=== PATIENT | female | born 1950 | race Caucasian/White ===

== ENCOUNTER 2017-12-03 19:13 | Inpatient (IN) | payer OTHER ==
[2017-12-03] MEDS ORDERED: NA CHLORIDE 0.9% 1,000 ML ONE (19:47)
[2017-12-03] MEDS ORDERED: NA CHLORIDE 0.9% 500 ML ONE (19:48)
[2017-12-03] MEDS ORDERED: ONDANSETRON 4 MG/2 ML VIAL ONE (19:48)
[2017-12-03] MEDS ORDERED: Morphine 2 MG/2 ML SYR ONE (19:49)
[2017-12-03 20:13] LABS: Absolute Lymphocytes (CBC) 1.9 K/uL (0.7-4.9); Absolute Monocytes 0.5 K/uL (0.1-1.3); Absolute Neutrophil 2.7 K/uL (1.8-8.0); Basophils % 0.9 % (0-1.3); Eosinophils % 2.5 % (0-4.4); Hematocrit 43.1 % (36.0-45.0); Lymphocytes % 35.1 % (15.3-44.8); MCH 32.6 pg (27.0-35.0); MCV 95.5 fL (80-100); MPV 9.7 fL (7.6-11.3); Monocytes % 9.6 % (3.3-12.3); RBC Red Blood Cell Count 4.51 M/uL (3.86-4.86)
[2017-12-03 20:23] LABS: Bicarbonate 28 mEq/L (21-31); Glucose Level 118 mg/dL (65-120); Lipase 29 U/L (22-51); Potassium 3.7 mEq/L (3.6-5.0); Sodium Level 137 mEq/L (135-145)
[2017-12-03 20:29] LABS: ALT/SGPT 78 IU/L (10-60); AST/SGOT 84 IU/L (10-42); Albumin 3.7 g/dL (3.2-5.5); Alkaline Phosphatase 148 IU/L (42-121); Amylase Level 76 U/L (28-100); BUN Blood Urea Nitrogen 6 mg/dL (6-20); Bilirubin Direct 0.2 mg/dL (0-0.2); Bilirubin Total 0.5 mg/dL (0.3-1.2); Protein, Total 7.2 g/dL (6.0-8.3)
[2017-12-03] MEDS ORDERED: MEPERIDINE HCL 25 MG/0.5 ML ONE (20:38)
[2017-12-03 21:52] LABS: Urine Bacteria <20 /HPF (<20); Urine Culture Reflex Order REFLEXED; Urine Mucus 1+ /HPF (NONE SEEN); Urine RBC <5 /HPF (NONE SEEN)
[2017-12-03 22:11] LABS: Urine Blood TRACE (NEG); Urine Glucose NEGATIVE (NEG); Urine Protein NEGATIVE (NEG); Urine pH 5.5 (5.0-7.0)
--- NOTE | 2017-12-03 22:18 | RAD REPORT ---
EXAM DESCRIPTION: CT - Abdomen Pelvis W Contrast - 12/03/2017 9:46 pm CLINICAL HISTORY: Abdominal pain. COMPARISON: 2011 TECHNIQUE: Computed axial tomography of the abdomen and pelvis was obtained. 100 cc Isovue-300 is ad ministered intravenously. Oral contrast was given. All CT scans are performed using dose optimization technique as appropriate and may include automated exposure control or mA/KV adjustment according to patient size. FINDINGS: A cirrhotic liver contains fatty infiltration. A tiny cyst is seen. The spleen is mildly enlarged. Pancreas, adrenals and kidneys appear unremarkable. The wall of most of the colon appears mildly to moderately thickened. Pneumatosis intestinalis is not seen. Free air is not present. An abscess is not noted Coarse calcifications in the right common iliac artery result in a high-grade stenosis IMPRESSION: Mild to moderate pancolitis
--- NOTE | 2017-12-03 22:42 | ER ---
Nurse's Notes [facility] Name: Roberta Owens Age: 67 yrs Sex: Female : 1950 Arrival Date: 12/03/2017 Time: 19:18 Bed 18 Private MD: Jarrett Rawls E Diagnosis: Abdominal pain. Pancolitis. UTI Presentation: 12/03 19:22 Presenting complaint: Patient states: I have been having abd pain, diarrhea, and rectal la1 pain for the last 24 hours. Transition of care: patient was not received from another setting of care. Onset of symptoms was December 03, 2017. Initial Sepsis Screen: Does the patient meet any 2 criteria? No. Patient's initial sepsis screen is negative. Does the patient have a suspected source of infection? No. Patient's initial sepsis screen is negative. Care prior to arrival: None. 19:22 Method Of Arrival: Wheelchair la1 19:22 Acuity: PHILIP 3 la1 Historical: - Allergies: 19:24 Aspirin; la1 19:24 Codeine; la1 - PMHx: 19:24 Anxiety; Back pain; Colitis; GERD; hepatitis c; la1 - PSHx: 19:24 Hysterectomy; neck sx; Lumpectomy; la1 - Immunization history:: Adult Immunizations up to date. - Social history:: Smoking status: Patient uses tobacco products, smokes one pack cigarettes per day. Screenin:41 Abuse screen: Denies threats or abuse. Nutritional screening: No deficits noted. bb Tuberculosis screening: No symptoms or risk factors identified. Fall Risk None identified. Assessment: 19:41 General: Appears in no apparent distress. uncomfortable, slender, Behavior is bb cooperative, anxious. Pain: Complains of pain in abdomen Pain currently is 8 out of 10 on a pain scale. Pain began 3 weeks ago worsening over the last 24 hours. Neuro: Level of Consciousness is awake, alert, obeys commands, Oriented to person, place, time, situation, Speech is normal. Cardiovascular: Heart tones S1 S2 present. Respiratory: Respiratory effort is even, unlabored, Breath sounds are clear bilaterally. GI: Abdomen is distended, Bowel sounds present X 4 quads. Abd is soft X 4 quads Abdomen is tender to palpation X 4 quads. Reports diarrhea. Derm: Skin is pink, warm \T\ dry. Musculoskeletal: Circulation, motion, and sensation intact. 20:33 Reassessment: pt states pain medication is not helping at all. Dr George notified new bb orders received pt medicated see DAMIAN, pt completed contrast CT notified. 20:50 Reassessment: pt states pain medication is helping pain has decreased. bb 21:34 Reassessment: pt to CT scan via wheelchair with net technical architect. Pt is A\T\O x 4, resp unlabored, bb still uncomfortable. IV site intact. 23:41 Reassessment: Patient and/or family updated on plan of care and expected duration. Pain bb level reassessed. Patient is alert, oriented x 3, equal unlabored respirations, skin warm/dry/pink. pt is awaiting orders prior to transfer to room 229. 12/04 00:11 Reassessment: Dr Maxwell at bedside for pt evaluation. bb 00:55 Reassessment: Patient and/or family updated on plan of care and expected duration. Pain bb level reassessed. Patient is alert, oriented x 3, equal unlabored respirations, skin warm/dry/pink. IV site intact, patent, fluids infusing, report called to Greer DUPONT pt transported to room 229 via wheelchair accompanied by family. Vital Signs: 12/03 19:24 BP 147 / 74; Pulse 106; Resp 19; Temp 99.0(TE); Pulse Ox 100% on R/A; Weight 47.17 kg; la1 Height 5 ft. 3 in. (160.02 cm); 20:51 BP 183 / 82; Pulse 87; Resp 18 S; Pulse Ox 97% on R/A; bb 22:10 BP 157 / 85; Pulse 84; Resp 18 S; Pulse Ox 99% on R/A; bb 23:00 BP 180 / 85; Pulse 78; Resp 18 S; Pulse Ox 98% on R/A; bb 12/04 00:52 BP 160 / 78; Pulse 70; Resp 20; cc 12/03 19:24 Body Mass Index 18.42 (47.17 kg, 160.02 cm) la1 ED Course: 12/03 19:18 Patient arrived in ED. es 19:19 Jarrett Rawls MD is Private Physician. es 19:23 Triage completed. la1 19:24 Zaheer George MD is Attending Physician. pkl 19:24 Arm band placed on left wrist. la1 19:30 Haresh Mckenzie, RN is Primary Nurse. mg2 19:41 Rama Martinez, KIAH is Primary Nurse. bb 19:41 Patient has correct armband on for positive identification. Placed in gown. Bed in low bb position. Call light in reach. Side rails up X2. Adult w/ patient. Pulse ox on. NIBP on. Warm blanket given. 19:41 Served as a anthropologist physical during rectal exam. bb 20:03 Missed attempt(s): 20 gauge in left antecubital area. bb 20:05 Inserted saline lock: 20 gauge in left forearm, using aseptic technique. Blood mg2 collected. 21:46 CT Abd/Pelvis - W/Contrast In Process Unspecified. EDMS 22:40 Cheli Schaffer MD is Hospitalizing Provider. pkl 23:40 Patient admitted, IV remains in place. bb Administered Medications: 20:06 Drug: NS 0.9% 500 ml Route: IV; Rate: bolus; Site: left forearm; mg2 21:32 Follow up: IV Status: Completed infusion; IV Intake: 500ml la1 20:06 Drug: morphine 2 mg Route: IVP; Site: left forearm; mg2 20:49 Follow up: Response: No adverse reaction; Pain is unchanged, physician notified bb 20:06 Drug: Zofran 4 mg Route: IVP; Site: left forearm; mg2 20:49 Follow up: Response: No adverse reaction bb 20:20 Drug: Demerol 25 mg Route: IVP; Site: left forearm; bb 21:30 Follow up: Response: Pain is decreased la1 21:32 Drug: NS 0.9% 1000 ml Route: IV; Rate: 100 ml/hr; Site: left forearm; la1 12/04 00:56 Follow up: IV Status: Infusion continued upon admission; IV Intake: 250ml bb Point of Care Testing: Guaiac: 12/03 19:44 Stool Guaiac: Negative; Stool Hemoccult Control: Pass; bb Intake: 21:32 IV: 500ml; Total: 500ml. la1 12/04 00:56 IV: 250ml; Total: 750ml. bb Outcome: 12/03 22:41 Decision to Hospitalize by Provider. pkl 23:40 Instructed on the need for admit. bb 12/04 00:55 Admitted to Tele accompanied by nurse, family with patient, via wheelchair, room 229, bb with chart, Report called to Greer DUPONT Condition: stable 00:57 Patient left the ED. rudi Signatures: Dispatcher [employer] Zaheer Ponce MD MD pkl Salyer, Edna es Ballard, Brenda RN RN bb Sandy Al Lee RN RN la1 Haresh Mckenzie RN RN mg2
--- NOTE | 2017-12-03 22:42 | EDPHYS ---
Physician Documentation [facility] Name: Roberta Owens Age: 67 yrs Sex: Female : 1950 Arrival Date: 12/03/2017 Time: 19:18 Bed 18 Private MD: Jarrett Rawls E ED Physician Zaheer George HPI: 12/03 19:44 This 67 yrs old Female presents to ER via Wheelchair with complaints of pkl Abdominal Pain, Rectal Pain. 19:44 The patient presents with abdominal pain that is diffuse, rectal pain. Onset: The pkl symptoms/episode began/occurred 3 day(s) ago. Associated signs and symptoms: Pertinent positives: diarrhea. Historical: - Allergies: 19:24 Aspirin; la1 19:24 Codeine; la1 - PMHx: 19:24 Anxiety; Back pain; Colitis; GERD; hepatitis c; la1 - PSHx: 19:24 Hysterectomy; neck sx; Lumpectomy; la1 - Immunization history:: Adult Immunizations up to date. - Social history:: Smoking status: Patient uses tobacco products, smokes one pack cigarettes per day. ROS: 19:44 Eyes: Negative for injury, pain, redness, and discharge, ENT: Negative for injury, pkl pain, and discharge, Neck: Negative for injury, pain, and swelling, Cardiovascular: Negative for chest pain, palpitations, and edema, Respiratory: Negative for shortness of breath, cough, wheezing, and pleuritic chest pain. 19:44 Abdomen/GI: Positive for abdominal pain, diarrhea, of the right upper quadrant, left upper quadrant, right lower quadrant and left lower quadrant. 19:44 Back: Negative for pain at rest, acute changes. 19:44 : Negative for urinary symptoms. 19:44 MS/extremity: Negative for acute changes. 19:44 Skin: Negative for rash. 19:44 Neuro: Negative for altered mental status. Exam: 19:44 Head/Face: Normocephalic, atraumatic. Eyes: Pupils equal round and reactive to light, pkl extra-ocular motions intact. Lids and lashes normal. Conjunctiva and sclera are non-icteric and not injected. Cornea within normal limits. Periorbital areas with no swelling, redness, or edema. ENT: Nares patent. No nasal discharge, no septal abnormalities noted. Tympanic membranes are normal and external auditory canals are clear. Oropharynx with no redness, swelling, or masses, exudates, or evidence of obstruction, uvula midline. Mucous membranes moist. Neck: Trachea midline, no thyromegaly or masses palpated, and no cervical lymphadenopathy. Supple, full range of motion without nuchal rigidity, or vertebral point tenderness. No Meningismus. Chest/axilla: Normal chest wall appearance and motion. Nontender with no deformity. No lesions are appreciated. Cardiovascular: Regular rate and rhythm with a normal S1 and S2. No gallops, murmurs, or rubs. Normal PMI, no JVD. No pulse deficits. Respiratory: Lungs have equal breath sounds bilaterally, clear to auscultation and percussion. No rales, rhonchi or wheezes noted. No increased work of breathing, no retractions or nasal flaring. 19:44 Abdomen/GI: Bowel sounds: normal, Palpation: soft, mild abdominal tenderness, in the right lower quadrant and left lower quadrant, Rectal exam: Stool: guaiac negative, the exam is chaperoned by the nurse. 19:44 Back: Exam negative for acute changes. 19:44 : Exam negative for acute changes. 19:44 Musculoskeletal/extremity: Exam is negative for acute changes. 19:44 Skin: Exam negative for rash. 19:44 Neuro: Orientation: is normal, Mentation: is normal, Cranial nerves: grossly normal, Motor: is normal. Vital Signs: 19:24 BP 147 / 74; Pulse 106; Resp 19; Temp 99.0(TE); Pulse Ox 100% on R/A; Weight 47.17 kg; la1 Height 5 ft. 3 in. (160.02 cm); 20:51 BP 183 / 82; Pulse 87; Resp 18 S; Pulse Ox 97% on R/A; bb 22:10 BP 157 / 85; Pulse 84; Resp 18 S; Pulse Ox 99% on R/A; bb 23:00 BP 180 / 85; Pulse 78; Resp 18 S; Pulse Ox 98% on R/A; bb 12/04 00:52 BP 160 / 78; Pulse 70; Resp 20; cc 12/03 19:24 Body Mass Index 18.42 (47.17 kg, 160.02 cm) la1 MDM: 12/03 19:24 Patient medically screened. pkl 22:39 Data reviewed: vital signs, nurses notes, lab test result(s), radiologic studies, CT pkl scan, plain films. 12/03 19:43 Order name: Amylase, Serum; Complete Time: 20:45 pkl 12/03 19:43 Order name: Basic Metabolic Panel; Complete Time: 20:45 pkl 12/03 19:43 Order name: CBC with Diff; Complete Time: 20:45 pkl 12/03 19:43 Order name: Creatinine for Radiology; Complete Time: 20:45 pkl 12/03 19:43 Order name: Hepatic Function; Complete Time: 20:45 pkl 12/03 19:43 Order name: Lipase; Complete Time: 20:45 pkl 12/03 19:43 Order name: Urine Microscopic Only; Complete Time: 22:05 pkl 12/03 19:43 Order name: Stool Culture pkl 12/03 19:43 Order name: CT Abd/Pelvis - W/Contrast; Complete Time: 22:26 pkl 12/03 21:32 Order name: Urine Dipstick--Ancillary (enter results); Complete Time: 22:26 la1 12/03 21:54 Order name: Urine Culture [facility] 12/03 19:43 Order name: IV Saline Lock; Complete Time: 20:50 pkl 12/03 19:43 Order name: Labs collected and sent; Complete Time: 20:50 pkl 12/03 19:43 Order name: Urine Dipstick-Ancillary (obtain specimen); Complete Time: 20:50 pkl Administered Medications: 20:06 Drug: NS 0.9% 500 ml Route: IV; Rate: bolus; Site: left forearm; mg2 21:32 Follow up: IV Status: Completed infusion; IV Intake: 500ml la1 20:06 Drug: morphine 2 mg Route: IVP; Site: left forearm; mg2 20:49 Follow up: Response: No adverse reaction; Pain is unchanged, physician notified bb 20:06 Drug: Zofran 4 mg Route: IVP; Site: left forearm; mg2 20:49 Follow up: Response: No adverse reaction bb 20:20 Drug: Demerol 25 mg Route: IVP; Site: left forearm; bb 21:30 Follow up: Response: Pain is decreased la1 21:32 Drug: NS 0.9% 1000 ml Route: IV; Rate: 100 ml/hr; Site: left forearm; la1 12/04 00:56 Follow up: IV Status: Infusion continued upon admission; IV Intake: 250ml bb Point of Care Testing: Guaiac: 12/03 19:44 Stool Guaiac: Negative; Stool Hemoccult Control: Pass; bb Disposition: 12/03/17 22:41 Hospitalization ordered by Cheli Schaffer for Inpatient Admission. Preliminary diagnosis is Abdominal pain. Pancolitis. UTI. - Bed requested for Telemetry/MedSurg (Inpatient). - Status is Inpatient Admission. bb - Condition is Stable. - Problem is new. - Symptoms are unchanged. UTI on Admission? Yes Signatures: Dispatcher [employer] EDMS Zaheer George MD MD pkl Claire Khalil RN RN Rama Martinez RN RN bb Johan Zepeda RN RN la1 Haresh Mckenzie RN RN mg2 Corrections: (The following items were deleted from the chart) 23:04 22:41 Hospitalization Ordered by Cheli Schaffer MD for Inpatient Admission. Preliminary fc diagnosis is Abdominal pain. Pancolitis. UTI. Bed requested for Telemetry/MedSurg (Inpatient). Status is Inpatient Admission. Condition is Stable. Problem is new. Symptoms are unchanged. UTI on Admission? Yes. pkl 12/04 00:57 12/03 23:04 12/03/2017 22:41 Hospitalization Ordered by Cheli Schaffer MD for Inpatient bb Admission. Preliminary diagnosis is Abdominal pain. Pancolitis. UTI. Bed requested for Telemetry/MedSurg (Inpatient). Status is Inpatient Admission. Condition is Stable. Problem is new. Symptoms are unchanged. UTI on Admission? Yes. fc
--- NOTE | 2017-12-04 00:31 | P.HP ---
Certification for Inpatient Patient admitted to: Inpatient With expected LOS: >2 Midnights Practitioner: I am a practitioner with admitting privileges, knowledge of patient current condition, hospital course, and medical plan of care. Services: Services provided to patient in accordance with Admission requirements found in Title 42 Section 412.3 of the Code of Federal Regulations Patient History Date of Service: 12/04/17 Reason for admission: pancolitis History of Present Illness: Ms Owens is a 67 years old woman with history of chronic back pain, IBS, previous episodes of colitis, tobacco abuse, who start about 3 days ago with severe abdominal pain. The pain is diffuse, associated with diarrhea. She denied nausea, vomiting, fever or chills. She has had this symptoms in the past. Her pain is about 9/10 of intensity. Lab work shows normal WBC count, liver function mildly abnormal, UA consistent with UTI. CT abd/pelvis report pancolitis. Allergies aspirin Allergy (Unverified 10/27/14 15:56) Unknown codeine [Codeine] Allergy (Verified 12/19/11 13:11) Itching/Hives/Rash - Past Medical/Surgical History -: colitis -: Hepatitis C -: Chrnic back pain -: anxiety -: tobacco abuse -: IBS -: hysterectomy -: lumpectomy - Family History Family History: Reviewed- Non-Contributory - Social History Smoking Status: Current every day smoker Counseled patient to stop smoking for: less than 10 minutes Alcohol use: No CD- Drugs: No Place of Residence: Home Review of Systems 10-point ROS is otherwise unremarkable Physical Examination - Physical Exam General: Alert, In no apparent distress HEENT: Atraumatic, PERRLA, Mucous membr. moist/pink, EOMI, Sclerae nonicteric Neck: Supple, 2+ carotid pulse no bruit, No LAD, Without JVD or thyroid abnormality Respiratory: Clear to auscultation bilaterally, Normal air movement Cardiovascular: Regular rate/rhythm, Normal S1 S2 Gastrointestinal: Normal bowel sounds, Tenderness (diffuse) Musculoskeletal: No tenderness Integumentary: No rashes Neurological: Normal speech, Normal strength at 5/5 x4 extr, Normal tone, Normal affect Lymphatics: No axilla or inguinal lymphadenopathy - Studies Laboratory Data (last 24 hrs) 12/03/17 19:50: Creatinine 0.59 12/03/17 19:50: WBC 5.3, Hgb 14.7, Hct 43.1, Plt Count 119 L 12/03/17 19:50: Sodium 137, Potassium 3.7, BUN 6, Creatinine 0.61, Glucose 118, Total Bilirubin 0.5, AST 84 H, ALT 78 H, Alkaline Phosphatase 148 H, Amylase 76 , Lipase 29 Assessment and Plan - Plan The patient will be admitted due to pancolitis. This is not her first episode. Will check for C.Diff, order IV fluids, clear liquid diet. Start empiric treatment with Cipro and Flagyl. Consult Dr Fortune for evaluation and recommendations. Urine culture in process. - Advance Directives Does patient have a Living Will: No Does patient have a Durable POA for Healthcare: No - Code Status/Comfort Care Code Status Assessed: Yes Code Status: Full Code
[2017-12-04] MEDS ORDERED: FENTANYL CITR 100 MCG/2 ML IV PRN (00:51)
[2017-12-04] MEDS ORDERED: ACETAMINOPHEN 500 MG TAB PO PRN (00:51)
[2017-12-04] MEDS ORDERED: ONDANSETRON 4 MG/2 ML VIAL IV PRN (00:51)
[2017-12-04] MEDS: CIPROFLOXACIN 400mg IV 400 MG/200 ML BAG IV SCH ×2 (01:35→12:35)
[2017-12-04] MEDS: NA CHLORIDE 0.9% 1,000 ML IV SCH ×2 (01:35→11:00)
[2017-12-04 01:38] VITALS: BMI 18.8
[2017-12-04] MEDS: METRONIDAZOLE 500mg IVPB 500 MG/100 ML BAG IV SCH ×2 (03:00→08:21)
[2017-12-04] MEDS: MEPERIDINE HCL 25 MG/0.5 ML IV PRN ×2 (03:01→12:35)
[2017-12-04 05:16] LABS: Absolute Lymphocytes (CBC) 1.9 K/uL (0.7-4.9); Absolute Monocytes 0.4 K/uL (0.1-1.3); Absolute Neutrophil 2.1 K/uL (1.8-8.0); Basophils % 0.7 % (0-1.3); Hematocrit 39.8 % (36.0-45.0); Lymphocytes % 42.4 % (15.3-44.8); MCH 32.5 pg (27.0-35.0); MCV 96.9 fL (80-100); MPV 9.6 fL (7.6-11.3); Monocytes % 9.1 % (3.3-12.3); RBC Red Blood Cell Count 4.11 M/uL (3.86-4.86)
[2017-12-04] MEDS ORDERED: HYDRALAZINE HCL 20 MG/ML VIAL IV ONE (05:20)
[2017-12-04 05:24] LABS: BUN Blood Urea Nitrogen 5 mg/dL (6-20); Bicarbonate 29 mEq/L (21-31); Glucose Level 100 mg/dL (65-120); Magnesium 2.1 mg/dL (1.8-2.5); Potassium 3.7 mEq/L (3.6-5.0); Sodium Level 139 mEq/L (135-145)
[2017-12-04] MEDS ORDERED: POTASSIUM CL SA 10 MEQ TAB PO ONE (05:42)
[2017-12-04] MEDS ORDERED: ALPRAZOLAM 1 MG TABLET PO PRN (09:57)
[2017-12-04 17:07] VITALS: BP 164/56; TEMP 99
[2017-12-04 17:10] VITALS: O2SAT 98
[2017-12-05] MEDS ORDERED: THYROID 30 MG TAB PO SCH (06:30)
[2017-12-05] MEDS ORDERED: PANTOPRAZOLE 40MG TABLET PO SCH (06:30)
== END 2017-12-04 17:05 | disposition home or self-care (01) | DRG 386 ==
LOC: ER 19:13 → ERHOLD 22:41 → 2ND 12-04 00:45
PROVIDERS: ADMIT Internal Medicine; ATTEND Internal Medicine
DX: K51.00 Ulcerative (chronic) pancolitis without complications (principal); N39.0 Urinary tract infection, site not specified; Z88.6 Allergy status to analgesic agent; F17.210 Nicotine dependence, cigarettes, uncomplicated
CPT/HCPCS: 36415; 74177; 80048; 80076; 81003; 81015; 82150; 83690; 83735; 85025; 87077; 87086; 87088; 87186; 96361; 96374; 96375; 99285; J0360; J0744; J2175; J2270; J2405; J3010; J7030; Q9967

== ENCOUNTER 2019-02-13 21:21 | Observation (INO) | payer OTHER ==
[2019-02-13 22:39] LABS: Absolute Lymphocytes (CBC) 1.9 K/uL (0.7-4.9); Basophils % 0.9 % (0-1.3); Hematocrit 43.2 % (36.0-45.0); Lymphocytes % 40.5 % (15.3-44.8); RBC Red Blood Cell Count 4.38 M/uL (3.86-4.86)
[2019-02-13] MEDS ORDERED: ONDANSETRON 4 MG/2 ML VIAL ONE (22:39)
[2019-02-13] MEDS ORDERED: FENTANYL CITR 100 MCG/2 ML ONE (22:39)
[2019-02-13] MEDS ORDERED: NA CHLORIDE 0.9% 1,000 ML ONE (22:39)
[2019-02-13 22:42] LABS: Protime INR 1.13
[2019-02-13 22:52] LABS: Urine Blood NEGATIVE (NEG); Urine Glucose NEGATIVE (NEG); Urine Protein NEGATIVE (NEG); Urine pH 5.5 (5.0-7.0)
[2019-02-13 23:00] LABS: ALT/SGPT 139 U/L (12-78); AST/SGOT 142 U/L (15-37); Albumin 3.7 g/dL (3.4-5.0); Alkaline Phosphatase 216 U/L (45-117); BUN Blood Urea Nitrogen 8 mg/dL (7-18); Bicarbonate 30 mmol/L (21-32); Bilirubin Direct 0.2 mg/dL (0-0.2); Bilirubin Total 0.5 mg/dL (0.2-1.0); Glucose Level 110 mg/dL (74-106); Magnesium 2.2 mg/dL (1.8-2.4); NT PRO-BNP 125 pg/mL (<125); Potassium 4.5 mmol/L (3.5-5.1); Protein, Total 7.6 g/dL (6.4-8.2); Sodium Level 141 mmol/L (136-145); Troponin (Emerg Dept Use Only) < 0.02 ng/mL (0.0-0.045)
[2019-02-14] MEDS ORDERED: CEFTRIAXONE/SWI 1gm 1 GM/10 ML SYR ONE (00:11)
--- NOTE | 2019-02-14 02:29 | EDPHYS ---
Physician Documentation [facility] Name: Roberta Owens Age: 68 yrs Sex: Female : 1950 Arrival Date: 02/13/2019 Time: 21:24 Bed 23 Private MD: ED Physician Melvin Whitfield HPI: 02/13 22:11 This 68 yrs old Female presents to ER via Ambulatory with complaints of Back yonis Pain. 22:11 The patient presents with pain that is acute, with no known mechanism of injury. The yonis symptoms are located in the low back. Onset: The symptoms/episode began/occurred 2 day(s) ago. The pain does not radiate. Associated signs and symptoms: The patient has no apparent associated signs or symptoms. The problem was sustained from unknown cause. Modifying factors: The patient symptoms are alleviated by remaining still, the patient symptoms are aggravated by movement. Severity of symptoms: At their worst the symptoms were moderate, in the emergency department the symptoms are unchanged. The patient has not experienced similar symptoms in the past. Historical: - Allergies: 21:43 Aspirin; aj1 21:43 Codeine; aj1 - Home Meds: 21:43 [place] Thyroid Oral [Active]; Aciphex Oral [Active]; Hydrocodone-Acetaminophen Oral aj1 [Active]; Alprazolam Oral [Active]; Dexilant oral oral [Active]; - PMHx: 21:43 Anxiety; Back pain; Colitis; GERD; Hepatitis C; aj1 - PSHx: 21:43 Hysterectomy; neck sx; aj1 - Immunization history:: Flu vaccine is not up to date. - Social history:: Smoking status: Patient uses tobacco products, smokes one pack cigarettes per day. - Ebola Screening: : Patient denies travel to an Ebola-affected area in the 21 days before illness onset. - Family history:: not pertinent. ROS: 22:11 Constitutional: Negative for fever, chills, and weight loss, Eyes: Negative for injury, yonis pain, redness, and discharge, ENT: Negative for injury, pain, and discharge, Neck: Negative for injury, pain, and swelling, Cardiovascular: Negative for chest pain, palpitations, and edema, Respiratory: Negative for shortness of breath, cough, wheezing, and pleuritic chest pain, Abdomen/GI: Negative for abdominal pain, nausea, vomiting, diarrhea, and constipation, : Negative for injury, bleeding, discharge, and swelling, MS/Extremity: Negative for injury and deformity, Skin: Negative for injury, rash, and discoloration, Neuro: Negative for headache, weakness, numbness, tingling, and seizure, Psych: Negative for depression, anxiety, suicide ideation, homicidal ideation, and hallucinations, Allergy/Immunology: Negative for hives, rash, and allergies, Endocrine: Negative for neck swelling, polydipsia, polyuria, polyphagia, and marked weight changes, Hematologic/Lymphatic: Negative for swollen nodes, abnormal bleeding, and unusual bruising. 22:11 Back: Positive for pain with movement, of the left low back and left mid back. Exam: 22:12 Constitutional: This is a well developed, well nourished patient who is awake, alert, yonis and in no acute distress. Head/Face: Normocephalic, atraumatic. Eyes: Pupils equal round and reactive to light, extra-ocular motions intact. Lids and lashes normal. Conjunctiva and sclera are non-icteric and not injected. Cornea within normal limits. Periorbital areas with no swelling, redness, or edema. ENT: Nares patent. No nasal discharge, no septal abnormalities noted. Tympanic membranes are normal and external auditory canals are clear. Oropharynx with no redness, swelling, or masses, exudates, or evidence of obstruction, uvula midline. Mucous membranes moist. Neck: Trachea midline, no thyromegaly or masses palpated, and no cervical lymphadenopathy. Supple, full range of motion without nuchal rigidity, or vertebral point tenderness. No Meningismus. Chest/axilla: Normal chest wall appearance and motion. Nontender with no deformity. No lesions are appreciated. Cardiovascular: Regular rate and rhythm with a normal S1 and S2. No gallops, murmurs, or rubs. Normal PMI, no JVD. No pulse deficits. Respiratory: Lungs have equal breath sounds bilaterally, clear to auscultation and percussion. No rales, rhonchi or wheezes noted. No increased work of breathing, no retractions or nasal flaring. Abdomen/GI: Soft, non-tender, with normal bowel sounds. No distension or tympany. No guarding or rebound. No evidence of tenderness throughout. Female : Normal external genitalia. Skin: Warm, dry with normal turgor. Normal color with no rashes, no lesions, and no evidence of cellulitis. MS/ Extremity: Pulses equal, no cyanosis. Neurovascular intact. Full, normal range of motion. Neuro: Awake and alert, GCS 15, oriented to person, place, time, and situation. Cranial nerves II-XII grossly intact. Motor strength 5/5 in all extremities. Sensory grossly intact. Cerebellar exam normal. Normal gait. Psych: Awake, alert, with orientation to person, place and time. Behavior, mood, and affect are within normal limits. 22:12 Back: pain, that is moderate, ROM is painful, normal spinal alignment noted, CVA tenderness, is absent, vertebral tenderness, is not appreciated, muscle spasm, is appreciated in the left low back and left mid back. Vital Signs: 21:43 BP 191 / 59; Pulse 93; Resp 18; Temp 98.3; Pulse Ox 97% on R/A; Weight 48.08 kg (R); aj1 Height 5 ft. 3 in. (160.02 cm) (R); 22:40 BP 157 / 72 LA Supine; Pulse 82; Resp 18; Pulse Ox 98% on R/A; mg2 22:43 BP 167 / 73 RA Supine; Pulse 82; Resp 18; Pulse Ox 100% on R/A; mg2 23:42 BP 131 / 68; Pulse 82; Resp 16; Pulse Ox 99% on R/A; rv 08 00:00 BP 133 / 73; Pulse 91; Resp 21; Pulse Ox 97% on R/A; rv 02:20 BP 153 / 93; Pulse 91; Resp 20 S; Pulse Ox 97% on R/A; cc3 03:21 BP 158 / 84; Pulse 80; Resp 19 S; Pulse Ox 97% on R/A; Pain 0/10; cc3 04:00 BP 149 / 83; Pulse 82; Resp 19 S; Pulse Ox 98% on R/A; cc3 02/13 21:43 Body Mass Index 18.78 (48.08 kg, 160.02 cm) [facility] MDM: 02/13 21:55 Patient medically screened. [facility] 22:13 Data reviewed: vital signs, nurses notes, lab test result(s), EKG, radiologic studies, [facility] CT scan, plain films. 02/13 22:10 Order name: Basic Metabolic Panel [facility] 02/13 22:10 Order name: CBC with Diff [facility] 02/13 22:10 Order name: LFT's; Complete Time: 23:30 [facility] 02/13 22:10 Order name: Magnesium; Complete Time: 23:30 [facility] 02/13 22:10 Order name: NT PRO-BNP; Complete Time: 23:30 [facility] 02/13 22:10 Order name: PT-INR; Complete Time: 23:30 [facility] 02/13 22:10 Order name: Troponin (emerg Dept Use Only); Complete Time: 23:30 [facility] 02/13 22:10 Order name: Urine Culture [facility] 02/13 22:11 Order name: Basic Metabolic Panel; Complete Time: 23:30 [facility] 02/13 22:11 Order name: CBC with Automated Diff; Complete Time: 23:30 [facility] 02/13 22:31 Order name: Urine Dipstick--Ancillary (enter results); Complete Time: 23:30 cm6 02/14 03:41 Order name: Comprehensive Metabolic Panel [facility] 02/14 03:41 Order name: Comprehensive Metabolic Panel [facility] 02/14 03:41 Order name: Lipase [facility] 02/13 22:10 Order name: XRAY Chest (1 view) [facility] 02/13 22:10 Order name: CT Aorta for Dissection [facility] 02/14 03:41 Order name: Lipase [facility] 02/14 03:41 Order name: Protime (+INR) [facility] 02/14 03:41 Order name: Protime (+INR) [facility] 02/14 03:41 Order name: PTT, Activated Partial Thromb [facility] 02/14 03:41 Order name: PTT, Activated Partial Thromb [facility] 02/14 03:42 Order name: CBC with Automated Diff [facility] 02/14 03:42 Order name: Abdomen Exam Complete [facility] 02/14 03:43 Order name: Troponin I [facility] 02/14 03:43 Order name: Troponin I [facility] 02/14 03:52 Order name: Echo with Doppler [facility] 02/13 22:10 Order name: EKG; Complete Time: 22:12 [facility] 02/13 22:10 Order name: Cardiac monitoring; Complete Time: 22:29 [facility] 02/13 22:10 Order name: EKG - Nurse/Tech; Complete Time: 22:30 [facility] 02/13 22:10 Order name: IV Saline Lock; Complete Time: 22:30 [facility] 02/13 22:10 Order name: Labs collected and sent; Complete Time: : [facility] 02/13 22:10 Order name: O2 Per Protocol; Complete Time: : [facility] 02/13 22:10 Order name: O2 Sat Monitoring; Complete Time: : [facility] 02/13 22:10 Order name: Urine Dipstick-Ancillary (obtain specimen); Complete Time: :30 [facility] 02/14 03:41 Order name: CONS Pharmacy Consult [facility] 02/14 03:42 Order name: NPO EDMS Administered Medications: 22:27 Drug: NS 0.9% 500 ml Route: IV; Rate: bolus; Site: right antecubital; rv 22:56 Follow up: IV Status: Completed infusion; IV Intake: 500ml rv 22:27 Drug: fentaNYL (PF) 25 mcg Route: IVP; Site: right antecubital; rv 22:57 Follow up: Response: No adverse reaction rv 22:27 Drug: Zofran 4 mg Route: IVP; Site: right antecubital; rv 22:57 Follow up: Response: No adverse reaction rv 22:56 Drug: NS 0.9% 1000 ml Route: IV; Rate: 125 ml/hr; Site: right antecubital; rv 23:40 Drug: fentaNYL (PF) 25 mcg Route: IVP; Site: right antecubital; rv 02/14 00:11 Follow up: Response: Pain is decreased rv 00:01 Drug: Rocephin 1 grams Route: IV; Rate: per protocol; Site: right antecubital; rv 00:11 Follow up: IV Status: Completed infusion rv 02:31 Not Given (Other Intervention Used): fentaNYL (PF) 25 mcg IVP once cc3 02:32 Not Given (Patient Refused): Nicoderm CQ 21 mg/24 hr 1 patches Transdermal once fc 03:00 Drug: Dilaudid 0.5 mg Route: IVP; Site: right antecubital; cc3 03:20 Follow up: Response: No adverse reaction; Pain is decreased cc3 03:03 Drug: Pepcid 20 mg Route: IVP; Site: right antecubital; cc3 03:23 Follow up: Response: No adverse reaction cc3 03:07 Drug: Zofran 4 mg Route: IVP; Site: right antecubital; cc3 03:23 Follow up: Response: No adverse reaction cc3 Disposition: 02/14/19 02:27 Hospitalization ordered by Venessa Sanchez for Inpatient Admission. Preliminary diagnosis are Abdominal tenderness, Cholelithiasis, Unspecified cirrhosis of liver, Tobacco abuse counseling, Tobacco use. - Bed requested for Telemetry/MedSurg (Inpatient). - Status is Inpatient Admission. cc3 - Condition is Fair. - Problem is new. - Symptoms have improved. UTI on Admission? Yes Signatures: Dispatcher [employer] EDMS Yeny Villa RN RN aj1 Shannen Young RN RN Melvin Whitfield MD MD cha Vicente, Ronaldo, RN RN Blanca Carpenter 3 Claire Khalil RN Corrections: (The following items were deleted from the chart) 02:29 02:27 Hospitalization Ordered by Venessa Sanchez MD for Inpatient Admission. Preliminary yonis diagnosis is Abdominal tenderness; Cholelithiasis; Unspecified cirrhosis of liver. Bed requested for Telemetry/MedSurg (Inpatient). Status is Inpatient Admission. Condition is Fair. Problem is new. Symptoms have improved. UTI on Admission? Yes. [facility] 04:03 02:29 02/14/2019 02:27 Hospitalization Ordered by Venessa Sanchez MD for Inpatient mw Admission. Preliminary diagnosis is Abdominal tenderness; Cholelithiasis; Unspecified cirrhosis of liver; Tobacco abuse counseling; Tobacco use. Bed requested for Telemetry/MedSurg (Inpatient). Status is Inpatient Admission. Condition is Fair. Problem is new. Symptoms have improved. UTI on Admission? Yes. yonis 04:24 04:03 02/14/2019 02:27 Hospitalization Ordered by Venessa Sanchez MD for Inpatient cc3 Admission. Preliminary diagnosis is Abdominal tenderness; Cholelithiasis; Unspecified cirrhosis of liver; Tobacco abuse counseling; Tobacco use. Bed requested for Telemetry/MedSurg (Inpatient). Status is Inpatient Admission. Condition is Fair. Problem is new. Symptoms have improved. UTI on Admission? Yes. mw
--- NOTE | 2019-02-14 02:29 | ER ---
Nurse's Notes [facility] Name: Roberta Owens Age: 68 yrs Sex: Female : 1950 Arrival Date: 02/13/2019 Time: 21:24 Bed 23 Private MD: Diagnosis: Abdominal tenderness;Cholelithiasis;Unspecified cirrhosis of liver;Tobacco abuse counseling;Tobacco use Presentation: 02/13 21:30 Note Patient states that she needs to use the restroom before being triaged, will aj1 triage patient when she finishes using the bathroom. 21:35 Presenting complaint: Patient states: "I have got a bad back and neck, and theres aj1 stiffness where I had surgery on it. Today the pain starts at my neck, which Im not worried about, and goes down my spine, into my left hip and goes around into my hip and my leg is swelling up." Reports that she has been having this issue for the past 2 days, so she started taking Flagyl because she figured she was getting a bladder infection. Transition of care: patient was not received from another setting of care. Onset of symptoms was February 11, 2019. Risk Assessment: Do you want to hurt yourself or someone else? Patient reports no desire to harm self or others. Initial Sepsis Screen: Does the patient meet any 2 criteria? No. Patient's initial sepsis screen is negative. Does the patient have a suspected source of infection? No. Patient's initial sepsis screen is negative. Care prior to arrival: None. 21:35 Method Of Arrival: Ambulatory aj1 21:35 Acuity: PHILIP 3 aj1 Triage Assessment: 21:43 General: Appears in no apparent distress. uncomfortable, Behavior is calm, cooperative, aj1 appropriate for age. Pain: Complains of pain in back, pelvis and neck Pain currently is 7 out of 10 on a pain scale. Neuro: Level of Consciousness is awake, alert, obeys commands. Cardiovascular: Patient's skin is warm and dry. Respiratory: Airway is patent Respiratory effort is even, unlabored, Respiratory pattern is regular, symmetrical. Musculoskeletal: Range of motion: intact in all extremities. Historical: - Allergies: 21:43 Aspirin; aj1 21:43 Codeine; aj1 - Home Meds: 21:43 [place] Thyroid Oral [Active]; Aciphex Oral [Active]; Hydrocodone-Acetaminophen Oral aj1 [Active]; Alprazolam Oral [Active]; Dexilant oral oral [Active]; - PMHx: 21:43 Anxiety; Back pain; Colitis; GERD; Hepatitis C; aj1 - PSHx: 21:43 Hysterectomy; neck sx; aj1 - Immunization history:: Flu vaccine is not up to date. - Social history:: Smoking status: Patient uses tobacco products, smokes one pack cigarettes per day. - Ebola Screening: : Patient denies travel to an Ebola-affected area in the 21 days before illness onset. - Family history:: not pertinent. Screenin:39 Abuse screen: Denies threats or abuse. Denies injuries from another. Nutritional mg2 screening: No deficits noted. Tuberculosis screening: No symptoms or risk factors identified. Fall Risk IV access (20 points). Assessment: 22:37 General: Appears in no apparent distress. comfortable, Behavior is calm, cooperative. mg2 Pain: Complains of pain in left mid back and left low back and neck and pelvis and back Pain does not radiate. Pain currently is 7 out of 10 on a pain scale. Quality of pain is described as aching, Pain began gradually, Is intermittent. Neuro: Level of Consciousness is awake, alert, obeys commands, Oriented to person, place, time, situation. Cardiovascular: Capillary refill < 3 seconds Patient's skin is warm and dry. Respiratory: Airway is patent Respiratory effort is even, unlabored, Respiratory pattern is regular, symmetrical. GI: Reports lower abdominal pain, upper abdominal pain. GI: Reports nausea. : No signs and/or symptoms were reported regarding the genitourinary system. EENT: No signs and/or symptoms were reported regarding the EENT system. Derm: Skin is intact, is healthy with good turgor, Skin is pink, warm \\T\\ dry. normal. Musculoskeletal: Circulation, motion, and sensation intact. Capillary refill < 3 seconds. 23:41 Reassessment: Patient appears in no apparent distress at this time. No changes from rv previously documented assessment. Patient and/or family updated on plan of care and expected duration. Pain level reassessed. Patient is alert, oriented x 3, equal unlabored respirations, skin warm/dry/pink. patient complains of pain. referred to Dr Whitfield. given another dose of Fentanyl. patient taken to CT scan. 08/01 00:10 Reassessment: patient came back from CT scan. awaiting result. rv 02:20 Reassessment: Patient appears in no apparent distress at this time. Patient and/or cc3 family updated on plan of care and expected duration. Pain level reassessed. Patient is alert, oriented x 3, equal unlabored respirations, skin warm/dry/pink. 02:34 Reassessment: Pt refusing Nicotine patch. States that she is going to go out to smoke, fc daughter at her side. Dr Whitfield aware that pt is smoking. 03:21 Reassessment: Patient appears in no apparent distress at this time. Patient and/or cc3 family updated on plan of care and expected duration. Pain level reassessed. Patient is alert, oriented x 3, equal unlabored respirations, skin warm/dry/pink. Patient denies pain at this time. Patient states feeling better. Patient states symptoms have improved. 04:10 Reassessment: Patient appears in no apparent distress at this time. Patient and/or cc3 family updated on plan of care and expected duration. Pain level reassessed. Patient is alert, oriented x 3, equal unlabored respirations, skin warm/dry/pink. Patient for admission, room available in 422, report called and handed over to KIAH Bailon for continuity of care and management. 04:20 Reassessment: Patient appears in no apparent distress at this time. Patient and/or cc3 family updated on plan of care and expected duration. Pain level reassessed. Patient is alert, oriented x 3, equal unlabored respirations, skin warm/dry/pink. Patient left ER for admission vitally stable by wheelchair escorted by laundry techniciandanielle Avalos and the patient's daughters. No valuables left in the patient's room. Patient denies pain at this time. Patient states feeling better. Patient states symptoms have improved. Vital Signs: 02/13 21:43 BP 191 / 59; Pulse 93; Resp 18; Temp 98.3; Pulse Ox 97% on R/A; Weight 48.08 kg (R); aj1 Height 5 ft. 3 in. (160.02 cm) (R); 22:40 BP 157 / 72 LA Supine; Pulse 82; Resp 18; Pulse Ox 98% on R/A; mg2 22:43 BP 167 / 73 RA Supine; Pulse 82; Resp 18; Pulse Ox 100% on R/A; mg2 23:42 BP 131 / 68; Pulse 82; Resp 16; Pulse Ox 99% on R/A; rv 02/14 00:00 BP 133 / 73; Pulse 91; Resp 21; Pulse Ox 97% on R/A; rv 02:20 BP 153 / 93; Pulse 91; Resp 20 S; Pulse Ox 97% on R/A; cc3 03:21 BP 158 / 84; Pulse 80; Resp 19 S; Pulse Ox 97% on R/A; Pain 0/10; cc3 04:00 BP 149 / 83; Pulse 82; Resp 19 S; Pulse Ox 98% on R/A; cc3 02/13 21:43 Body Mass Index 18.78 (48.08 kg, 160.02 cm) aj1 ED Course: 02/13 21:24 Patient arrived in ED. ag3 21:39 Triage completed. aj1 21:43 Arm band placed on Patient placed in an exam room. aj1 21:55 Melvin Whitfield MD is Attending Physician. yonis 22:13 Haresh Mckenzie, KIAH is Primary Nurse. mg2 22:14 Radiology exam delayed due to lab results not completed at this time. (BUN/Creatinine). sj 22:35 XRAY Chest (1 view) In Process Unspecified. EDMS 22:40 No provider procedures requiring assistance completed. Inserted saline lock: 22 gauge mg2 in right forearm, using aseptic technique. Blood collected. 22:42 Patient has correct armband on for positive identification. child monitor on. Pulse mg2 ox on. NIBP on. Door closed. Warm blanket given. 22:49 Radiology exam delayed due to lab results not completed at this time. (BUN/Creatinine). 02/14 00:41 CT completed. Patient tolerated procedure well. Patient moved to CT via stretcher. Patient moved back from CT. 00:43 CT Aorta for Dissection In Process Unspecified. EDMS 02:26 Venessa Sanchez MD is Hospitalizing Provider. yonis 04:20 Patient admitted, IV remains in place. cc3 Administered Medications: 02/13 22:27 Drug: NS 0.9% 500 ml Route: IV; Rate: bolus; Site: right antecubital; rv 22:56 Follow up: IV Status: Completed infusion; IV Intake: 500ml rv 22:27 Drug: fentaNYL (PF) 25 mcg Route: IVP; Site: right antecubital; rv 22:57 Follow up: Response: No adverse reaction rv 22:27 Drug: Zofran 4 mg Route: IVP; Site: right antecubital; rv 22:57 Follow up: Response: No adverse reaction rv 22:56 Drug: NS 0.9% 1000 ml Route: IV; Rate: 125 ml/hr; Site: right antecubital; rv 23:40 Drug: fentaNYL (PF) 25 mcg Route: IVP; Site: right antecubital; rv 08 00:11 Follow up: Response: Pain is decreased rv 00:01 Drug: Rocephin 1 grams Route: IV; Rate: per protocol; Site: right antecubital; rv 00:11 Follow up: IV Status: Completed infusion rv 02:31 Not Given (Other Intervention Used): fentaNYL (PF) 25 mcg IVP once cc3 02:32 Not Given (Patient Refused): Nicoderm CQ 21 mg/24 hr 1 patches Transdermal once fc 03:00 Drug: Dilaudid 0.5 mg Route: IVP; Site: right antecubital; cc3 03:20 Follow up: Response: No adverse reaction; Pain is decreased cc3 03:03 Drug: Pepcid 20 mg Route: IVP; Site: right antecubital; cc3 03:23 Follow up: Response: No adverse reaction cc3 03:07 Drug: Zofran 4 mg Route: IVP; Site: right antecubital; cc3 03:23 Follow up: Response: No adverse reaction cc3 Intake: 02/13 22:56 IV: 500ml; Total: 500ml. rv Outcome: 02/14 02:27 Decision to Hospitalize by Provider. yonis 04:20 Admitted to Tele accompanied by tech, family with patient, via wheelchair, room 422, cc3 with chart, Report called to KIAH Bailon 04:20 Condition: stable 04:20 Instructed on the need for admit, Demonstrated understanding of instructions. 04:24 Patient left the ED. cc3 Signatures: Dispatcher [employer] EDYeny Guevara RN RN Melvin Ross MD MD cha Hagler, Ervin eh Jones, Susan sj Chretien, Felicia, RN RN fc Gardose, Michele, RN RN [facility] Jason Feliciano RN RN rv Cordel, Blanca cc3 Quyen Gifford ag3 Corrections: (The following items were deleted from the chart) 03:38 03:21 BP 158 / 84; Pulse 80bpm; Resp 19bpm; Spontaneous; Pulse Ox 97% RA; cc3 cc3 04:30 03:21 Reassessment: Patient appears in no apparent distress at this time. Patient cc3 and/or family updated on plan of care and expected duration. Pain level reassessed. Patient is alert, oriented x 3, equal unlabored respirations, skin warm/dry/pink. cc3
[2019-02-14] MEDS ORDERED: FAMOTIDINE 20 MG/2 ML VIAL IV ONE (02:54)
[2019-02-14] MEDS ORDERED: ONDANSETRON 4 MG/2 ML VIAL ONE (02:54)
[2019-02-14] MEDS ORDERED: HYDROMORPHONE HCL 0.5 MG/0.5 ML INJ ONE (02:54)
[2019-02-14] MEDS ORDERED: ACETAMINOPHEN 500 MG TAB PO PRN (03:36)
[2019-02-14] MEDS ORDERED: ONDANSETRON 4 MG/2 ML VIAL IV PRN (03:36)
[2019-02-14] MEDS ORDERED: MORPHINE 4 MG/ML SYR IV PRN (03:36)
[2019-02-14] MEDS ORDERED: NA CHLORIDE 0.9% 1,000 ML IV SCH (04:00)
[2019-02-14 04:38] VITALS: O2SAT 97
[2019-02-14 04:40] VITALS: BMI 19.3
[2019-02-14] MEDS ORDERED: HYDROMORPHONE HCL 1 MG/ML INJ IV PRN (04:42)
[2019-02-14] MEDS ORDERED: PNEUMOCOCCAL VACCINE 0.5 ML IMVAC ONE (07:00)
[2019-02-14 07:17] LABS: Absolute Lymphocytes (CBC) 1.7 K/uL (0.7-4.9); Basophils % 0.7 % (0-1.3); Hematocrit 38.3 % (36.0-45.0); Lymphocytes % 43.4 % (15.3-44.8); MPV 9.6 fL (7.6-11.3); RBC Red Blood Cell Count 3.94 M/uL (3.86-4.86)
[2019-02-14 07:19] LABS: Protime INR 1.1
[2019-02-14] MEDS ORDERED: ACETAMIN/CAFFEINE/BUTALB TAB PO ONE (07:32)
--- NOTE | 2019-02-14 07:35 | EKG ---
Test Date: 2019-02-13 Test Time: 22:33:46 [employer]: HENRYT MEASUREMENT RESULTS: Intervals: Rate: 86 OK: 148 QRSD: 70 QT: 340 QTc: 406 Wink: P: 79 OK: 148 QRS: 62 T: 65 INTERPRETIVE STATEMENTS: Normal sinus rhythm Nonspecific T wave abnormality Abnormal ECG Compared to ECG 10/16/2014 20:41:39 T-wave abnormality now present Electronically Signed On 02-14-19 07:35:01 CDT by Chad Vargas
--- NOTE | 2019-02-14 07:40 | P.HP ---
Certification for Inpatient Patient admitted to: Inpatient With expected LOS: >2 Midnights Patient will require the following post-hospital care: None Practitioner: I am a practitioner with admitting privileges, knowledge of patient current condition, hospital course, and medical plan of care. Services: Services provided to patient in accordance with Admission requirements found in Title 42 Section 412.3 of the Code of Federal Regulations Patient History Date of Service: 02/14/19 Reason for admission: Abdominal pain/left flank tenderness History of Present Illness: Patient is a 68-year-old female with history of hepatitis-C who came into the hospital with abdominal tenderness. Patient's pain was mainly in the left flank. This pain radiated down and to the inguinal region. Patient has also had some right-sided abdominal tenderness This is more vague. Patient has been having some discomfort in that area for quite a while. She wanted to come into the hospital for further evaluation. In the emergency room EKG and troponins have been negative. Patient had CT aortic dissection which revealed calcified aorta as well as distended gallbladder. Nothing really explained the left flank tenderness. No inflammatory changes of the kidneys or signs of pyelonephritis. This patient be admitted to the hospital for further workup. Allergies codeine [Codeine] Allergy (Severe, Verified 12/04/17 01:16) Itching/Hives/Rash aspirin Allergy (Mild, Verified 12/04/17 01:16) Nausea/Vomiting Home Medications: ALPRAZolam [Xanax*] 1 mg PO QID PRN 12/04/17 Hydrocodone/Acetaminophen [Hydrocodone-Acetamin 10-325 mg] 1 each PO Q4H PRN Thyroid Tab [Mikana Thyroid*] 20 mg PO DAILY 12/04/17 Dexlansoprazole [Dexilant] 60 mg PO DAILY 02/14/19 Sumatriptan [Imitrex] 1 spray NS DAILY 02/14/19 - Past Medical/Surgical History Has patient received pneumonia vaccine in the past: No Diabetic: No -: colitis -: Hepatitis C -: Chronic back pain -: anxiety -: tobacco abuse -: IBS -: hysterectomy -: lumpectomy L - Family History Father Medical History: Heart disease Mother Medical History: Heart disease - Social History Smoking Status: Heavy Tobacco smoker (>10 cigarettes/day) Alcohol use: No CD- Drugs: No Caffeine use: Yes Place of Residence: Home Review of Systems 10-point ROS is otherwise unremarkable Physical Examination - Vital Signs Temperature: 97.5 F Blood Pressure: 183/83 Pulse: 87 Respirations: 16 Pulse Ox (%): 96 - Physical Exam General: Alert, In no apparent distress, Oriented x3, Cachectic HEENT: Atraumatic, PERRLA, Mucous membr. moist/pink, EOMI, Sclerae nonicteric Neck: Supple, 2+ carotid pulse no bruit, No LAD, Without JVD or thyroid abnormality Respiratory: Diminished, Other (Coarse breath sounds) Cardiovascular: Regular rate/rhythm, Normal S1 S2, No murmurs Gastrointestinal: Normal bowel sounds, Soft and benign, Non-distended, Tenderness (Left flank) Musculoskeletal: No clubbing, No swelling, No tenderness Integumentary: No rashes Neurological: Normal gait, Normal speech, Normal strength at 5/5 x4 extr, Normal tone, Sensation intact, Cranial nerves 3-12 intact, Normal affect Lymphatics: No axilla or inguinal lymphadenopathy - Studies Laboratory Data (last 24 hrs) 02/13/19 22:25: PT 13.3 H, INR 1.13 02/13/19 22:25: WBC 4.6, Hgb 14.6, Hct 43.2, Plt Count 105 L 02/13/19 22:25: Sodium 141, Potassium 4.5, BUN 8, Creatinine 0.89, Glucose 110 H , Magnesium 2.2, Total Bilirubin 0.5, AST 142 H, ALT 139 H, Alkaline Phosphatase 216 H Assessment & Plan - Problems (Diagnosis) (1) Abdominal pain Current Visit: Yes Status: Acute (2) History of constipation Current Visit: Yes Status: Acute (3) Left flank tenderness Current Visit: Yes Status: Acute (4) Gallbladder disorder Current Visit: Yes Status: Acute (5) Hepatic cirrhosis due to chronic hepatitis C infection Current Visit: Yes Status: Acute - Plan 1. Continue with IV hydration 2. Continue with pain control 3. NPO-awaiting abdominal ultrasound findings 4. General surgery consultation; 6. Serial H&H, and we will monitor CBC, BMP, LFTs and lipase along with electrolytes. 7. GI and DVT prophylaxis Discharge Plan: Home Plan to discharge in: Greater than 2 days - Advance Directives Does patient have a Living Will: No Does patient have a Durable POA for Healthcare: No - Code Status/Comfort Care Code Status Assessed: Yes Code Status: Full Code Critical Care: No Time Spent Managing PTS Care (In Minutes): 45
[2019-02-14 07:42] LABS: Albumin 3.3 g/dL (3.4-5.0); Bilirubin Total 0.5 mg/dL (0.2-1.0); Potassium 4.9 mmol/L (3.5-5.1)
--- NOTE | 2019-02-14 08:14 | RAD REPORT ---
EXAM DESCRIPTION: RAD - Chest Single View - 02/13/2019 10:36 pm CLINICAL HISTORY: Left-sided chest, neck and arm pain COMPARISON: May 2013 TECHNIQUE: AP portable chest image was obtained 2232 hours . FINDINGS: No failure, infiltrate or mass lesions seen. Interstitial pattern matches the comparison. Granuloma seen in the right lung base. Trachea is midline. Heart and vasculature are normal. No measu rable pleural effusion and no pneumothorax. No acute bony abnormality seen. No acute aortic findings suspected. IMPRESSION: No acute cardiopulmonary process. Chest is stable from 2012.
[2019-02-14] MEDS ORDERED: PIPER/TAZO/NS 3.375gm 3.375 GM/100 ML BAG IVPB SCH (09:00)
[2019-02-14 09:33] LABS: Blood Morphology Comment NOT SEEN (NOT SEEN); Platelet Estimate DECR; Urine White Blood Cell Casts OK
--- NOTE | 2019-02-14 09:48 | RAD REPORT ---
EXAM DESCRIPTION: CT - Angio Aorta For Dissection - 02/14/2019 5:53 am CLINICAL HISTORY: The patient is 68 years old and is Female; PAIN TECHNIQUE: Axial computed tomographic angiography images of the chest, abdomen and pelvis with intra venous contrast using CT angiography protocol. Sagittal and coronal reformatted images were created and reviewed. This CT exam was performed using one or more of the following dose reduction techniq ues: automated exposure control, adjustment of the mA and/or kV according to patient size, and/or u se of iterative reconstruction technique. MIP reconstructed images were created and reviewed. COMPARISON: No relevant prior studies available. FINDINGS: VASCULATURE: AORTA: Minimal atherosclerosis of the aorta is present. Extensive atherosclerosis involving th e infrarenal abdominal aorta. No aortic aneurysm. No dissection. PULMONARY ARTERIES: Unremarkable as visualized. No pulmonary embolism is identified. GREAT VESSELS OF AORTIC ARCH: No acute findings. No dissection. No arterial occlusion or sig nificant stenosis. CELIAC TRUNK AND MESENTERIC ARTERIES: No acute findings. No occlusion or significant stenosis. RENAL ARTERIES: No acute findings. No occlusion or significant stenosis. ILIAC ARTERIES: No acute findings. No occlusion or significant stenosis. CHEST: LUNGS: The lungs are hyperinflated with mild bilateral centrilobular emphysematous change. Calci fied granuloma within the right lower lobe is present. The lungs are otherwise clear. PLEURAL SPACE: Unremarkable. No significant effusion. No pneumothorax. HEART: Unremarkable. No cardiomegaly. No significant pericardial effusion. ABDOMEN: LIVER: The liver is a diffuse nodular contour and is heterogeneous in appearance. There is a pun ctate 4 mm focus within the right hepatic lobe which is too small to accurately characterize. GALLBLADDER AND BILE DUCTS: Calcified gallstones are present. Pericholecystic inflammation with gallbladder wall thickening/enhancement is noted. No ductal dilation. PANCREAS: Unremarkable. No ductal dilation. No mass. SPLEEN: The spleen has a mottled appearance which may be secondary to the arterial phase of the exam. The spleen is enlarged. ADRENALS: Unremarkable. No mass. KIDNEYS AND URETERS: Unremarkable. No hydronephrosis. No solid mass. STOMACH AND BOWEL: The stomach is distended with food contents. The small bowel is normal in dewayne iber. A moderate amount of stool is present throughout colon. There is no mucosal thickening or evide nce of bowel obstruction. PELVIS: APPENDIX: No findings to suggest acute appendicitis. BLADDER: The bladder is minimally distended. REPRODUCTIVE: The patient is status post hysterectomy. CHEST, ABDOMEN and PELVIS: INTRAPERITONEAL SPACE: Unremarkable. No significant fluid collection. No free air. BONES/JOINTS: Bilateral avascular necrosis of the femoral heads is noted. The bones have a sligh tly mottled appearance without discrete mass. Degenerative change at L2-L3 is noted. No acute fract ure. No dislocation. SOFT TISSUES: Unremarkable. LYMPH NODES: Several prominent seamus hepatis lymph nodes are present, the largest of which measu res 2.8 cm. Few prominent retroperitoneal and periaortic lymph nodes are present. IMPRESSION: 1. No evidence of aortic aneurysm or dissection. Extensive atherosclerosis of the aort a. 2. Cirrhotic liver and splenomegaly. 3. Cholelithiasis with findings concerning for acute cholecystitis. 4. Peripancreatic, periaortic, and retroperitoneal adenopathy. Electronically signed by: Miriam Peng MD 02/14/2019 1:06 AM CDT Due to temporary technical issues with the PACS/Fluency reporting system, reports are being signed by the in house radiologist as a courtesy to ensure prompt reporting. The interpreting radiologist is f ully responsible for the content of the report.
[2019-02-14] MEDS ORDERED: MAGNESIUM HYDROXIDE 8% 30 ML PO ONE (10:32)
[2019-02-14] MEDS ORDERED: MAGNESIUM CITRATE 300 ML BOT PO SCH (11:00)
[2019-02-14] MEDS ORDERED: TRAMADOL HCL 50 MG TAB PO PRN (11:09)
[2019-02-14 11:56] LABS: Albumin 3.6 g/dL (3.4-5.0); Bilirubin Total 0.8 mg/dL (0.2-1.0); Potassium 4.2 mmol/L (3.5-5.1); Protein, Total 7.5 g/dL (6.4-8.2)
[2019-02-14 12:14] LABS: Absolute Lymphocytes (CBC) 1.6 K/uL (0.7-4.9); Basophils % 0.9 % (0-1.3); Hematocrit 43.7 % (36.0-45.0); Lymphocytes % 40.4 % (15.3-44.8); MPV 9.7 fL (7.6-11.3); RBC Red Blood Cell Count 4.48 M/uL (3.86-4.86)
[2019-02-14 12:42] VITALS: BP 153/72; TEMP 98.3
--- NOTE | 2019-02-14 13:49 | ECHO ---
HEIGHT: 5 ft 3 in WEIGHT: 109 lb 8 oz DATE OF STUDY: 02/14/[address]: Venessa Sanchez MD 2-DIMENSIONAL: YES M.MODE: YES DOPPLER: YES COLOR FLOW: YES TDS: YES PORTABLE: NO DEFINITY: NO BUBBLE STUDY: NO DIAGNOSIS: CHEST PAIN RULE OUT ACUTE CORONARY SYNDROME CARDIAC HISTORY: CATHERIZATION: YES SURGERY: NO PROSTHETIC VALVE: NO PACEMAKER: NO MEASUREMENTS (cm) DIASTOLIC (NORMALS) SYSTOLIC (NORMALS) IVSd 0.9 (0.6-1.2) LA Diam 3.1 (1.9-4.0) LVEF 72% LVIDd 3.1 (3.5-5.7) LVIDs 1.9 (2.0-3.5) %FS 40% LVPWd 1.0 (0.6-1.2) Ao Diam 2.4 (2.0-3.7) 2 DIMENSIONAL ASSESSMENT: RIGHT ATRIUM: NORMAL LEFT ATRIUM: NORMAL RIGHT VENTRICLE: NORMAL LEFT VENTRICLE: NORMAL TRICUSPID VALVE: NORMAL MITRAL VALVE: NORMAL PULMONIC VALVE: NORMAL AORTIC VALVE: NORMAL PERICARDIAL EFFUSION: NONE AORTIC ROOT: NORMAL LEFT VENTRICULAR WALL MOTION: NORMAL. DOPPLER/COLOR FLOW: NORMAL. COMMENTS: NORMAL 2D ECHOCARDIOGRAM WITH DOPPLER. NO WALL MOTION ABNORMALITIES. NO EFFUSION. TECHNOLOGIST: NERY [facility]
--- NOTE | 2019-02-14 21:57 | CON ---
Date of Consultation: 02/14/2019 Brief History Of Present Illness: Patient is a 68-year-old female with a history of hepati tis C, who came to hospital with abdominal pain and tenderness on the left flank area. The pain radi ated from the left flank around the hip area and in the groin area on the left side. There were no b ulges, no masses, and no tenderness in that area. The pain just had a significant radiation around t hat area. It was vague and crampy-type pain, it was not sharp, and there was no additional radiation beyond what was described. Past Medical History: Significant for hepatitis C, colitis, chronic back pain, anxiety, tobacco abus e, IBS. Past Surgical History: Hysterectomy and left breast lumpectomy. Family History: Father had heart disease and mother had heart disease. Social History: She is a half a pack to a pack per day cigarette user. She denies recreational drug use. Review of Systems: Ten-point review of systems other than HPI, denies. Allergies: CODEINE AND ASPIRIN. Home Medications: Xanax, Holden, thyroid tab, Dexilant, and Imitrex. Physical Examination: Vital Signs: At the time of my examination, temperature 97.5, blood pressure 183/83, pulse 87, respi ratory rate 16, pulse ox 96% on room air. General: She is awake, alert, and oriented. She is ambulatory in the room. Psychiatric: She is appropriate, conversive. HEENT: Normocephalic. Sclerae anicteric. Mucous membranes moist. Oropharynx clear. Neck: Supple. No JVD. Chest: Normal expansion and excursion. Cardiovascular: Regular rate and rhythm. Pulmonary: Clear to auscultation bilaterally. Abdomen: Soft, nontender, nondistended. No rebound. No guarding. No focal peritonitis. No hernia s appreciated. The inguinal area was palpated. There was no evidence of inguinal hernia or inguinal defects. No femoral hernias appreciated. Negative Rovsing sign. Negative psoas sign. Extremities: No clubbing, cyanosis, or edema. Skin: Warm and dry. Laboratory Data: Performed and showed a white blood cell count of 4.0, hemoglobin 14.7, hematocrit 4 3.7, platelet count is 90. Coags: PT was 12.9, INR 1.1, PTT 38.3. Chemistry showed a sodium of 143 , potassium 4.2, chloride 109, carbon dioxide 24, BUN 7, creatinine 0.7, glucose is 90. AST is 132, ALT 129, alkaline phosphatase is 202. Troponin is 0.036. Lipase was 214 on admission. Imaging: She had imaging performed, which included a CT dissection protocol which was officially fiordaliza d as no evidence of aortic aneurysm, dissection, or extensive atherosclerosis of the aorta; cirrhotic liver and splenomegaly; cholelithiasis with findings concerning for acute cholecystitis; peripancrea tic, periaortic, and retroperitoneal adenopathy. Specifically, the gallbladder was calcified. Galls tones were present. Pericholecystic inflammation with gallbladder wall thickening. Enhancement was noted. No ductal dilatation. Assessment And Plan: This is a 68-year-old female who comes in with a history of hepatitis C, cirrho sis, and no evidence of right upper quadrant abdominal pain. Her pain is predominantly in the left f lank area, and she does not have significant tenderness to this area. I find that she has no inguina l hernias or abdominal wall hernias that are discernible at this time and none were seen on imaging o f significant or other significant findings. With respect to her possibility of having cholecystitis , she has no clinical signs of cholecystitis with negative pain in the right upper quadrant. Right s jennifer of the abdomen is completely benign, and she has no tenderness on abdominal examination. Therefo re, I recommend continued medical management, serial exams, and advancing diet, and if tolerated, can be discharged. I recommend a GI consultation either as an inpatient/outpatient with close followup. I explained the risks, benefits, and alternatives of the above-stated plan. Patient agrees to proc eed as indicated. Thank you for this interesting consult. MELANIE/JESICA Voice ID: [id number] Report ID: [id number]
== END 2019-02-14 16:01 | disposition home or self-care (01) ==
LOC: ER 21:21 → 4TH 02-14 04:09 → INTOOBSV 02-14 04:09
PROVIDERS: ADMIT Hospitalist; ATTEND Family Medicine
DX: R10.819 Abdominal tenderness, unspecified site (principal); K74.60 Unspecified cirrhosis of liver; B18.2 Chronic viral hepatitis C; F17.210 Nicotine dependence, cigarettes, uncomplicated; Z86.19 Personal history of other infectious and parasitic diseases; Z79.82 Long term (current) use of aspirin
CPT/HCPCS: 93005; 93306; 87088; 85025 ×3; 87086; 80048; 36415; 83735; 85610 ×2; 80076; 85730; 81003; 84484 ×2; 83690; 80053 ×2; 83880; 71275; 74175; 71045; 96375; 96374; 99285; Q9967; J3010; J2543; J1170 ×2; J7030 ×2; J2405 ×2; G0378 ×2

== ENCOUNTER 2019-07-20 18:55 | Emergency (ER) | payer OTHER ==
[2019-07-20] MEDS ORDERED: METOCLOPRAMIDE 10 MG/2mL INJ ONE (21:24)
[2019-07-20] MEDS ORDERED: dexAMETHasone 10 MG/ML VIAL ONE (21:24)
[2019-07-20] MEDS ORDERED: NA CHLORIDE 0.9% 1,000 ML ONE (21:24)
[2019-07-20] MEDS ORDERED: ONDANSETRON 4 MG/2 ML VIAL ONE (21:24)
[2019-07-20 22:00] LABS: Absolute Lymphocytes (CBC) 1.7 K/uL (0.7-4.9); Basophils % 0.8 % (0-1.3); Hematocrit 44.9 % (36.0-45.0); Lymphocytes % 34.3 % (15.3-44.8); MPV 9.6 fL (7.6-11.3); RBC Red Blood Cell Count 4.74 M/uL (3.86-4.86)
[2019-07-20 22:09] LABS: Albumin 3.8 g/dL (3.4-5.0); Bilirubin Direct 0.1 mg/dL (0-0.2); Bilirubin Total 0.5 mg/dL (0.2-1.0); Potassium 4.6 mmol/L (3.5-5.1); Protein, Total 8.1 g/dL (6.4-8.2)
[2019-07-20] MEDS ORDERED: FENTANYL CITR 100 MCG/2 ML ONE (22:40)
[2019-07-20 22:54] LABS: Urine Blood NEGATIVE (NEG); Urine Glucose NEGATIVE (NEG); Urine Protein NEGATIVE (NEG); Urine Specific Gravity <1.005 (1.005-1.030); Urine pH 5.5 (5.0-7.0)
[2019-07-20 23:14] LABS: Urine Bacteria <20 /HPF (<20); Urine Culture Reflex Order NOT NEEDED; Urine RBC <5 /HPF (NONE SEEN)
--- NOTE | 2019-07-20 23:23 | EDPHYS ---
Physician Documentation [facility] Name: Roberta Owens Age: 69 yrs Sex: Female : 1950 Arrival Date: 07/20/2019 Time: 18:59 Bed 30 Private MD: ED Physician Kris Saucedo HPI: 07/20 21:10 This 69 yrs old Female presents to ER via Wheelchair with complaints of Back cp Pain, Hip Pain, Foot Pain. 21:10 The patient presents with pain that is acute, with no known mechanism of injury. The cp symptoms are located in the right low back. The pain radiates to the posterior aspect right lower leg and right foot. 21:10 Onset: The symptoms/episode began/occurred 2 day(s) ago. cp 21:10 Associated signs and symptoms: Pertinent positives: headache, weakness, right hip pain, cp Pertinent negatives: chest pain, constipation, dysuria, fever, incontinence, numbness, urinary retention. Severity of symptoms: in the emergency department the symptoms are unchanged, despite home interventions. Patient reports she is currently being treated for Hep C and concerned that pancreas and liver may be damaged. Historical: - Allergies: 19:24 Aspirin; ca1 19:24 Codeine; ca1 - PMHx: 19:24 Anxiety; Back pain; Colitis; GERD; Hepatitis C; ca1 - PSHx: 19:24 Hysterectomy; Lumpectomy; Tonsillectomy; ca1 - Immunization history:: Adult Immunizations up to date, Pneumococcal vaccine is not up to date, patient has never been vaccinated, Flu vaccine is up to date. - Social history:: Smoking status: Patient uses tobacco products, smokes one pack cigarettes per day. - Ebola Screening: : Patient negative for fever greater than or equal to 101.5 degrees Fahrenheit, and additional compatible Ebola Virus Disease symptoms Patient denies exposure to infectious person Patient denies travel to an Ebola-affected area in the 21 days before illness onset No symptoms or risks identified at this time. ROS: 21:15 Constitutional: Negative for body aches, chills, fever, poor PO intake. cp 21:15 Eyes: Negative for injury, pain, redness, and discharge. cp 21:15 Cardiovascular: Negative for chest pain, edema, palpitations. cp 21:15 Respiratory: Negative for cough, shortness of breath, wheezing. 21:15 Neck: Negative for pain with movement, pain at rest. cp 21:15 Abdomen/GI: Negative for abdominal pain, vomiting, diarrhea, constipation, anorexia, black/tarry stool, rectal bleeding. 21:15 Back: Positive for pain at rest, pain with movement, Negative for injury or acute deformity, decreased range of motion. 21:15 : Negative for urinary symptoms. 21:15 MS/extremity: Positive for pain, of the right foot and right leg and right hip, Negative for injury or acute deformity, decreased range of motion. 21:15 Skin: Negative for rash. 21:15 Neuro: Positive for headache, Negative for altered mental status, dizziness, weakness. 21:15 All other systems are negative. Exam: 21:25 Constitutional: The patient appears in no acute distress, alert, awake, cp non-diaphoretic, non-toxic, well developed, well nourished. 21:25 Head/Face: Normocephalic, atraumatic. cp 21:25 Eyes: Periorbital structures: appear normal, Conjunctiva: normal, no exudate, no injection, Sclera: no appreciated abnormality, Lids and lashes: appear normal, bilaterally. 21:25 ENT: External ear(s): are unremarkable, Nose: is normal, Mouth: Lips: moist, Oral mucosa: moist, Posterior pharynx: Airway: no evidence of obstruction, patent. 21:25 Neck: ROM/movement: is normal, is supple, without pain, no range of motions limitations. 21:25 Chest/axilla: Inspection: normal, Palpation: is normal, no crepitus, no tenderness. 21:25 Cardiovascular: Rate: normal, Rhythm: regular, Heart sounds: murmur, not appreciated, cp Edema: is not appreciated, JVD: is not appreciated. 21:25 Respiratory: the patient does not display signs of respiratory distress, Respirations: cp normal, no use of accessory muscles, no retractions, labored breathing, is not present, Breath sounds: are clear throughout, no decreased breath sounds, no stridor, no wheezing. 21:25 Abdomen/GI: Inspection: abdomen appears normal, Bowel sounds: active, all quadrants, Palpation: soft, in all quadrants, mild abdominal tenderness, in the left upper quadrant, rebound tenderness, is not appreciated, voluntary guarding, is not appreciated, involuntary guarding, is not appreciated. 21:25 Back: pain, that is moderate, of the right low back, ROM is painful, with all movement. 21:25 Skin: no rash present. 21:25 Neuro: Orientation: to person, place \T\ time. Mentation: is normal, Motor: moves all fours, strength is normal, Sensation: is normal, Gait: is steady, Deep tendon reflexes are 2+ (normal) in the right patellar, right Achilles, left patellar and left Achilles. Vital Signs: 19:24 BP 200 / 88; Pulse 97; Resp 17 S; Temp 97.8(O); Pulse Ox 98% on R/A; Weight 47.99 kg ca1 (M); Height 5 ft. 3 in. (160.02 cm) (R); Pain 9/10; 21:44 BP 150 / 80; Pulse 75; Resp 16 S; Pulse Ox 97% on R/A; ca1 23:29 BP 145 / 78; Pulse 85; Resp 18; Temp 98; Pulse Ox 100% on R/A; Pain 0/10; mg2 19:24 Body Mass Index 18.74 (47.99 kg, 160.02 cm) ca1 MDM: 20:53 Patient medically screened. cp 22:00 Differential diagnosis: Cholelithiasis chronic back pain, ruptured disc, cp Ureterolithiasis vertebral fracture, sciatica. 23:18 Data reviewed: vital signs, nurses notes, lab test result(s), radiologic studies, plain cp films. 23:18 Test interpretation: by ED physician or midlevel provider: plain radiologic studies, cp xrays of right hip negative for fracture. Counseling: I had a detailed discussion with the patient and/or guardian regarding: the historical points, exam findings, and any diagnostic results supporting the discharge/admit diagnosis, lab results, radiology results, the need for outpatient follow up, a family practitioner, a rn advanced, to return to the emergency department if symptoms worsen or persist or if there are any questions or concerns that arise at home. Response to treatment: the patient's symptoms have markedly improved after treatment, and as a result, I will discharge patient. 07/20 21:07 Order name: Basic Metabolic Panel; Complete Time: 22:35 cp 07/20 21:07 Order name: CBC with Diff; Complete Time: 22:35 cp 07/20 22:36 Interpretation: Normal except: HGB 15.2; PLT 112. cp 07/20 21:07 Order name: Creatinine for Radiology; Complete Time: 22:35 cp 07/20 21:07 Order name: Hepatic Function; Complete Time: 22:35 cp 07/20 22:36 Interpretation: Normal except: AST 75; ALT 85; ALK 189; GLOB 4.3; A/G 0.9. cp 07/20 21:07 Order name: Lipase; Complete Time: 22:35 cp 07/20 22:36 Interpretation: Within normal limits. cp 07/20 21:07 Order name: Urine Microscopic Only cp 07/20 21:07 Order name: XRAY Hip RIGHT 2 view cp 07/20 21:07 Order name: IV Saline Lock; Complete Time: 21:43 cp 07/20 22:50 Order name: Urine Dipstick--Ancillary (enter results) cm6 07/20 21:07 Order name: Labs collected and sent; Complete Time: 21:43 cp 07/20 21:07 Order name: Urine Dipstick-Ancillary (obtain specimen); Complete Time: 22:56 cp Administered Medications: 21:19 Drug: NS 0.9% 1000 ml Route: IV; Rate: 1 bolus; Site: right forearm; ca1 23:29 Follow up: Response: No adverse reaction; IV Status: Completed infusion; IV Intake: mg2 1000ml 21:20 Drug: Reglan 10 mg Route: IVP; Site: right forearm; ca1 23:28 Follow up: Response: No adverse reaction; Marked relief of symptoms mg2 21:25 Drug: Zofran 4 mg Route: IVP; Site: right forearm; ca1 23:28 Follow up: Response: No adverse reaction; Marked relief of symptoms mg2 21:30 Drug: Decadron - Dexamethasone 10 mg Route: IVP; Site: right forearm; ca1 23:28 Follow up: Response: No adverse reaction; Marked relief of symptoms mg2 23:01 Drug: fentaNYL (PF) 25 mcg Route: IVP; Site: right antecubital; mg2 23:28 Follow up: Response: No adverse reaction; Marked relief of symptoms mg2 Disposition: 07/21 07:01 Co-signature as Attending Physician, Kris Saucedo MD Available for consultation at ps1 all times. Signing chart for administrative purposes. Not an endorsement of care. . Disposition: 07/20/19 23:19 Discharged to Home. Impression: Sciatica, right side, Headache, Pain in right hip. - Condition is Stable. - Discharge Instructions: General Headache Without Cause, Sciatica, Hip Pain. - Prescriptions for Cyclobenzaprine 10 mg Oral Tablet - take 1 tablet by ORAL route every 8 hours As needed; 20 tablet. Tramadol 50 mg Oral Tablet - take 1 tablet by ORAL route every 8 hours as needed; 20 tablet. - Medication Reconciliation Form, Thank You Letter, Antibiotic Education, Prescription Opioid Use form. - Follow up: Private Physician; When: 2 - 3 days; Reason: Recheck today's complaints. - Problem is new. - Symptoms have improved. Addendum: 07/24/2019 10:58 Addendum: Spoke with patient concerning results of right hip xrays done 07-20-2019 that c p showed right femoral head AVN. Patient instructed on need for to f/u with orthopedics for further evaluation. Signatures: Dispatcher [employer] EDMS Melvin Turner PA PA cp Kris Saucedo MD MD ps1 Haresh Mckenzie RN RN mg2 Nallely Bello RN RN ca1 Corrections: (The following items were deleted from the chart) 07/20 23:20 23:19 07/20/2019 23:19 Discharged to Home. Impression: Sciatica, right side; Headache. cp Condition is Stable. Forms are Medication Reconciliation Form, Thank You Letter, Antibiotic Education, Prescription Opioid Use. Follow up: Private Physician; When: 2 - 3 days; Reason: Recheck today's complaints. Problem is new. Symptoms have improved. cp 23:30 23:20 07/20/2019 23:19 Discharged to Home. Impression: Sciatica, right side; Headache; mg2 Pain in right hip. Condition is Stable. Forms are Medication Reconciliation Form, Thank You Letter, Antibiotic Education, Prescription Opioid Use. Follow up: Private Physician; When: 2 - 3 days; Reason: Recheck today's complaints. Problem is new. Symptoms have improved. cp
--- NOTE | 2019-07-20 23:23 | ER ---
Nurse's Notes [facility] Name: Roberta Owens Age: 69 yrs Sex: Female : 1950 Arrival Date: 07/20/2019 Time: 18:59 Bed 30 Private MD: Diagnosis: Sciatica, right side;Headache;Pain in right hip Presentation: 07/20 19:18 Presenting complaint: Patient states: "I am on this medication: Epclusa ca1 (Sotobuvir/Velpatasvir) for Hep C and I know it makes you feel weak, but in the past couple days I just feel weaker. I have a pain on my R leg that feels very cold inside but is warm outside. It runs through my R hip then my lower back" Pt c/o nausea and headache. Denies fever. Transition of care: patient was not received from another setting of care. Onset of symptoms was July 20, 2019. Risk Assessment: Do you want to hurt yourself or someone else? Patient reports no desire to harm self or others. Initial Sepsis Screen: Does the patient meet any 2 criteria? No. Patient's initial sepsis screen is negative. Does the patient have a suspected source of infection? No. Patient's initial sepsis screen is negative. Care prior to arrival: None. 19:18 Method Of Arrival: Wheelchair ca1 19:18 Acuity: PHILIP 3 ca1 Historical: - Allergies: 19:24 Aspirin; ca1 19:24 Codeine; ca1 - PMHx: 19:24 Anxiety; Back pain; Colitis; GERD; Hepatitis C; ca1 - PSHx: 19:24 Hysterectomy; Lumpectomy; Tonsillectomy; ca1 - Immunization history:: Adult Immunizations up to date, Pneumococcal vaccine is not up to date, patient has never been vaccinated, Flu vaccine is up to date. - Social history:: Smoking status: Patient uses tobacco products, smokes one pack cigarettes per day. - Ebola Screening: : Patient negative for fever greater than or equal to 101.5 degrees Fahrenheit, and additional compatible Ebola Virus Disease symptoms Patient denies exposure to infectious person Patient denies travel to an Ebola-affected area in the 21 days before illness onset No symptoms or risks identified at this time. Screenin:25 Abuse screen: Denies threats or abuse. Denies injuries from another. Nutritional ca1 screening: No deficits noted. Tuberculosis screening: No symptoms or risk factors identified. Fall Risk Ambulatory Aid- Crutches/Cane/Walker (15 pts). Gait- Impaired (20 pts.). Assessment: 19:25 General: Appears in no apparent distress. comfortable, Behavior is calm, cooperative, ca1 appropriate for age. Pain: Complains of pain in right hip and right leg Pain radiates to low back area Pain currently is 9 out of 10 on a pain scale. Is intermittent. Neuro: Level of Consciousness is awake, alert, obeys commands, Oriented to person, place, time, situation, Appropriate for age. Cardiovascular: Heart tones S1 S2 present Capillary refill < 3 seconds Patient's skin is warm and dry. Respiratory: Airway is patent Respiratory effort is even, unlabored, Respiratory pattern is regular, symmetrical, Breath sounds are clear bilaterally. GI: Abdomen is flat, non-distended, Bowel sounds present X 4 quads. Abd is soft and non tender X 4 quads. : No deficits noted. No signs and/or symptoms were reported regarding the genitourinary system. EENT: No deficits noted. No signs and/or symptoms were reported regarding the EENT system. Derm: Skin is intact, is healthy with good turgor, Skin is pink, warm \\T\\ dry. Musculoskeletal: Circulation, motion, and sensation intact. Capillary refill < 3 seconds, Range of motion: intact in all extremities. 20:50 Reassessment: Patient appears in no apparent distress at this time. Patient and/or ca1 family updated on plan of care and expected duration. Pain level reassessed. Patient is alert, oriented x 3, equal unlabored respirations, skin warm/dry/pink. 21:44 Reassessment: Patient appears in no apparent distress at this time. Patient is alert, ca1 oriented x 3, equal unlabored respirations, skin warm/dry/pink. 22:25 Reassessment: Patient appears in no apparent distress at this time. Patient is alert, ca1 oriented x 3, equal unlabored respirations, skin warm/dry/pink. 23:29 Reassessment: Patient states feeling better. Patient states symptoms have improved. mg2 Vital Signs: 19:24 BP 200 / 88; Pulse 97; Resp 17 S; Temp 97.8(O); Pulse Ox 98% on R/A; Weight 47.99 kg ca1 (M); Height 5 ft. 3 in. (160.02 cm) (R); Pain 9/10; 21:44 BP 150 / 80; Pulse 75; Resp 16 S; Pulse Ox 97% on R/A; ca1 23:29 BP 145 / 78; Pulse 85; Resp 18; Temp 98; Pulse Ox 100% on R/A; Pain 0/10; mg2 19:24 Body Mass Index 18.74 (47.99 kg, 160.02 cm) ca1 ED Course: 18:59 Patient arrived in ED. cf2 19:04 Kris Saucedo MD is Attending Physician. ps1 19:18 Nallely Bello, KIAH is Primary Nurse. ca1 19:23 Triage completed. ca1 19:24 Arm band placed on right wrist. ca1 19:25 Patient has correct armband on for positive identification. Placed in gown. Bed in low ca1 position. Call light in reach. Side rails up X2. Pulse ox on. NIBP on. Warm blanket given. 19:25 No provider procedures requiring assistance completed. ca1 20:53 Melvin Turner PA is PHCP. cp 21:15 Inserted saline lock: 22 gauge in right forearm, using aseptic technique. ,using ca1 aseptic technique. by KIAH Philip Blood collected. 21:15 Initial lab(s) drawn, by me, sent to lab. ca1 21:44 XRAY Hip RIGHT 2 view In Process Unspecified. EDMS 23:30 IV discontinued, intact, bleeding controlled, No redness/swelling at site. Pressure mg2 dressing applied. Administered Medications: 21:19 Drug: NS 0.9% 1000 ml Route: IV; Rate: 1 bolus; Site: right forearm; ca1 23:29 Follow up: Response: No adverse reaction; IV Status: Completed infusion; IV Intake: mg2 1000ml 21:20 Drug: Reglan 10 mg Route: IVP; Site: right forearm; ca1 23:28 Follow up: Response: No adverse reaction; Marked relief of symptoms mg2 21:25 Drug: Zofran 4 mg Route: IVP; Site: right forearm; ca1 23:28 Follow up: Response: No adverse reaction; Marked relief of symptoms mg2 21:30 Drug: Decadron - Dexamethasone 10 mg Route: IVP; Site: right forearm; ca1 23:28 Follow up: Response: No adverse reaction; Marked relief of symptoms mg2 23:01 Drug: fentaNYL (PF) 25 mcg Route: IVP; Site: right antecubital; mg2 23:28 Follow up: Response: No adverse reaction; Marked relief of symptoms mg2 Intake: 23:29 IV: 1000ml; Total: 1000ml. mg2 Outcome: 23:19 Discharge ordered by . cp 23:30 Discharged to home ambulatory, with family. mg2 23:30 Condition: good 23:30 Discharge instructions given to patient, family, Instructed on discharge instructions, follow up and referral plans. medication usage, Demonstrated understanding of instructions, follow-up care, medications, Prescriptions given X 2. 23:30 Patient left the ED. mg2 Signatures: Dispatcher [employer] EDMS Melvin Turner PA PA cp Singer, Phillip, MD MD ps1 Haresh Mckenzie RN RN mg2 Nallely Bello RN RN [facility] Agus Fierro [facility]
[2019-07-20 23:39] VITALS: BP 145/78; TEMP 98; O2SAT 100
--- NOTE | 2019-07-21 11:28 | RAD REPORT ---
EXAM DESCRIPTION: RAD - Hip Right 2 View - 07/20/2019 9:44 pm CLINICAL HISTORY: PAIN COMPARISON: No comparisons FINDINGS: Sclerosis is seen along the femoral head articular surface compatible with avascular necro sis. No fracture evident. IMPRESSION: Right femoral head AVN.
== END 2019-07-20 23:30 | disposition home or self-care (01) ==
LOC: ER 18:55
DX: M54.31 Sciatica, right side (principal); M25.551 Pain in right hip; R51 Headache; Z88.6 Allergy status to analgesic agent; F17.210 Nicotine dependence, cigarettes, uncomplicated
CPT/HCPCS: 96361; 85025; 80048; 36415; 80076; 83690; 73502; 96375; 96374; 99284; J2765; J3010; J1100; J7030; J2405; 81003; 81015

== ENCOUNTER 2020-01-29 12:32 | Emergency (ER) | payer OTHER ==
[2020-01-29 13:29] LABS: Absolute Lymphocytes (CBC) 1.3 K/uL (0.7-4.9); Basophils % 0.8 % (0-1.3); Hematocrit 41.4 % (36.0-45.0); MPV 9.2 fL (7.6-11.3)
[2020-01-29 13:47] LABS: Bilirubin Total 0.6 mg/dL (0.2-1.0); Potassium 4.8 mmol/L (3.5-5.1); Protein, Total 8.2 g/dL (6.4-8.2)
--- NOTE | 2020-01-29 14:00 | RAD REPORT ---
EXAM DESCRIPTION: CT - Head C Spine Cap Haroon Patterson - 01/29/2020 1:33 pm CLINICAL HISTORY: fall, head injury, chest pain, hip pain, lower back pain COMPARISON: No comparisons TECHNIQUE: Axial [address] head images were obtained. Axial [address] cervical spine images were obtaine d with sagittal and coronal reconstruction images reviewed. During dynamic enhancement of 100mL non-i onic contrast, axial 5 mm images of the chest, abdomen and pelvis were obtained. Biphasic technique p erformed of the abdomen and pelvis. All CT scans are performed using dose optimization technique as appropriate and may include automated exposure control or mA/KV adjustment according to patient size. FINDINGS: No intracranial hemorrhage, mass or edema. No midline shift or abnormal fluid collection. Mastoid air cells and paranasal sinuses are clear. No skull fracture. C5-C7 fusion changes are present. The anterior hardware in the graft material normal in appearance. T his is a well-healed fusion. Advanced degenerative disc disease at C4-5. There is sclerotic endplate change and disc space narrowing. There is retrolisthesis of C4 relative to C5 with some chronic loss in height in the C4 body. Alignment is otherwise unremarkable. No other disc space narrowing. Endplat e spurring causes C4-5 bilateral bony foraminal stenosis. No paraspinal mass or hematoma seen. Centra l canal detail is inherently limited. CT chest shows no pneumothorax, pulmonary contusion or pleural fluid collection. No mediastinal hemat lashanda and the aorta and pulmonary arteries are unremarkable. No chest will mass or abnormal axillary fi nding. No displaced rib fracture or other significant bony finding. No clavicle fracture seen. The c lavicle near each AC joint falls outside of the field of view. No dislocation of either humeral head. CT abdomen and pelvis show no injury to solid abdominal viscera. Gallbladder is distended but not dil ated. Wall appears slightly thickened or edematous. No pericholecystic fluid. Punctate wall calcifica tions are identified. No biliary tree dilatation. No injury to the bowel. Patient has moderately larg e stool volume filling but not dilating the colon. No free air, free fluid or abnormal stranding. No urinary bladder abnormality. No vertebral body compression fracture. Degenerative disc disease present at L2-3. No acute pelvis or hip joint abnormality. Dense arterial tree calcifications are present. Significant aortic stenosis present at the distal aor ta and aortoiliac junction. No aneurysm. IMPRESSION: No hemorrhage or acute intracranial finding. Well-healed C5-C7 fusion. Patient has advanced degenerative disc disease at C4-5 with bilateral bony foraminal stenosis. No acute CT chest finding. Clavicles are not fully imaged near the AC joints. No acute traumatic abdominal or pelvic finding. Gallbladder gamez to appear slightly thickened or danie matous. An acute gallbladder process is unlikely given the history and mechanism of injury. Follow-up outpatient gallbladder ultrasound can be performed as warranted. Dense aortic calcifications are present without aneurysm. There is significant stenosis of the distal aorta and aortoiliac junction.
[2020-01-29] MEDS ORDERED: ONDANSETRON 4 MG/2 ML VIAL ONE (14:09)
[2020-01-29] MEDS ORDERED: MORPHINE 4 MG/ML SYR ONE (14:09)
--- NOTE | 2020-01-29 14:57 | RAD REPORT ---
EXAM DESCRIPTION: RAD - Knee Right 3 View - 01/29/2020 2:42 pm CLINICAL HISTORY: fall COMPARISON: No comparisons FINDINGS: No fracture, dislocation or periosteal reaction.Trace pleural effusion present. No joint s pace narrowing. No foreign body or other soft tissue abnormality. IMPRESSION: Trace pleural effusion with no acute bone finding. Clinical concerns for internal derangement or occult bony injury could be further assessed with MR im aging.
--- NOTE | 2020-01-29 14:57 | RAD REPORT ---
EXAM DESCRIPTION: RAD - Humerus Right - 01/29/2020 2:42 pm CLINICAL HISTORY: fall, right arm pain COMPARISON: No comparisons FINDINGS: No fracture is identified. There is no dislocation or periosteal reaction noted. No foreig n body or other soft tissue abnormality. IMPRESSION: Negative right humerus examination.
--- NOTE | 2020-01-29 14:59 | RAD REPORT ---
EXAM DESCRIPTION: RAD - Forearm Right - 01/29/2020 2:42 pm CLINICAL HISTORY: fall COMPARISON: No comparisonsNone. FINDINGS: No fracture is identified. There is no dislocation or periosteal reaction noted. No foreign body or other soft tissue abnormality. Carpal bones are only partially imaged. Carpal bone degenerative changes are present. IMPRESSION: Negative right forearm examination.
[2020-01-29] MEDS ORDERED: NA CHLORIDE 0.9% 500 ML ONE (15:37)
[2020-01-29] MEDS ORDERED: FENTANYL CITR 100 MCG/2 ML ONE (15:37)
--- NOTE | 2020-01-29 16:15 | ER ---
Nurse's Notes [facility] Name: Roberta Owens Age: 69 yrs Sex: Female : 1950 Arrival Date: 01/29/2020 Time: 12:34 Bed 17 Private MD: Diagnosis: Sprain of ligaments of cervical spine;Strain of muscle, fascia and tendon of lower back;Other internal derangements of right knee;Contusion of right upper arm;Contusion of right forearm Presentation: 01/28 12:37 Chief complaint: Patient states: trash lid hit chest and fell forward to the trash and ca1 fell together with the trash can to the concrete ground. Denies LOC. Denies hitting head. NOT on blood thinners. [place] numb post fall. C/O R knee, bilateral shoulders, back, R clavicular area. Coronavirus screen: Proceed with normal triage. Patient denies a cough. Patient denies shortness of breath or difficulty breathing. Patient denies measured and/or subjective temperature greater than 100.4F prior to today's visit. Patient denies travel on a cruise ship or to a country the [facility] currently lists as an affected area. Patient denies contact with known and/or suspected case of COVID-19. Ebola Screen: Patient negative for fever greater than or equal to 101.5 degrees Fahrenheit, and additional compatible Ebola Virus Disease symptoms Patient denies exposure to infectious person. Patient denies travel to an Ebola-affected area in the 21 days before illness onset. No symptoms or risks identified at this time. Initial Sepsis Screen: Does the patient meet any 2 criteria? No. Patient's initial sepsis screen is negative. Does the patient have a suspected source of infection? No. Patient's initial sepsis screen is negative. Risk Assessment: Do you want to hurt yourself or someone else? Patient reports no desire to harm self or others. Onset of symptoms was January 29, 2020. 12:37 Method Of Arrival: Wheelchair ca1 12:37 Acuity: PHILIP 3 ca1 12:49 Care prior to arrival: None. Mechanism of Injury: Fall from standing position. Trauma ph event details: Injury occurred in the [facility], Injury occurred: at home. Injury occurred: January 29, 2020. Trauma Activation: Not Applicable Physician: ED Physician; Name: ; Notified At: ; Arrived At: Physician: General Surgeon; Name: ; Notified At: ; Arrived At: Physician: Radiology; Name: ; Notified At: ; Arrived At: Physician: Respiratory; Name: ; Notified At: ; Arrived At: Physician: Lab; Name: ; Notified At: ; Arrived At: Historical: - Allergies: 12:43 Aspirin; ca1 12:43 Codeine; ca1 - PMHx: 12:43 Anxiety; Back pain; Colitis; GERD; Hepatitis C; ca1 - PSHx: 12:43 Hysterectomy; Lumpectomy; Tonsillectomy; ca1 - Immunization history:: Adult Immunizations up to date, Last tetanus immunization: unknown. - Social history:: Smoking status: Patient reports the use of cigarette tobacco products, smokes one-half pack cigarettes per day. Screenin:50 Abuse screen: Denies threats or abuse. Denies injuries from another. Nutritional ph screening: No deficits noted. Tuberculosis screening: No symptoms or risk factors identified. Fall Risk None identified. Primary Survey: 13:00 NO uncontrolled hemorrhage observed. A: The patient is alert. Airway: patent, No ph supplemental oxygen in use on arrival. Oral cavity: clear, Trachea midline. Breathing/Chest: Respiratory pattern: regular, Respiratory effort: spontaneous, unlabored, Chest inspection: symmetrical rise and fall of the chest. Circulation: Skin color: pink, Skin temperature: warm, dry. Disability Alert. Exposure/Environment: There is no evidence of uncontrolled external bleeding. 15:24 Reassessment Airway Airway Patent Breathing/Chest Respiratory pattern Regular ph Respiratory effort Spontaneous Unlabored Circulation Color [place] Temperature Warm Dry Disability Alert. Assessment: 13:00 General: Appears in no apparent distress. uncomfortable, slender, well groomed, ph Behavior is calm, cooperative, appropriate for age, Denies fever, feeling ill. Pain: Complains of pain in right arm and right low back and left low back, right knee. Neuro: Level of Consciousness is awake, alert, obeys commands, Oriented to person, place, time, situation. Cardiovascular: Capillary refill < 3 seconds in bilateral fingers Patient's skin is warm and dry. Respiratory: Airway is patent Respiratory effort is even, unlabored, Respiratory pattern is regular, symmetrical. Derm: Skin is intact, is healthy with good turgor, Skin is pink, warm \T\ dry. Musculoskeletal: Circulation, motion, and sensation intact. Range of motion: intact in all extremities. 14:30 Reassessment: Patient appears in no apparent distress at this time. Patient and/or ph family updated on plan of care and expected duration. Pain level reassessed. Patient is alert, oriented x 3, equal unlabored respirations, skin warm/dry/pink. 15:30 Reassessment: Patient appears in no apparent distress at this time. Patient and/or ph family updated on plan of care and expected duration. Pain level reassessed. Patient is alert, oriented x 3, equal unlabored respirations, skin warm/dry/pink. 16:47 Reassessment: Patient appears in no apparent distress at this time. Patient and/or ph family updated on plan of care and expected duration. Pain level reassessed. Patient is alert, oriented x 3, equal unlabored respirations, skin warm/dry/pink. Pt reports that pain has improved after IV Fentanyl, d/c home w/ family. Vital Signs: 12:37 BP 177 / 86; Pulse 85; Resp 15 S; Temp 98.2(TE); Pulse Ox 100% on R/A; Weight 49.44 kg ca1 (R); Height 5 ft. 3 in. (160.02 cm) (R); Pain 9/10; 15:12 BP 154 / 91; Pulse 81; Resp 18; Temp 98.0; Pulse Ox 99% on R/A; ph 16:30 BP 147 / 86; Pulse 76; Resp 18; Temp 98.6; Pulse Ox 99% on R/A; ph 12:37 Body Mass Index 19.31 (49.44 kg, 160.02 cm) ca1 [place] Coma Score: 15:12 Eye Response: spontaneous(4). Verbal Response: oriented(5). Motor Response: obeys ph commands(6). Total: 15. 16:30 Eye Response: spontaneous(4). Verbal Response: oriented(5). Motor Response: obeys ph commands(6). Total: 15. Trauma Score (Adult): 15:12 Eye Response: spontaneous(1); Verbal Response: oriented(1); Motor Response: obeys ph commands(2); Systolic BP: > 89 mm Hg(4); Respiratory Rate: 10 to 29 per min(4); Hima Score: 15; Trauma Score: 12 16:30 Eye Response: spontaneous(1); Verbal Response: oriented(1); Motor Response: obeys ph commands(2); Systolic BP: > 89 mm Hg(4); Respiratory Rate: 10 to 29 per min(4); Helena Score: 15; Trauma Score: 12 ED Course: 12:34 Patient arrived in ED. ag5 12:42 Triage completed. ca1 12:43 Arm band placed on right wrist. ca1 12:46 Luigi Agarwal PA is PHCP. jmm 12:47 Abel Yan MD is Attending Physician. [facility] 12:49 Tara Lee RN is Primary Nurse. ph 12:50 Patient has correct armband on for positive identification. Placed in gown. Bed in low ph position. Call light in reach. Side rails up X 1. Pulse ox on. NIBP on. Door closed. Noise minimized. Warm blanket given. 12:50 Patient maintains SpO2 saturation greater than 95% on room air. Thermoregulation: warm ph blanket given to patient. 13:33 CT Traumagram (Head C Spine CAP W Con) In Process Unspecified. EDMS 14:43 Knee Right 3 View XRAY In Process Unspecified. EDMS 14:43 Humerus Right XRAY In Process Unspecified. EDMS 14:43 Forearm Right XRAY In Process Unspecified. EDMS 16:52 No provider procedures requiring assistance completed. IV discontinued, intact, ph bleeding controlled, No redness/swelling at site. Pressure dressing applied. Administered Medications: 14:30 Drug: morphine 4 mg Route: IVP; Site: left antecubital; ph 16:54 Follow up: Response: No adverse reaction; Pain is unchanged, physician notified ph 14:30 Drug: Zofran (Ondansetron) 4 mg Route: IVP; Site: left antecubital; ph 16:54 Follow up: Response: No adverse reaction ph 15:40 Drug: NS 0.9% 500 ml Route: IV; Rate: bolus; Site: left antecubital; ph 16:53 Follow up: Response: No adverse reaction; IV Status: Completed infusion ph 15:41 Drug: fentaNYL (PF) 50 mcg Route: IVP; Site: left antecubital; ph 16:53 Follow up: Response: No adverse reaction; Pain is decreased ph Intake: 15:12 PO: 0ml; Total: 0ml. ph 16:30 PO: 0ml; Total: 0ml. ph Output: 15:12 Urine: 0ml; Total: 0ml. ph 16:30 Urine: 0ml; Total: 0ml. ph Outcome: 16:15 Discharge ordered by . avril 16:52 Discharged to home via wheelchair, with family. ph 16:52 Condition: good 16:52 Discharge instructions given to patient, Instructed on discharge instructions, follow up and referral plans. medication usage, Demonstrated understanding of instructions, follow-up care, medications, Prescriptions given X 1. 16:53 Patient's length of stay was not longer than 2 hours. ph 16:55 Patient left the ED. ph Signatures: Dispatcher [employer] EDMS Luigi Agarwal PA PA jmm Hall, Patricia, RN RN ph Nallely Bello RN RN ca1 Gabino, Ace ag5 Corrections: (The following items were deleted from the chart) 12:43 12:37 Acuity: PHILIP 4 ca1 ca1
--- NOTE | 2020-01-29 16:15 | EDPHYS ---
Physician Documentation [facility] Name: Roberta Owens Age: 69 yrs Sex: Female : 1950 Arrival Date: 01/29/2020 Time: 12:34 Bed 17 Private MD: ED Physician Abel Yan HPI: 01/28 13:03 This 69 yrs old Female presents to ER via Wheelchair with complaints of Fall jmm Injury. 13:03 Details of fall: The patient fell from an upright position. Onset: The symptoms/episode jmm began/occurred acutely, just prior to arrival. Associated injuries: The patient sustained neck injury, injury to the low back, injury to the chest. This is a 69 year old female with a history of hep c, colitis, GERD that presents to the ED with complaints of neck pain, chest pain, right arm pain, right knee pain, low back pain, and bilateral hip pain after falling into a large trash container. Denies LOC but states having transient generalized numbness. . Historical: - Allergies: 12:43 Aspirin; ca1 12:43 Codeine; ca1 - PMHx: 12:43 Anxiety; Back pain; Colitis; GERD; Hepatitis C; ca1 - PSHx: 12:43 Hysterectomy; Lumpectomy; Tonsillectomy; ca1 - Immunization history:: Adult Immunizations up to date, Last tetanus immunization: unknown. - Social history:: Smoking status: Patient reports the use of cigarette tobacco products, smokes one-half pack cigarettes per day. ROS: 13:03 Constitutional: Negative for fever, chills, and weight loss. jmm 13:03 Respiratory: Negative for shortness of breath, cough, wheezing, and pleuritic chest pain, Abdomen/GI: Negative for abdominal pain, nausea, vomiting, diarrhea, and constipation. 13:03 Cardiovascular: Positive for chest pain. 13:03 MS/extremity: Positive for injury or acute deformity, pain. 13:03 All other systems are negative. Exam: 13:03 Head/Face: atraumatic. Eyes: EOMI, no conjunctival erythema appreciated ENT: Moist jmm Mucus Membranes 13:03 Cardiovascular: Regular rate and rhythm. No edema appreciated Respiratory: Normal respirations, no respiratory distress appreciated Abdomen/GI: Non distended, soft 13:03 Constitutional: The patient appears alert, awake, anxious, uncomfortable. 13:03 Neck: ROM/movement: pain, that is moderate, with any movement. 13:03 Chest/axilla: Palpation: tenderness. 13:03 Back: pain, that is moderate, of the left low back and right low back. 13:03 Musculoskeletal/extremity: ROM: intact in all extremities. 13:03 Musculoskeletal/extremity: right anterior knee pain on palpation. 13:03 Skin: Appearance: Color: normal in color, ecchymosis, noted on the, right arm. 13:03 Neuro: Orientation: is normal, Mentation: is normal, Memory: is normal. 13:03 Psych: Behavior/mood is pleasant, cooperative. Vital Signs: 12:37 BP 177 / 86; Pulse 85; Resp 15 S; Temp 98.2(TE); Pulse Ox 100% on R/A; Weight 49.44 kg ca1 (R); Height 5 ft. 3 in. (160.02 cm) (R); Pain 9/10; 15:12 BP 154 / 91; Pulse 81; Resp 18; Temp 98.0; Pulse Ox 99% on R/A; ph 16:30 BP 147 / 86; Pulse 76; Resp 18; Temp 98.6; Pulse Ox 99% on R/A; ph 12:37 Body Mass Index 19.31 (49.44 kg, 160.02 cm) ca1 Kemp Coma Score: 15:12 Eye Response: spontaneous(4). Verbal Response: oriented(5). Motor Response: obeys ph commands(6). Total: 15. 16:30 Eye Response: spontaneous(4). Verbal Response: oriented(5). Motor Response: obeys ph commands(6). Total: 15. Trauma Score (Adult): 15:12 Eye Response: spontaneous(1); Verbal Response: oriented(1); Motor Response: obeys ph commands(2); Systolic BP: > 89 mm Hg(4); Respiratory Rate: 10 to 29 per min(4); Hima Score: 15; Trauma Score: 12 16:30 Eye Response: spontaneous(1); Verbal Response: oriented(1); Motor Response: obeys ph commands(2); Systolic BP: > 89 mm Hg(4); Respiratory Rate: 10 to 29 per min(4); Hima Score: 15; Trauma Score: 12 MDM: 13:03 Patient medically screened. [facility] 16:13 Data reviewed: vital signs, nurses notes. Counseling: I had a detailed discussion with avril the patient and/or guardian regarding: the historical points, exam findings, and any diagnostic results supporting the discharge/admit diagnosis, radiology results, the need for outpatient follow up, to return to the emergency department if symptoms worsen or persist or if there are any questions or concerns that arise at home. ED course: Pain decreased in the ED. patient is advised to follow up with pcp and otherwise given strict return precautions. patient understood and agrees with the plan of care. . 01/28 13:04 Order name: CBC with Diff; Complete Time: 13:44 [facility] 01/28 13:04 Order name: CMP; Complete Time: 13:53 [facility] 01/28 13:04 Order name: CT Traumagram (Head C Spine CAP W Con); Complete Time: 14:11 [facility] 01/28 13:05 Order name: Knee Right 3 View XRAY; Complete Time: 15:00 [facility] 01/28 13:05 Order name: Humerus Right XRAY; Complete Time: 15:00 [facility] 01/28 14:18 Order name: CREATININE WHOLE BLOOD; Complete Time: 14:47 [facility] 01/28 13:04 Order name: Saline Lock; Complete Time: 13:42 [facility] 01/28 13:05 Order name: Forearm Right XRAY; Complete Time: 15:00 [facility] 01/28 15:25 Order name: Knee Immobilizer; Complete Time: 15:40 ph Administered Medications: 14:30 Drug: morphine 4 mg Route: IVP; Site: left antecubital; ph 16:54 Follow up: Response: No adverse reaction; Pain is unchanged, physician notified ph 14:30 Drug: Zofran (Ondansetron) 4 mg Route: IVP; Site: left antecubital; ph 16:54 Follow up: Response: No adverse reaction ph 15:40 Drug: NS 0.9% 500 ml Route: IV; Rate: bolus; Site: left antecubital; ph 16:53 Follow up: Response: No adverse reaction; IV Status: Completed infusion ph 15:41 Drug: fentaNYL (PF) 50 mcg Route: IVP; Site: left antecubital; ph 16:53 Follow up: Response: No adverse reaction; Pain is decreased ph Disposition: 18:00 Co-signature as Attending Physician, Abel Yan MD. rn Disposition: 01/29/20 16:15 Discharged to Home. Impression: Sprain of ligaments of cervical spine, Strain of muscle, fascia and tendon of lower back, Other internal derangements of right knee, Contusion of right upper arm, Contusion of right forearm. - Condition is Stable. - Discharge Instructions: Back Pain, Adult, Knee Pain, Cervical Sprain. - Prescriptions for orphenadrine citrate 100 mg Oral Tablet Sustained Release - take 1 tablet by ORAL route 2 times per day As needed; 20 tablet. - Medication Reconciliation Form, Thank You Letter, Antibiotic Education, Prescription Opioid Use form. - Follow up: Private Physician; When: 2 - 3 days; Reason: Recheck today's complaints, Continuance of care, Re-evaluation by your physician. Signatures: Dispatcher [employer] EDMS Luigi Agarwal PA PA jmm Nieto, Roman, MD MD rn Hall, Patricia, RN RN Nallely Bello RN RN [facility] Corrections: (The following items were deleted from the chart) 16:55 16:15 01/29/2020 16:15 Discharged to Home. Impression: Sprain of ligaments of cervical ph spine; Strain of muscle, fascia and tendon of lower back; Other internal derangements of right knee; Contusion of right upper arm; Contusion of right forearm. Condition is Stable. Forms are Medication Reconciliation Form, Thank You Letter, Antibiotic Education, Prescription Opioid Use. Follow up: Private Physician; When: 2 - 3 days; Reason: Recheck today's complaints, Continuance of care, Re-evaluation by your physician. [facility]
[2020-01-29 17:59] VITALS: O2SAT 99
[2020-01-29 18:02] VITALS: BP 147/86; TEMP 98.6
== END 2020-01-29 16:55 | disposition home or self-care (01) ==
LOC: ER 12:32
DX: S13.4XXA Sprain of ligaments of cervical spine, initial encounter (principal); S39.012A Strain of muscle, fascia and tendon of lower back, initial encounter; M23.8X1 Other internal derangements of right knee; S40.021A Contusion of right upper arm, initial encounter; S50.11XA Contusion of right forearm, initial encounter; W17.89XA Other fall from one level to another, initial encounter; Y93.9 Activity, unspecified; Y92.9 Unspecified place or not applicable; Z72.0 Tobacco use; Z88.5 Allergy status to narcotic agent; Z88.6 Allergy status to analgesic agent
CPT/HCPCS: 96361; 85025; 36415; 82565; 80053; 70450; 72125; 71260; 74177; 73090; 73060; 73562; 96375; 96374; 99284; Q9967; J3010; J7040; J2405

== ENCOUNTER 2021-02-22 20:31 | Emergency (ER) | payer OTHER ==
--- OUTSIDE RECORDS SUMMARY | 2021-02-22 20:33 | XMS REPORT | Continuity of Care Document ---
:1950 Author Organization [facility] t Address [address] [place] [address] Care Team Providers Name Role Phone Alexandria Terry Attending Clinician Problems This patient has no known problems. Allergies, Adverse Reactions, Alerts This patient has no known allergies or adverse reactions. Medications This patient has no known medications. Procedures This patient has no known procedures. Encounters Start End Encounter Admission Attending Care Care Encounter Source Date/Time Date/Time Type Type Clinicians Facility Department ID 2020-07-07 2020-07-07 Office HARSHA Pickens [id number] 13:08:34 13:23:34 Visit [facility] [id number] Surgical [id number] Specialti [id number] [address] [place] Results This patient has no known results.
--- NOTE | 2021-02-22 21:15 | ER ---
Nurse's Notes [facility] Name: Roberta Owens Age: 71 yrs Sex: Female : 1950 Arrival Date: 02/22/2021 Time: 20:31 Bed Waiting Private MD: Diagnosis: ED Course: 02/22 20:31 Patient arrived in ED. es 21:14 Patient's name was called from ER lobby. No response. Unable to locate patient. Will bb disposition as left without being seen by a provider. Administered Medications: No medications were administered Outcome: 21:15 Patient left the ED. bb Signatures: Ekaterina Galicia Brenda RN RN bb
== END 2021-02-22 21:15 | disposition left against medical advice (07) ==
LOC: ER 20:31
DX: Z02.9 Encounter for administrative examinations, unspecified (principal)

== ENCOUNTER 2021-09-19 16:27 | Emergency (ER) | payer OTHER ==
--- OUTSIDE RECORDS SUMMARY | 2021-09-19 16:29 | XMS REPORT | Continuity of Care Document ---
:1950 Author Organization [facility] t Address [address] [place] [address] Care Team Providers Name Role Phone JAZMYNE Attending Clinician Unavailable Alexandria Terry Attending Clinician Alexandria SHIRLEY Attending Clinician Unavailable Payers Payer Name Policy Type Policy Number Effective Date Expiration Date Alexandria khan MEDICARE PART A [id number] 2008 \T\ B 00:00:00 Problems Condition Condition Condition Status Onset Resolution Last Treating Co mments Source Name Details Category Date Date Treatment Clinician Date Abdominal Abdominal Disease Active Uni vers pain, pain, 17 ity [place] generalize [place] [facility] Dyspnea Dyspnea Disease Active Overview: Univ ers and and 10-31 ICD10 ity of respirator respirator 00:00: Diagnosis [place] y y 00 Term 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 abnormalit 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 Utility Allergies, Adverse Reactions, Alerts Allergy Allergy Status Severity Reaction(s) Onset Inactive Treating Comm ents Source Name Type Date Date Clinician Aspirin Propensi Active Nausea Only Un beau ty to 417 ity of adverse 00:00: [place] reaction 00 Medical s Branch Codeine Propensi Active Itching Univer s ty to 417 ity of adverse 00:00: [place] reaction 00 Medical s Branch ASPIRIN DRUG Active NAUSEA ONLY Univ ers INGREDI 4-17 ity of 00:00: [place] 00 Medical Branch CODEINE DRUG Active ITCHING Univers INGREDI 4-17 ity of 00:00: [place] 00 Medical Branch Social History Social Habit Start Date Stop Date Quantity Comments Source Sex Assigned At [facility] y of [place] Medical Branch Exposure to Not sure [facility] SARS-CoV-2 (event) Medica l Branch Cigarettes smoked 2020-07-07 2020-07-07 Univers [facility] current (pack per 00:00:00 00:00:00 Medical Branch day) - Reported Tobacco use and 2020-07-07 2020-07-07 Never used Universit [facility] exposure 00:00:00 00:00:00 Medical Branch Smoking Status Start Date Stop Date Source Current every day smoker 2020-07-07 00[facility]00:00 [facility] Medications Ordered Filled Start Stop Current Ordering Indication Dosage Frequency Signature Comments Components Source Medication Medication Date Date Medication? Clinician (SIG) Name Name meloxicam 2019-07 Yes [id number] 7.5mg Take 1 Univers 7.5 mg 2-22 [id number] tablet by ity of tablet 00:00: mouth [place] 00 daily. Medical Branch meloxicam 2019-07 Yes [id number] 7.5mg Take 1 Univers 7.5 mg 2-22 [id number] tablet by ity of tablet 00:00: mouth [place] 00 daily. Medical Branch METOCLOPRAM Yes Take one Un beau MATT 10 MG 6-26 tablet by ity o f ORAL TAB 00:00: mouth [place] 00 every 6 Medical hours as Branch needed for nausea/vom iting METOCLOPRAM Yes Take one Un beau MATT 10 MG 6-26 tablet by ity o f ORAL TAB 00:00: mouth [place] 00 every 6 Medical hours as Branch needed for nausea/vom iting XANAX 1 MG Yes None Univers ORAL TAB 6-25 Entered ity of 22:58: [address] FOLIC ACID Yes None Univers 1 MG ORAL 6-25 Entered ity of TAB 22:58: [address] VICODIN ES Yes None Univers 7.5-750 MG 6-25 Entered ity of ORAL TAB 22:58: [address] XANAX 1 MG Yes None Univers ORAL TAB 6-25 Entered ity of 22:58: [address] FOLIC ACID Yes None Univers 1 MG ORAL 6-25 Entered ity of TAB 22:58: [address] VICODIN ES Yes None Univers 7.5-750 MG 6-25 Entered ity of ORAL TAB 22:58: [address] Vital Signs Vital Name Observation Time Observation Value Comments Source Systolic blood 2020-07-07 19:17:00 163 mm[Hg] Univer sity of [place] pressure [facility] Branch Diastolic blood 2020-07-07 19:17:00 80 mm[Hg] Unive rsity of [facility] Heart rate 2020-07-07 19:16:00 93 /min Universi ty of [facility] Body height 2020-07-07 19:16:00 160 cm Universi ty [facility] Body weight 2020-07-07 19:16:00 52.345 kg Universi ty [facility] BMI 2020-07-07 19:16:00 20.44 kg/m2 Universi ty [facility] Systolic blood 2020-07-07 19:17:00 163 mm[Hg] Univer sity [facility] Diastolic blood 2020-07-07 19:17:00 80 [facility]Hg[facility] 2020-07-07 19:16:00 93 /min Universi ty [facility] Body height 2020-07-07 19:16:00 160 cm Universi ty [facility] Body weight 2020-07-07 19:16:00 52.345 kg Universi ty [facility] BMI 2020-07-07 19:16:00 20.44 kg/m2 Universi ty [facility] Procedures This patient has no known procedures. Encounters Start End Encounter Admission Attending Care Care Encounter Source Date/Time Date/Time Type Type Clinicians Facility Department ID 2021-05-05 2021-05-05 Outpatient Angely SAMANO [facility] [id number] Univers 14:20:00 14:20:00 MICHELE [id number] nicoy o f [facility] 2021-05-05 2021-05-05 Outpatient R JAZMYNE [facility] [id number] Univers 14:20:00 14:20:00 MICHELE carson o f [facility] 2020-07-07 2020-07-07 Office Celio TNQUAN [id number] Univers 13:08:34 13:23:34 Visit [facility] [id number] it y of Surgical [id number] Aristides as Specialti [id number] Ut dical [address] [place] 2020-07-07 2020-07-07 Office Celio [facility] [id number] 13:08:34 13:23:34 Visit [facility] [id number] Surgical [id number] Specialti [id number] es [address] 2020-07-07 2020-07-07 [facility] [id number] Univers 13:00:00 13:00:00 MIKKI [facility] Results This patient has no known results.
[2021-09-19] MEDS ORDERED: FENTANYL CITR 100 MCG/2 ML ONE ×2 (17:42→18:49)
[2021-09-19] MEDS ORDERED: ONDANSETRON 4 MG/2 ML VIAL ONE (17:42)
[2021-09-19 17:43] LABS: Absolute Lymphocytes (CBC) 1.6 K/uL (0.7-4.9); Hematocrit 38.6 % (36.0-45.0); Lymphocytes % 38.8 % (15.3-44.8); MPV 8.7 fL (7.6-11.3)
[2021-09-19 17:52] LABS: Urine Blood Trace-intact (Negative); Urine Glucose Negative (Negative); Urine Protein Negative (Negative); Urine Specific Gravity <=1.005 (1.005-1.030)
[2021-09-19 18:06] LABS: ALT/SGPT 33 U/L (12-78); AST/SGOT 29 U/L (15-37); Alkaline Phosphatase 154 U/L (45-117); BUN Blood Urea Nitrogen 7 mg/dL (7-18); Bicarbonate 27 mmol/L (21-32); Bilirubin Total 0.4 mg/dL (0.2-1.0); Glucose Level 108 mg/dL (74-106); Lipase 113 U/L (73-393); Potassium 3.5 mmol/L (3.5-5.1); Protein, Total 7.8 g/dL (6.4-8.2); Sodium Level 139 mmol/L (136-145)
[2021-09-19 18:08] LABS: Bilirubin Direct < 0.1 mg/dL (0-0.2)
--- NOTE | 2021-09-19 18:18 | RAD REPORT ---
EXAM DESCRIPTION: CT - Abdomen Pelvis W Contrast - 09/19/2021 6:07 pm CLINICAL HISTORY: ABD PAIN COMPARISON: CT 07/03/2020 and 12/03/2017 TECHNIQUE: Biphasic, helical CT imaging of the abdomen and pelvis was performed following 100 ml non -ionic IV contrast. No oral contrast administered. All CT scans are performed using dose optimization technique as appropriate and may include automated exposure control or mA/KV adjustment according to patient size. FINDINGS: No suspicious findings in the lung bases. Liver capsule nodularity shows progression from 2019 comparison. No suspicious liver lesion identifie d. No portal vein thrombus is seen. Spleen is upper normal and stable in size. No pancreatic or perip ancreatic acute finding. Gallbladder is distended. Punctate gallstones or wall calcifications present in the fundus unchanged from prior imaging. No wall thickening or edema. Intrahepatic and extrahepatic biliary tree mild dil atation noted. Duct stones can be occult. No pancreatic or duodenal mass. Biliary tree dilatation has been present on the prior studies. Correlation is needed with any clinical or laboratory findings of biliary obstruction. Symmetric renal function is seen with no hydronephrosis or suspicious renal mass. No pyelonephritis o r acute parenchymal process. No bladder abnormalities. No adrenal abnormalities. Uterus is absent. Ov jesus alberto are atrophic. No adnexal abnormality. Stomach is mostly decompressed. Acute gastric wall finding is doubtful. No dilation of small bowel or colon. Patient has prominent sigmoid diverticulosis without acute diverticulitis. No appendicitis fi ndings. No free air, free fluid or inflammatory stranding. No hernia, mass or bulky lymphadenopathy. Disc and bone degenerative changes are present. Patient has dense arterial tree calcifications with distal aorta and iliac artery significant stenose s. IMPRESSION: Contrast enhanced CT abdomen and pelvis showing no emergent finding. Prominent diverticulosis without diverticulitis or acute GI finding. Distended gallbladder without wall thickening or edema. Biliary tree dilatation is present not grossl y different from comparison. Correlation is needed with any clinical or laboratory findings of biliar y obstruction. Progressive fibrotic changes to the liver without a focal liver lesion identifiable. Dense arterial tree calcifications with significant distal aorta and iliac artery stenoses.
--- NOTE | 2021-09-19 20:53 | RAD REPORT ---
EXAM DESCRIPTION: US - Abdomen Exam Limited - 09/19/2021 7:42 pm CLINICAL HISTORY: ABD PAIN COMPARISON: Abdomen Pelvis W Contrast dated 09/19/2021 FINDINGS: Gallbladder is well filled but not dilated. There is no wall thickening or pericholecystic fluid. No gallstones or measurable quantity of sludge. There are several echogenic foci in the wall of the gallbladder that have posterior acoustic enhancement or ring down artifact. This adenomyomatos is finding is not of acute clinical significance. No common duct stone or biliary tree dilatation identified. IMPRESSION: No gallstones, measurable sludge or other acute gallbladder finding. No duct stone or biliary tree abnormality identified.
--- NOTE | 2021-09-19 22:06 | EDPHYS ---
Physician Documentation [facility] Name: Roberta Owens Age: 71 yrs Sex: Female : 1950 Arrival Date: 09/19/2021 Time: 16:28 Bed 20 Private MD: ED Physician Abel Yan HPI: 09/19 17:20 This 71 yrs old Female presents to ER via Wheelchair with complaints of Abdominal pm1 Swelling, Constipation. 17:20 The patient presents with Constipation and abdominal swelling. Onset: The pm1 symptoms/episode began/occurred and became worse 3 day(s) ago, Patient reports constipation started since she took the medications to cure her hepatitis C which was many years ago. The symptoms do not radiate. Associated signs and symptoms: Pertinent negatives: nausea, vomiting, and diarrhea, chest pain, shortness of breath. The symptoms are described as burning, crampy. Modifying factors: The symptoms are alleviated by nothing, the symptoms are aggravated by nothing. Severity of pain: in the emergency department the pain is actually worse. The patient has not experienced similar symptoms in the past. The patient has not recently seen a physician. Historical: - Allergies: 16:59 Aspirin; vg1 16:59 Codeine; vg1 - PMHx: 16:59 Anxiety; Back pain; Colitis; GERD; Hepatitis C; vg1 - Immunization history:: Client reports receiving the 2nd dose of the Covid vaccine. - Social history:: Smoking status: Patient reports the use of cigarette tobacco products, smokes one pack cigarettes per day. ROS: 17:20 Constitutional: Negative for fever, chills, and weight loss, Cardiovascular: Negative pm1 for chest pain, palpitations, and edema, Respiratory: Negative for shortness of breath, cough, wheezing, and pleuritic chest pain. 17:20 Back: Negative for injury and pain, MS/Extremity: Negative for injury and deformity, Skin: Negative for injury, rash, and discoloration, Neuro: Negative for headache, weakness, numbness, tingling, and seizure. 17:20 Abdomen/GI: Positive for abdominal pain, constipation, abdominal distension, Negative for nausea, vomiting, and diarrhea. 17:20 All other systems are negative. Exam: 17:20 Constitutional: This is a well developed, well nourished patient who is awake, alert, pm1 and in no acute distress. Head/Face: Normocephalic, atraumatic. 17:20 Back: No spinal tenderness. No costovertebral tenderness. Full range of motion. Skin: Warm, dry with normal turgor. Normal color with no rashes, no lesions, and no evidence of cellulitis. MS/ Extremity: Pulses equal, no cyanosis. Neurovascular intact. Full, normal range of motion. 17:20 Cardiovascular: Exam negative for acute changes, Rate: Rhythm: regular, Pulses: no pulse deficits are appreciated. 17:20 Respiratory: Exam negative for acute changes, respiratory distress, shortness of breath, Breath sounds: are clear throughout. 17:20 Abdomen/GI: Bowel sounds: normal, in all quadrants, Palpation: abdomen is soft and non-tender, in all quadrants. 17:20 Neuro: Exam negative for acute changes, Orientation: is normal, Mentation: is normal, Motor: is normal, moves all fours. Vital Signs: 16:51 BP 167 / 104; Pulse 100; Resp 18; Temp 97.7; Pulse Ox 100% ; Weight 54.43 kg; Height 5 vg1 ft. 2 in. (157.48 cm); Pain 10/10; 22:43 Pulse 78 MON; Resp 19 S; Temp 98.0; Pulse Ox 94% on R/A; sv1 16:51 Body Mass Index 21.95 (54.43 kg, 157.48 cm) vg1 MDM: 17:18 Patient medically screened. pm1 20:54 Data reviewed: vital signs. Data interpreted: Pulse oximetry: on room air is 100 %. pm1 Interpretation: normal. Counseling: I had a detailed discussion with the patient and/or guardian regarding: the historical points, exam findings, and any diagnostic results supporting the discharge/admit diagnosis, lab results, radiology results, the need for outpatient follow up, a permit agent, to return to the emergency department if symptoms worsen or persist or if there are any questions or concerns that arise at home. 09/19 17:20 Order name: Basic Metabolic Panel; Complete Time: 18:36 pm1 09/19 17:20 Order name: CBC with Diff; Complete Time: 17:54 pm1 09/19 17:20 Order name: Hepatic Function; Complete Time: 18:36 pm1 09/19 17:20 Order name: Lipase; Complete Time: 18:36 pm1 09/19 17:51 Order name: Urine Dipstick-Ancillary; Complete Time: 17:54 EDMS 09/19 21:24 Order name: CREATININE WHOLE BLOOD; Complete Time: 21:37 EDMS 09/19 17:20 Order name: IV Saline Lock; Complete Time: 18:53 pm1 09/19 17:20 Order name: Labs collected and sent; Complete Time: 18:53 pm1 09/19 17:20 Order name: Urine Dipstick-Ancillary (obtain specimen); Complete Time: 17:45 pm1 09/19 17:20 Order name: CT Abd/Pelvis - IV Contrast Only; Complete Time: 18:36 pm1 09/19 19:01 Order name: US Abdomen Limited; Complete Time: 20:54 pm1 Administered Medications: 17:44 Drug: Zofran (Ondansetron) 4 mg Route: IVP; Site: right forearm; jh6 17:45 Drug: fentaNYL (PF) 25 mcg Route: IVP; Site: right forearm; jh6 18:53 Drug: fentaNYL (PF) 25 mcg Route: IVP; Site: right forearm; jl7 Disposition Summary: 09/19/21 22:02 Discharge Ordered Location: Home pm1 Problem: new pm1 Symptoms: have improved pm1 Condition: Stable pm1 Diagnosis - Constipation, unspecified pm1 - Abdominal pain, unspecified pm1 Followup: pm1 - With: Emergency Department - When: As needed - Reason: Worsening of condition Followup: pm1 - With: Private Physician - When: 2 - 3 days - Reason: Recheck today's complaints, Continuance of care, Re-evaluation by your physician Discharge Instructions: - Discharge Summary Sheet pm1 - Abdominal Pain, Adult pm1 - Constipation, Adult pm1 - High-Fiber Diet pm1 Forms: - Medication Reconciliation Form pm1 - Thank You Letter pm1 - Antibiotic Education pm1 - Prescription Opioid Use pm1 Prescriptions: - dicyclomine 20 mg Oral tablet - take 1 tablet by ORAL route every 6 hours As needed; 20 tablet; Refills: 0, pm1 Product Selection Permitted Addendum: 09/21/2021 08:14 Co-signature as Attending Physician, Abel Yan MD I agree with the assessment and r n plan of care. Attestation: The patient's history, exam findings, diagnostics, and a summary of any interventions or procedures was reviewed in detail with Ryan Michaels NP. Signatures: Dispatcher [employer] Abel Oakes MD MD rn Marinas, Patrick, NP [employer] pm1 Nicole Bhatia RN RN jl7 Michelle Pfeiffer RN RN vg1 Prachi Cordon RN RN jh6
--- NOTE | 2021-09-19 22:06 | ER ---
Nurse's Notes [facility] Name: Roberta Owens Age: 71 yrs Sex: Female : 1950 Arrival Date: 09/19/2021 Time: 16:28 Bed 20 Private MD: Diagnosis: Constipation, unspecified;Abdominal pain, unspecified Presentation: 09/19 16:51 Chief complaint: Patient states: Epigastric pain x 3 days, states sharp/burning pain. vg1 States nausea, denies V/D. states took a hydrocodone about less than an hour ago. Coronavirus screen: Vaccine status: Patient reports receiving the 2nd dose of the covid vaccine. Client denies travel out of the [place] in the last 14 days. Ebola Screen: Patient negative for fever greater than or equal to 101.5 degrees Fahrenheit, and additional compatible Ebola Virus Disease symptoms. Initial Sepsis Screen: Does the patient meet any 2 criteria? No. Patient's initial sepsis screen is negative. Does the patient have a suspected source of infection? No. Patient's initial sepsis screen is negative. Risk Assessment: Do you want to hurt yourself or someone else? Patient reports no desire to harm self or others. Onset of symptoms was September 16, 2021. 16:51 Method Of Arrival: Wheelchair vg1 16:51 Acuity: PHILIP 3 vg1 Triage Assessment: 16:59 General: Appears in no apparent distress. uncomfortable, Behavior is calm, cooperative. vg1 Pain: Complains of pain in abdomen. GI: Abdomen is round non-distended, Reports constipation, nausea. Historical: - Allergies: 16:59 Aspirin; vg1 16:59 Codeine; vg1 - PMHx: 16:59 Anxiety; Back pain; Colitis; GERD; Hepatitis C; vg1 - Immunization history:: Client reports receiving the 2nd dose of the Covid vaccine. - Social history:: Smoking status: Patient reports the use of cigarette tobacco products, smokes one pack cigarettes per day. Screenin:43 Abuse screen: Denies threats or abuse. Nutritional screening: No deficits noted. sv1 Tuberculosis screening: No symptoms or risk factors identified. Fall Risk None identified. Vital Signs: 16:51 BP 167 / 104; Pulse 100; Resp 18; Temp 97.7; Pulse Ox 100% ; Weight 54.43 kg; Height 5 vg1 ft. 2 in. (157.48 cm); Pain 10/10; 22:43 Pulse 78 MON; Resp 19 S; Temp 98.0; Pulse Ox 94% on R/A; sv1 16:51 Body Mass Index 21.95 (54.43 kg, 157.48 cm) vg1 ED Course: 16:28 Patient arrived in ED. as 16:59 Triage completed. vg1 16:59 Arm band placed on. vg1 17:04 [facility] pm1 17:04 Abel Yan MD is Attending Physician. pm1 17:25 Inserted saline lock: 22 gauge in right forearm, using aseptic technique. Blood 6 collected. 17:27 Prachi Cordon RN is Primary Nurse. jh6 18:07 CT Abd/Pelvis - IV Contrast Only In Process Unspecified. EDMS 19:21 Primary Nurse role handed off by Prachi Cordon RN 19:42 US Abdomen Limited In Process Unspecified. EDMS 22:37 Osmany Ware, KIAH is Primary Nurse. sv1 22:43 Patient has correct armband on for positive identification. Placed in gown. Bed in low sv1 position. Call light in reach. Side rails up X2. Adult w/ patient. 22:43 No provider procedures requiring assistance completed. IV discontinued. sv1 Administered Medications: 17:44 Drug: Zofran (Ondansetron) 4 mg Route: IVP; Site: right forearm; jh6 17:45 Drug: fentaNYL (PF) 25 mcg Route: IVP; Site: right forearm; jh6 18:53 Drug: fentaNYL (PF) 25 mcg Route: IVP; Site: right forearm; jl7 Outcome: 22:02 Discharge ordered by . pm1 22:43 Discharged to home ambulatory, with family. sv1 22:43 Condition: improved 22:43 Discharge instructions given to patient, family. 22:48 Patient left the ED. sv1 Signatures: Dispatcher [employer] EDMS Jocelyn Armendariz Patrick, [employer] MANAGER pm1 Nicole Bhatia RN RN jl7 Nirali Kendrick Victoria, RN RN 1 Prachi Cordon RN RN 6 Villicano, Osmany, RN RN sv1
[2021-09-19 22:55] VITALS: BP 167/104
[2021-09-19 22:56] VITALS: TEMP 98; O2SAT 94
== END 2021-09-19 22:48 | disposition home or self-care (01) ==
LOC: ER 16:27
DX: K59.00 Constipation, unspecified (principal); F17.210 Nicotine dependence, cigarettes, uncomplicated; Z88.5 Allergy status to narcotic agent; Z88.6 Allergy status to analgesic agent
CPT/HCPCS: 85025; 80048; 36415; 82565; 80076; 81003; 83690; 74177; 76705; 96375; 96374; 99284; Q9967; J3010 ×2; J2405

== ENCOUNTER 2022-11-15 14:48 | Emergency (ER) | payer OTHER ==
--- OUTSIDE RECORDS SUMMARY | 2022-11-15 15:36 | XMS REPORT | Continuity of Care Document ---
:1950 Author Organization [facility] t Address [address] [place] [address] [address] [place] [address] Care Team Providers Name Role Phone JAZMYNEMICHELE Attending Clinician Unavailable Mikki Terry Attending Clinician MIKKI PICKENS Attending Clinician Unavailable Payers Payer Name Policy Type Policy Number Effective Date Expiration Date bill MEDICARE PART A [id number] 2008 \T\ B 00:00:00 Problems Condition Condition Condition Status Onset Resolution Last Treating Co mments Source Name Details Category Date Date Treatment Clinician Date Abdominal Abdominal Disease Active Uni vers pain, pain, 4-17 [place] [facility] Dyspnea Dyspnea Disease Active Overview: Univ ers and and 10-31 ICD10 ity of respirator respirator 00:00: Diagnosis [place] y y 00 Term Medical abnormalit abnormalit Traveling Buyer Branch y y Utility Allergies, Adverse Reactions, Alerts Allergy Allergy Status Severity Reaction(s) Onset Inactive Treating Comm ents Source Name Type Date Date Clinician Aspirin Propensi Active Nausea Only Un beau ty to 4-17 ity of adverse 00:00: [place] reaction 00 Medical s Branch Codeine Propensi Active Itching Univer s ty to 4-17 ity of adverse 00:00: [place] reaction 00 Medical s Branch ASPIRIN DRUG Active NAUSEA ONLY Univ ers INGREDI 4-17 ity of 00:00: [place] 00 Medical Branch CODEINE DRUG Active ITCHING Univers INGREDI 4-17 ity of 00:00: [place] 00 Medical Branch Social History Social Habit Start Date Stop Date Quantity Comments Source Sex Assigned At [facility] [place] [facility] Exposure to Not sure [facility] SARS-CoV-2 (event) Medica l Branch Cigarettes smoked 2020-07-07 2020-07-07 Univers [facility] current (pack per 00:00:00 00:00:00 Medical Branch day) - Reported Tobacco use and 2020-07-07 2020-07-07 Never used [facility] exposure 00:00:00 00:00:00 Medical Branch Smoking Status Start Date Stop Date Source Current every day smoker 2020-07-07 [facility] Medications Ordered Filled Start Stop Current Ordering Indication Dosage Frequency Signature Comments Components Source Medication Medication Date Date Medication? Clinician (SIG) Name Name meloxicam 2019-07 Yes [id number] 7.5mg Take 1 Univers 7.5 mg 2-22 [id number] tablet by ity of tablet 00:00: mouth [place] 00 daily. Medical Branch meloxicam 2019-07 Yes [id number] 7.5mg Take 1 Univers 7.5 mg 2-22 [id number] tablet by ity of tablet 00:00: mouth [place] 00 daily. Medical Branch METOCLOPRAM Yes Take one Un beau MATT 10 MG 6-26 tablet by ity o f ORAL TAB 00:00: mouth [place] 00 every 6 Medical hours as Branch needed for nausea/vom iting METOCLOPRAM Yes Take one Un beau MATT 10 MG 6-26 tablet by ity o f ORAL TAB 00:00: mouth [place] 00 every 6 Medical hours as Branch needed for nausea/vom iting XANAX 1 MG Yes None Univers ORAL TAB 6-25 Entered ity of 22:58: [address] FOLIC ACID Yes None Univers 1 MG ORAL 6-25 Entered ity of TAB 22:58: [address] VICODIN ES Yes None Univers 7.5-750 MG 6-25 Entered ity of ORAL TAB 22:58: [address] XANAX 1 MG Yes None Univers ORAL TAB 6-25 Entered ity of 22:58: [address] FOLIC ACID Yes None Univers 1 MG ORAL 6-25 Entered ity of TAB 22:58: [address] VICODIN ES Yes None Univers 7.5-750 MG 6-25 Entered ity of ORAL TAB 22:58: [address] Vital Signs Vital Name Observation Time Observation Value Comments Source Systolic blood 2020-07-07 19:17:00 163 mm[Hg] Univer sity of [facility] Diastolic blood 2020-07-07 19:17:00 80 [facility]Hg[facility] Heart rate 2020-07-07 19:16:00 93 /min Universi ty [facility] Body height 2020-07-07 19:16:00 160 cm Universi ty [facility] Body weight 2020-07-07 19:16:00 52.345 kg Universi ty [facility] BMI 2020-07-07 19:16:00 20.44 kg/m2 Universi ty [facility] Systolic blood 2020-07-07 19:17:00 163 mm[facility]Hg] [facility] 2020-07-07 19:17:00 80 [facility]Hg[facility] 2020-07-07 19:16:00 93 /min Universi ty [facility] Body height 2020-07-07 19:16:00 160 cm Universi ty [facility] Body weight 2020-07-07 19:16:00 52.345 kg Universi ty [facility] BMI 2020-07-07 19:16:00 20[facility]44 [facility] This patient has no known procedures. Encounters Start End Encounter Admission Attending Care Care Encounter Source Date/Time Date/Time Type Type Clinicians Facility Department ID 2021-05-05 2021-05-05 Outpatient R JAZMYNE [facility] [id number] Univers 14:20:00 14:20:00 MICHELE walshy o f [facility] 2020-07-07 2020-07-07 [facility] [id number] Univers 13:08:34 13:23:34 Visit [facility] [id number] it y of Surgical [id number] Aristides as Specialti [id number] Wi dical [facility] Branch [place] 2020-07-07 2020-07-07 Office [facility] [id number] 13:08:34 13:23:34 Visit [facility] [id number] Surgical [id number] Specialti [id number] [place] 2020-07-07 2020-07-07 Outpatient R CELIO [facility] [id number] [facility] 13:00:00 13:00:00 MIKKI carson [facility] Results This patient has no known results.
[2022-11-15] MEDS ORDERED: METHYLPREDNISOLONE 125 MG INJ ONE (16:02)
[2022-11-15 16:39] LABS: Absolute Lymphocytes (CBC) 1.5 K/uL (0.7-4.9); Hematocrit 42.7 % (36.0-45.0); Lymphocytes % 23.5 % (15.3-44.8); MCV 90.9 fL (80-100); MPV 8.7 fL (7.6-11.3); RBC Red Blood Cell Count 4.69 M/uL (3.86-4.86)
--- NOTE | 2022-11-15 16:47 | RAD REPORT ---
EXAM DESCRIPTION: RAD - Chest Single View - 11/15/2022 4:30 pm CLINICAL HISTORY: SOB COMPARISON: Chest Single View dated 02/13/2019; CHEST PA AND LAT 2 VIEW dated 06/07/2013; CHEST SINGL E VIEW dated 05/19/2009; CHEST SINGLE VIEW dated 12/21/2008 FINDINGS: Lines: None. Lungs: No evidence of edema or pneumonia. Calcified right lower lobe nodule . Pleural: No significant pleural effusions or pneumothorax. Cardiac: The heart size is within normal limits. Mediastinum: Within normal limits. Bones: No acute fractures. ACDF in the cervical spine . Other: None IMPRESSION: No acute cardiopulmonary disease.
[2022-11-15 16:49] LABS: Potassium 3.9 mEq/L (3.5-5.1); Troponin High Sensitivity 6.7 pg/mL (<58.9)
[2022-11-15] MEDS ORDERED: LEVALBUTEROL 1.25 MG/3 ML NEB ONE (17:25)
[2022-11-15] MEDS ORDERED: MAGNESIUM SULFATE 1 gm IVPB 1 GM/100 ML BAG IV ONE (17:46)
[2022-11-15] MEDS ORDERED: MORPHINE 2 MG/ML SYR ONE (18:12)
[2022-11-15] MEDS ORDERED: ONDANSETRON 4 MG/2 ML VIAL ONE (18:12)
--- NOTE | 2022-11-15 19:01 | RAD REPORT ---
EXAM DESCRIPTION: CT - Chest For Pe Angio - 11/15/2022 6:45 pm CLINICAL HISTORY: SOB COMPARISON: Lung Cancer Screening CT W/O dated 06/08/2021; THORAX WO CONTRAST dated 01/25/2010; Abdom en Pelvis W Contrast dated 11/15/2022 TECHNIQUE: Dynamically enhanced axial 3 mm thick images of the chest were obtained during administra tion of <100> mL Isovue 370 IV contrast. Coronal and oblique reconstruction images were generated and reviewed. Exam utilizes a protocol for optimal evaluation of pulmonary arterial tree. Maximum intensity projections 3D imaging was utilized All CT scans are performed using dose optimization technique as appropriate and may include automated exposure control or mA/KV adjustment according to patient size. FINDINGS: Chest Wall: No suspicious thyroid nodules or pathologic lymphadenopathy. Lungs: New 4 mm right upper lobe pulmonary nodule on image 17, series 402. Advanced emphysema. Calcif ied right lower lobe nodule. Pleura: No significant effusions or pneumothorax. Mediastinum/gavino: No pathologic lymphadenopathy. Pulmonary arteries/Aorta: No filling defect identified. No aortic aneurysm. Moderate narrowing of the right common carotid artery at its origin due to noncalcified plaque. Severe left subclavian artery stenosis due to predominantly noncalcified plaque. Heart: No significant pericardial effusion. Normal heart size. Multi-vessel coronary artery disease. Upper abdomen: Reference same-day CT of the abdomen. Bones: No acute abnormality. IMPRESSION: Negative for pulmonary embolism. Advanced emphysema but no other acute process identifie d. New 4 mm right upper lobe pulmonary nodule. Recommend six-month follow-up chest CT.
--- NOTE | 2022-11-15 19:07 | RAD REPORT ---
EXAM DESCRIPTION: CTAbdomen Pelvis W Contrast - 11/15/2022 6:45 pm CLINICAL HISTORY: abdominal pain COMPARISON: Abdomen Pelvis W Contrast dated 09/19/2021; Abdomen Pelvis W Contrast dated 07/03/2020 ; Abdomen Pelvis W Contrast dated 12/03/2017; CT ABD PELVIS W CONTRAST dated 12/19/2011 TECHNIQUE: CT of the abdomen and pelvis was performed. All CT scans are performed using dose optimization technique as appropriate and may include automated exposure control or mA/KV adjustment according to patient size. FINDINGS: Lower chest: No acute abnormality. Liver: Cirrhosis. 6 mm low-density lesion in the right hepatic lobe is unchanged and benign. Biliary: Cholelithiasis with distended gallbladder but no evidence of acute cholecystitis. Stomach: No significant focal abnormality. Duodenum: No significant focal abnormality. Pancreas: No significant abnormality. Spleen: Mild splenomegaly. Adrenal: No suspicious lesions. Kidney/ureter: No hydronephrosis. No renal calculi. Retroperitoneum: No retroperitoneal adenopathy. Vascular: Atherosclerosis. Severe aortoiliac occlusive disease. Bowel: Diverticulosis without diverticulitis.. No appendix identified. No secondary signs of acute ap pendicitis. Peritoneum: No ascites or free air. Bladder: Grossly unremarkable. Reproductive: No adnexal masses. Hysterectomy Bones: No acute fracture. 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 No subchondral collapse . Other: n/a IMPRESSION: No acute intra-abdominal or pelvic finding. Multiple incidental findings as noted above.
--- NOTE | 2022-11-15 19:49 | EDPHYS ---
Physician Documentation [facility] Name: Roberta Owens Age: 72 yrs Sex: Female : 1950 Arrival Date: 11/15/2022 Time: 14:48 Bed 26 Private MD: Jarrett Rawls E ED Physician Abel Yan HPI: 11/15 15:28 This 72 yrs old Female presents to ER via Ambulatory with complaints of Cough, jmm Breathing Difficulty. 15:28 The patient or guardian reports cough. Onset: The symptoms/episode began/occurred jmm gradually, 2 week(s) ago. This is a 72 year old female with a history of anxiety, hep c, gerd that presents to the ED with complaints of cough, shortness of breath beginning approx 2 weeks ago. patient recently began a course of left over abx with no relief. . Historical: - Allergies: 15:39 Aspirin; vg1 15:39 Codeine; vg1 - PMHx: 15:39 Anxiety; Back pain; Colitis; GERD; Hepatitis C; vg1 - Immunization history:: Client reports receiving the 2nd dose of the Covid vaccine. - Social history:: Smoking status: Patient reports the use of cigarette tobacco products, smokes one pack cigarettes per day. ROS: 15:28 Constitutional: Negative for fever, chills, and weight loss, Cardiovascular: Negative jmm for chest pain, palpitations, and edema. 15:28 Respiratory: Positive for cough, shortness of breath. 15:28 All other systems are negative. Exam: 15:28 Constitutional: This is a well developed, well nourished patient who is awake, alert, jmm and in no acute distress. Head/Face: atraumatic. Eyes: EOMI, no conjunctival erythema appreciated ENT: Moist Mucus Membranes Neck: Trachea midline, Supple Chest/axilla: Normal chest wall appearance and motion. Cardiovascular: Regular rate and rhythm. No edema appreciated Respiratory: Normal respirations, no respiratory distress appreciated Abdomen/GI: Non distended Back: Normal ROM Skin: General appearance color normal MS/ Extremity: Moves all extremities, no obvious deformities appreciated, no edema noted to the lower extremities Neuro: Awake and alert Psych: Behavior is normal, Mood is normal, Patient is cooperative and pleasant Vital Signs: 15:33 BP 215 / 87; Pulse 98; Resp 24; Temp 98.1; Pulse Ox 97% on R/A; Weight 45.36 kg; Height vg1 5 ft. 3 in. ; 16:00 BP 159 / 82; Pulse 77; Resp 19; Pulse Ox 96% on R/A; Pain 8/10; nj1 17:30 BP 167 / 73; Pulse 77; Resp 20; Pulse Ox 94% on R/A; Pain 8/10; nj1 18:29 BP 180 / 73; Pulse 91; Resp 24; Pulse Ox 96% on 2 lpm NC; nj1 15:33 Body Mass Index 17.71 (45.36 kg, 160.02 cm) vg1 16:00 Pain Scale: Adult nj1 17:30 Pain Scale: Adult nj1 MDM: 15:28 Patient medically screened. [facility] 23:55 Differential Diagnosis: Bronchitis Influenza Upper Respiratory Infection Pneumonia. [facility] Data reviewed: vital signs, nurses notes, lab test result(s), EKG, radiologic studies, CT scan, plain films. Consideration of Admission/Observation Patient was admitted/placed on observation. Counseling: I had a detailed discussion with the patient and/or guardian regarding: the historical points, exam findings, and any diagnostic results supporting the discharge/admit diagnosis, lab results, radiology results, the need for outpatient follow up, to return to the emergency department if symptoms worsen or persist or if there are any questions or concerns that arise at home. Response to treatment: the patient's symptoms have mildly improved after treatment. Refusal of service: The patient/guardian displays adequate decision making capability and despite a detailed discussion of alternatives, benefits, risks, and consequences refuses: Admission to the hospital for further work-up and treatment. 11/15 15:29 Order name: Basic Metabolic Panel; Complete Time: 16:50 [facility] 11/15 15:29 Order name: CBC with Diff; Complete Time: 16:46 [facility] 11/15 15:29 Order name: Troponin HS; Complete Time: 16:50 [facility] 11/15 15:29 Order name: SARS-COV-2 RT PCR; Complete Time: 16:46 [facility] 11/15 15:29 Order name: Influenza Screen (a \T\ B); Complete Time: 16:50 [facility] 11/15 16:27 Order name: Blood Culture Adult (2) [facility] 11/15 16:27 Order name: Lactate w/ 2H reflex if indic.; Complete Time: 18:05 [facility] 11/15 15:29 Order name: XRAY Chest (1 view); Complete Time: 16:50 [facility] 11/15 16:51 Order name: CT Chest For PE Angio; Complete Time: 19:20 [facility] 11/15 16:51 Order name: CT Abd/Pelvis - IV Contrast Only; Complete Time: 19:20 [facility] 11/15 15:29 Order name: EKG; Complete Time: 15:30 [facility] 11/15 15:29 Order name: Cardiac monitoring; Complete Time: 17:46 [facility] 11/15 15:29 Order name: EKG - Nurse/Tech; Complete Time: 16:27 [facility] 11/15 15:29 Order name: IV Saline Lock; Complete Time: 16:27 [facility] 11/15 15:29 Order name: Labs collected and sent; Complete Time: 16:27 [facility] 11/15 15:29 Order name: O2 Per Protocol; Complete Time: 16:27 [facility] 11/15 15:29 Order name: O2 Sat Monitoring; Complete Time: 16:27 [facility] Administered Medications: 16:11 Drug: MethylPrednisoLONE IVP 125 mg Route: IVP; Site: right hand; nj1 17:25 Follow up: Response: No adverse reaction nj1 17:25 Drug: Levalbuterol Inhalation 1.25 mg Route: Inhalation; nj1 18:00 Follow up: Response: No adverse reaction nj1 17:40 Drug: Magnesium Sulfate IVPB 1 grams Route: IVPB; Infused Over: 1 hrs; Site: right hand;nj1 18:10 Drug: morphine IVP or IV 2 mg Route: IVP; Infused Over: 4 mins; Site: right hand; nj1 18:10 Drug: Ondansetron IVP 4 mg Route: IVP; Site: right hand; nj1 Disposition Summary: 11/15/22 19:48 Discharge Ordered Location: Home [facility] Condition: Stable [facility] Diagnosis - COPD/ Chronic obstructive pulmonary disease with (acute) exacerbation [facility] Followup: [facility] - With: Petr Gutierrez MD - When: 2 - 3 days - Reason: Recheck today's complaints, Continuance of care, Re-evaluation by your physician Discharge Instructions: - Discharge Summary Sheet [facility] - Chronic Obstructive Pulmonary Disease Exacerbation [facility] Forms: - Medication Reconciliation Form [facility] - Thank You Letter jmm - Antibiotic Education jmm - Prescription Opioid Use jm Prescriptions: - albuterol sulfate 90 mcg/actuation Inhalation HFA Aerosol Inhaler - inhale 2 inhalation by INHALATION route every 4-6 hours As needed administer jmm via ventilator; 1 unit; Refills: 0, Product Selection Permitted - Prednisone 20 mg Oral Tablet - take 3 tablets by ORAL route once daily for 5 days; 15 tablet; Refills: 0, [facility] Product Selection Permitted - Albuterol Sulfate 2.5 mg /3 mL (0.083 %) Inhalation Solution for Nebulization - inhale 1 unit by NEBULIZATION route every 8 hours As needed; 1 unit; Refills: jmm 0, Product Selection Permitted - Zithromax Z-Wild 250 mg Oral Tablet - take 1 tablet by ORAL route as directed for 5 days Day 1 - take two (2) tablets jm one time. Day 2, 3, 4 , 5 take one (1) tablet once daily.; 6 tablet; Refills: 0, Product Selection Permitted Addendum: 11/17/2022 08:38 Co-signature as Attending Physician, Abel GONZALEZ I reviewed the patient's care r n provided by the Advanced Practice Provider and agree with the diagnosis and treatment plan. Signatures: Dispatcher [employer] EDLuigi Goodman PA PA jmm Nieto, Roman, MD MD rn Garcia, Victoria RN RN vg1 Dionna Evans RN RN nj1
--- NOTE | 2022-11-15 19:49 | ER ---
Nurse's Notes [facility] Name: Roberta Owens Age: 72 yrs Sex: Female : 1950 Arrival Date: 11/15/2022 Time: 14:48 Bed 26 Private MD: Jarrett Rawls E Diagnosis: COPD/ Chronic obstructive pulmonary disease with (acute) exacerbation Presentation: 11/15 15:33 Chief complaint: Patient states: States cough, SOB/difficulty breathing x 2 weeks; vg1 states Epigastric pain and pain in neck Pt seen outside smoking cigarette, pt was told to put out cigarette and pt stated "Im almost done". Coronavirus screen: Vaccine status: Patient reports receiving the 2nd dose of the covid vaccine. Client denies travel out of the [place] in the last 14 days. Ebola Screen: Patient negative for fever greater than or equal to 101.5 degrees Fahrenheit, and additional compatible Ebola Virus Disease symptoms Patient denies exposure to infectious person. Patient denies travel to an Ebola-affected area in the 21 days before illness onset. Initial Sepsis Screen: Does the patient meet any 2 criteria? RR > 20 per min. HR > 90 bpm. Initial Sepsis Screen: Does the patient have a suspected source of infection? No. Patient's initial sepsis screen is negative. Risk Assessment: Do you want to hurt yourself or someone else? Patient reports no desire to harm self or others. Onset of symptoms was November 01, 2022. 15:33 Method Of Arrival: Ambulatory vg1 15:33 Acuity: PHILIP 2 vg1 Triage Assessment: 15:39 General: Appears in no apparent distress. uncomfortable, Behavior is calm, cooperative. vg1 Pain: Complains of pain in epigastric area Pain currently is 0 out of 10 on a pain scale. at worst was 8 out of 10 on a pain scale. Pain began x 2 weeks. Respiratory: Reports shortness of breath at rest on exertion cough that is Onset: The symptoms/episode began/occurred x 2 weeks, the patient has moderate shortness of breath. Historical: - Allergies: 15:39 Aspirin; vg1 15:39 Codeine; vg1 - PMHx: 15:39 Anxiety; Back pain; Colitis; GERD; Hepatitis C; vg1 - Immunization history:: Client reports receiving the 2nd dose of the Covid vaccine. - Social history:: Smoking status: Patient reports the use of cigarette tobacco products, smokes one pack cigarettes per day. Screenin:00 [facility] ED Fall Risk Assessment (Adult) History of falling in the last 3 months, nj1 including since admission No falls in past 3 months (0 pts) Confusion or Disorientation No (0 pts) Intoxicated or Sedated No (0 pts) Impaired Gait No (0 pts) Mobility Assist Device Used No (0 pt) Altered Elimination No (0 pt) Score/Fall Risk Level 0 - 2 = Low Risk Oriented to surroundings, Maintained a safe environment, Hourly rounding (assess needs \\T\\ fall precautionary measures) done. 16:00 Abuse screen: Denies threats or abuse. Denies injuries from another. Nutritional nj1 screening: No deficits noted. Tuberculosis screening: No symptoms or risk factors identified. Assessment: 16:00 Reassessment: Patient appears in no apparent distress at this time. Patient and/or nj1 family updated on plan of care and expected duration. Pain level reassessed. Patient is alert, oriented x 3, equal unlabored respirations, skin warm/dry/pink. Pain: Complains of pain in Generalized "all over my body". 16:00 Neuro: Level of Consciousness is awake, alert, obeys commands, Oriented to person, nj place, time, situation. Cardiovascular: Patient's skin is warm and dry. Rhythm is sinus rhythm. Respiratory: Airway is patent Respiratory effort is even, unlabored. 17:30 Reassessment: Patient appears in no apparent distress at this time. Patient and/or nj1 family updated on plan of care and expected duration. Pain level reassessed. Patient is alert, oriented x 3, equal unlabored respirations, skin warm/dry/pink. Vital Signs: 15:33 BP 215 / 87; Pulse 98; Resp 24; Temp 98.1; Pulse Ox 97% on R/A; Weight 45.36 kg; Height vg1 5 ft. 3 in. ; 16:00 BP 159 / 82; Pulse 77; Resp 19; Pulse Ox 96% on R/A; Pain 8/10; nj1 17:30 BP 167 / 73; Pulse 77; Resp 20; Pulse Ox 94% on R/A; Pain 8/10; nj1 18:29 BP 180 / 73; Pulse 91; Resp 24; Pulse Ox 96% on 2 lpm NC; nj1 15:33 Body Mass Index 17.71 (45.36 kg, 160.02 cm) vg1 16:00 Pain Scale: Adult nj1 17:30 Pain Scale: Adult nj1 ED Course: 15:00 Patient arrived in ED. am2 15:00 Jarrett Rawls MD is Private Physician. am2 15:03 Luigi Agarwal PA is PHCP. [facility] 15:03 Abel Yan MD is Attending Physician. [facility] 15:25 Dionna Evans RN is Primary Nurse. nj1 15:39 Triage completed. vg1 15:39 Arm band placed on. vg1 16:00 Patient has correct armband on for positive identification. Placed in gown. Bed in low nj1 position. Call light in reach. Adult w/ patient. 16:10 Inserted saline lock: 22 gauge in right hand, using aseptic technique. Blood collected. nj1 Missed attempt(s): 22 gauge in left antecubital area. Bleeding controlled, band aid applied, catheter tip intact. 16:31 XRAY Chest (1 view) In Process Unspecified. EDMS 18:15 Inserted saline lock: 20 gauge in right antecubital area, using aseptic technique. nj1 Blood collected. 18:46 CT Chest For PE Angio In Process Unspecified. EDMS 18:46 CT Abd/Pelvis - IV Contrast Only In Process Unspecified. EDMS 19:48 Petr Gutierrez MD is Referral Physician. [facility] 20:16 No provider procedures requiring assistance completed. IV discontinued, intact, vc1 bleeding controlled, No redness/swelling at site. Pressure dressing applied. 20:17 IV discontinued, intact, bleeding controlled, No redness/swelling at site. Pressure vc1 dressing applied. Administered Medications: 16:11 Drug: MethylPrednisoLONE IVP 125 mg Route: IVP; Site: right hand; nj1 17:25 Follow up: Response: No adverse reaction nj1 17:25 Drug: Levalbuterol Inhalation 1.25 mg Route: Inhalation; nj1 18:00 Follow up: Response: No adverse reaction nj1 17:40 Drug: Magnesium Sulfate IVPB 1 grams Route: IVPB; Infused Over: 1 hrs; Site: right hand;nj1 18:10 Drug: morphine IVP or IV 2 mg Route: IVP; Infused Over: 4 mins; Site: right hand; nj1 18:10 Drug: Ondansetron IVP 4 mg Route: IVP; Site: right hand; ne1 Medication: 20:17 VIS not applicable for this client. vc1 Outcome: 19:48 Discharge ordered by . avril 20:17 Discharged to home ambulatory, with family. vc1 20:17 Condition: good 20:17 Discharge instructions given to patient, Instructed on discharge instructions, follow up and referral plans. medication usage, Demonstrated understanding of instructions, follow-up care, medications, Prescriptions given X 4. 20:17 Patient left the ED. vc1 Signatures: Dispatcher [employer] EDMS Luigi Agarwal PA PA jmm Moreno, Amanda am2 Michelle Pfeiffer, RN RN vg1 Isabella Andrea RN RN vc1 Dionna Evans RN RN nj1 Corrections: (The following items were deleted from the chart) 17:49 17:30 BP 167 / 73; Pulse 77bpm; Resp 20bpm; Pulse Ox 94% RA; nj1 nj1 18:28 18:10 Ondansetron IVP 4 mg IVP in right antecubital nj1 nj1
[2022-11-15 20:38] VITALS: TEMP 98.1
[2022-11-15 20:51] VITALS: O2SAT 96
[2022-11-15 20:53] VITALS: BP 180/73
--- NOTE | 2022-11-16 14:08 | EKG ---
Test Date: 2022-11-15 Test Time: 16:17:39 [place] Operator: ALFREDO MEASUREMENT RESULTS: Intervals: Rate: 74 TN: 134 QRSD: 80 QT: 388 QTc: 430 [place]: P: 85 TN: 134 QRS: 73 T: -85 INTERPRETIVE STATEMENTS: Normal sinus rhythm Septal infarct, age undetermined ST & T wave abnormality, consider inferolateral ischemia Abnormal ECG Compared to ECG 02/13/2019 22:33:46 Myocardial infarct finding now present ST (T wave) deviation now present Possible ischemia now present T-wave abnormality no longer present Electronically Signed On 11-16-22 14:06:24 CDT by Josiah Echevarria
== END 2022-11-15 20:17 | disposition home or self-care (01) ==
LOC: ER 14:48
DX: J44.1 Chronic obstructive pulmonary disease with (acute) exacerbation (principal); F17.210 Nicotine dependence, cigarettes, uncomplicated; Z20.822 Contact with and (suspected) exposure to COVID-19; Z88.5 Allergy status to narcotic agent; Z88.6 Allergy status to analgesic agent
CPT/HCPCS: 93005; 87040 ×2; 85025; 80048; 36415; 83605; 84484; 87804 ×2; 71275; 74177; 71045; 96375; 96374; 99285; U0003; Q9967; J3475; J7614; J2270; J2930; J2405

== ENCOUNTER 2022-12-05 16:41 | Observation (INO) | payer OTHER ==
--- OUTSIDE RECORDS SUMMARY | 2022-12-05 16:43 | XMS REPORT | Continuity of Care Document ---
:1950 Author Organization [facility] t Address [address] [place] [address] [address] [place] [address] Care Team Providers Name Role Phone JAZMYNEMICHELE Attending Clinician Unavailable Mikki Terry Attending Clinician MIKKI SHIRLEY Attending Clinician Unavailable Payers Payer Name Policy Type Policy Number Effective Date Expiration Date [place] khan MEDICARE PART A [id number] 2008 \T\ B 00:00:00 Problems Condition Condition [...] y y 00 Term Medical abnormalit abnormalit Director [place] [facility] y y Utility Allergies, Adverse Reactions, [...] Source Sex [facility]igned [facility] [place] [facility] Exposure to Not sure [facility] SARS-CoV-2 (event) Medica l Branch Cigarettes smoked 2020-07-07 2020-07-07 [facility] current (pack per 00:00:00 00:00:00 Medical Branch day) - Reported Tobacco use and 2020-07-07 2020-07-07 Never used [facility] exposure 00:00:00 00:00:00 Medical Branch Smoking Status Start Date Stop Date Source Current every day smoker 2020-07-07 [facility]:00[facility] [place] [facility] Ordered Filled Start Stop Current Ordering Indication Dosage Frequency Signature Comments Components Source Medication Medication Date Date Medication? Clinician (SIG) Name Name meloxicam 2019-07 Yes [id number] 7.5mg Take 1 Univers 7.5 mg 2-22 [id number] tablet by ity of tablet 00:00: mouth [place] 00 daily. Medical Branch meloxicam 2019-07 Yes [id number] 7.5mg Take 1 Univers 7.5 mg 2-22 [id number] tablet by ity of tablet 00:00: mouth [place] 00 daily. Medical Branch METOCLOPRAM Yes Take one Un beau MATT 10 MG 6-26 tablet by ity o f ORAL TAB 00:00: mouth [place] 00 every 6 Medical hours as Branch needed for nausea/vom iting METOCLOPRAM Yes Take one Un beau MATT 10 MG 6-26 tablet by ity o f ORAL TAB 00:00: mouth [place] 00 every 6 Medical hours as Branch needed for nausea/vom iting XANAX 1 MG Yes None Univers ORAL TAB 6-25 Entered ity of 22:58: [address] FOLIC ACID Yes None Univers 1 MG ORAL 6-25 Entered ity of TAB 22:58: [address] VICODIN ES Yes None Univers 7.5-750 MG 6-25 Entered ity of ORAL TAB 22:58: [address] XANAX 1 MG Yes None Univers ORAL TAB 6-25 Entered ity of 22:58: [address] FOLIC ACID Yes None Univers 1 MG ORAL 6-25 Entered ity of TAB 22:58: [address] VICODIN ES Yes None Univers 7.5-750 MG 6-25 Entered ity of ORAL TAB 22:58: [address] Vital Signs Vital Name Observation Time Observation Value Comments Source Systolic blood 2020-07-07 19:17:00 163 mm[Hg] [facility]iver [facility] Diastolic blood 2020-07-07 19:17:00 80 [facility]Hg[facility] 2020-07-07 19:16:00 93 /min Universi ty [facility] Body height 2020-07-07 19:16:00 160 cm Universi ty [facility] Body weight 2020-07-07 19:16:00 52.345 kg Universi ty [facility] BMI 2020-07-07 19:16:00 20.44 kg/m2 Universi ty [facility] Systolic blood 2020-07-07 19:17:00 163 [facility]Hg[facility] 2020-07-07 19:17:00 80 mm[facility]Hg[facility] 2020-07-07 19:16:00 93 /min Universi ty [facility] Body height 2020-07-07 19:16:00 160 cm Universi ty [facility] Body weight 2020-07-07 19:16:00 52.345 kg Universi ty [facility] BMI 2020-07-07 19:16:00 20.44 kg/m2 [facility] Procedures This patient has no known procedures. Encounters Start End Encounter Admission Attending Care Care Encounter Source Date/Time Date/Time Type Type Clinicians Facility Department ID 2021-05-05 2021-05-05 Outpatient R JAZMYNE [facility] [id number] Univers 14:20:00 14:20:00 MICHELE walshy o f [facility] 2020-07-07 2020-07-07 [facility] [id number] Univers 13:08:34 13:23:34 Visit [facility] [id number] it y of Surgical [id number] Aristides as Specialti [id number] Dc dical [address] [place] 2020-07-07 2020-07-07 [facility] [id number] 13:08:34 13:23:34 Visit [facility] [id number] Surgical [id number] [facility] [id number] [place] 2020-07-07 2020-07-07 Outpatient Angely SHIRLEY [facility] [id number] [place] [facility] 13:00:00 13:00:00 MIKKI carson [facility] Results This patient has no known results.
[2022-12-05] MEDS ORDERED: NA CHLORIDE 0.9% 1,000 ML ONE ×2 (17:35→20:40)
[2022-12-05 17:55] LABS: Protime INR 0.92
[2022-12-05 17:57] LABS: Absolute Lymphocytes (CBC) 1.6 K/uL (0.7-4.9); Hematocrit 36.5 % (36.0-45.0); MCV 91.2 fL (80-100); MPV 7.6 fL (7.6-11.3); RBC Red Blood Cell Count 4.01 M/uL (3.86-4.86)
[2022-12-05 18:08] LABS: ALT/SGPT 31 U/L (13-56); AST/SGOT 22 U/L (15-37); Albumin 3.6 g/dL (3.4-5.0); Alkaline Phosphatase 110 U/L (45-117); BUN Blood Urea Nitrogen 10 mg/dL (7-18); Bicarbonate 25 mEq/L (21-32); Bilirubin Total 0.2 mg/dL (0.2-1.0); Glomerular Filtration Rate 72 ml/min (=/>90); Glucose Level 130 mg/dL (74-106); Potassium 2.9 mEq/L (3.5-5.1); Protein, Total 7.6 g/dL (6.4-8.2); Sodium Level 135 mEq/L (136-145); Troponin High Sensitivity 5.9 pg/mL (<58.9)
--- NOTE | 2022-12-05 18:08 | ER ---
Nurse's Notes [facility] Name: Roberta Owens Age: 72 yrs Sex: Female : 1950 Arrival Date: 12/05/2022 Time: 16:41 Bed 6 Private MD: Diagnosis: Lower GI bleed Presentation: 12/05 17:04 Chief complaint: Patient states: "I had a lower GI study done on Monday and then ph today I had a sharp pain in my stomach and I had 3 tarry bowel movements." Reports LLQ pain and bloating. Coronavirus screen: Vaccine status: Patient reports receiving the 2nd dose of the covid vaccine. Ebola Screen: No symptoms or risks identified at this time. Initial Sepsis Screen: Does the patient meet any 2 criteria? No. Patient's initial sepsis screen is negative. Does the patient have a suspected source of infection? No. Patient's initial sepsis screen is negative. Risk Assessment: Do you want to hurt yourself or someone else? Patient reports no desire to harm self or others. 17:04 Method Of Arrival: Ambulatory ph 17:04 Acuity: PHILIP 2 ph Historical: - Allergies: 17:06 Aspirin; ph 17:06 Codeine; ph - PMHx: 17:06 Anxiety; Back pain; Colitis; GERD; Hepatitis C; ph - Immunization history:: Adult Immunizations unknown. - Social history:: Smoking status: Patient reports the use of cigarette tobacco products, smokes one-half pack cigarettes per day. Screenin:41 [facility] ED Fall Risk Assessment (Adult) History of falling in the last 3 months, mb9 including since admission No falls in past 3 months (0 pts) Confusion or Disorientation No (0 pts) Intoxicated or Sedated No (0 pts) Impaired Gait No (0 pts) Mobility Assist Device Used No (0 pt) Altered Elimination No (0 pt) Score/Fall Risk Level 0 - 2 = Low Risk Oriented to surroundings, Maintained a safe environment, Educated pt \\T\\ family on fall prevention, incl call for assistance when getting out of bed. Abuse screen: Denies threats or abuse. Nutritional screening: No deficits noted. Tuberculosis screening: No symptoms or risk factors identified. Assessment: 17:30 General: Appears uncomfortable. Pain: Complains of pain in abdomen Pain radiates to mb9 back Pain currently is 7 out of 10 on a pain scale. Quality of pain is described as throbbing, Pain began suddenly. Neuro: Ewing Agitation-Sedation Scale (RASS): 0 - Alert and Calm Level of Consciousness is awake, alert, obeys commands, Oriented to person, place, time, situation, Appropriate for age. Cardiovascular: Rhythm is sinus tachycardia. Respiratory: Airway is patent Respiratory effort is even, unlabored, Respiratory pattern is regular, symmetrical, Breath sounds are clear bilaterally. GI: Abdomen is flat, non-distended, Bowel sounds present X 4 quads. Abd is soft Abdomen is tender to palpation in left upper quadrant and left lower quadrant Reports rectal bleeding, bloody stool, since today. Pt states stool is tarry and looks like coffee grounds. EENT: No signs and/or symptoms were reported regarding the EENT system. Derm: Skin is pink, warm \\T\\ dry. Musculoskeletal: Range of motion: intact in all extremities. 19:00 Reassessment: No changes from previously documented assessment. Patient and/or family vc1 updated on plan of care and expected duration. Pain level reassessed. Patient is alert, oriented x 3, equal unlabored respirations, skin warm/dry/pink. 20:00 Reassessment: No changes from previously documented assessment. Patient and/or family vc1 updated on plan of care and expected duration. Pain level reassessed. Patient is alert, oriented x 3, equal unlabored respirations, skin warm/dry/pink. Vital Signs: 17:04 BP 191 / 82; Pulse 110; Resp 18; Temp 98; Pulse Ox 98% on R/A; Weight 52.16 kg; Height ph 5 ft. 3 in. ; 17:50 BP 158 / 106; Pulse 102; Resp 16; Pulse Ox 99% on R/A; mb9 19:15 BP 160 / 68; Pulse 90; Resp 18; Pulse Ox 97% on R/A; vc1 19:30 BP 175 / 73; Pulse 92; Resp 17; Pulse Ox 98% ; vc1 21:23 BP 215 / 74; Pulse 89; Resp 17; Pulse Ox 99% ; vc1 21:57 BP 198 / 79; Pulse 88; Pulse Ox 100% ; vc1 17:04 Body Mass Index 20.37 (52.16 kg, 160.02 cm) ph ED Course: 16:44 Patient arrived in ED. mr 16:45 hSoaib Johansen MD is Attending Physician. sp3 17:06 Triage completed. ph 17:07 Arm band placed on. ph 17:11 Sonya Villalpando, KIAH is Primary Nurse. mb9 17:12 Placed in gown. Bed in low position. Call light in reach. Side rails up X 1. Client mb9 placed on continuous cardiac and pulse oximetry monitoring. NIBP monitoring applied. media monitor on. 17:30 Radiology exam delayed due to lab results not completed at this time. (BUN/Creatinine) jg10 IV insertion attempt and/or patient not having appropriate IV at this time. 17:40 EKG done, by ED staff, reviewed by Shoaib Johansen MD. mb9 17:41 Initial lab(s) drawn, by me, sent to lab. Inserted saline lock: 22 gauge in right em1 wrist, using aseptic technique. Blood collected. 17:41 Type And Screen Sent. em1 17:41 Basic Metabolic Panel Sent. em1 17:41 CBC with Diff Sent. em1 17:41 LFT's Sent. em1 17:41 Magnesium Sent. em1 17:41 PT-INR Sent. em1 17:41 Troponin HS Sent. em1 17:42 Lactate w/ 2H reflex if indic. Sent. em1 17:51 No provider procedures requiring assistance completed. mb9 18:07 Oneil Lopez MD is Hospitalizing Provider. sp3 18:17 XRAY Chest (1 view) In Process Unspecified. EDMS 19:12 CT Abd/Pelvis - IV Contrast Only In Process Unspecified. EDMS 20:27 Inserted saline lock: 24 gauge in left antecubital area, using aseptic technique. mb9 Administered Medications: 17:35 Drug: NS 0.9% IV 1000 ml Route: IV; Rate: 1 bolus; Site: right forearm; mb9 20:27 Drug: Pantoprazole IVP 80 mg Route: IVP; Site: left antecubital; mb9 20:27 Drug: Pantoprazole IV 8 mg/hr Route: IV; Rate: 25 ml/hr; Site: left antecubital; mb9 21:57 Follow up: IV Status: Infusion continued upon admission vc1 20:37 Drug: Potassium Chloride IV 20 mEq Route: IV; Rate: calculated rate; Site: left mb9 antecubital; 21:57 Follow up: IV Status: Infusion continued upon admission vc1 21:29 Drug: amLODIPine PO 5 mg Route: PO; mb9 21:29 Drug: hydrALAZINE IVP 10 mg Route: IVP; Site: right wrist; mb9 21:57 Not Given (pt went upstairr): Potassium Chloride IV 20 mEq IV at calculated rate once; vc1 administer over 1-2 hours Medication: 17:48 VIS not applicable for this client. mb9 Outcome: 18:07 Decision to Hospitalize by Provider. sp3 21:58 Patient left the ED. vc1 Signatures: Dispatcher [employer] [facility] HerreraSonya, Diallo emTara Winter RN RN Shoaib Johansen MD MD sp3 Isabella Andrea RN RN vc1 July ZafarArlene Villalpando, Sonya Barlow RN RN mb9
--- NOTE | 2022-12-05 18:08 | EDPHYS ---
Physician Documentation [facility] Name: Roberta Owens Age: 72 yrs Sex: Female : 1950 Arrival Date: 12/05/2022 Time: 16:41 Bed 6 Private MD: ED Physician Shoaib Johansen HPI: 12/05 17:36 This 72 yrs old Female presents to ER via Ambulatory with complaints of Bloody Stools. sp3 17:36 72-year-old female with a history of prior colitis, hepatitis C, anxiety, multiple sp3 polyp removal including large polyps removed approximately [address] Russo also repeat colonoscopy on Monday 2 days ago for recurrent pain and reevaluation. Patient now has had left lower quadrant abdominal pain recurrent starting this morning along with black tarry stools over the last 24 hours. She went to her GI doctor's office today who referred her to the ED for further evaluation and subsequent admission. She denies any chest pain, shortness of breath, syncope, near syncope, pam red blood, or any other concerning findings. ROS is otherwise negative.. Historical: - Allergies: 17:06 Aspirin; ph 17:06 Codeine; ph - PMHx: 17:06 Anxiety; Back pain; Colitis; GERD; Hepatitis C; ph - Immunization history:: Adult Immunizations unknown. - Social history:: Smoking status: Patient reports the use of cigarette tobacco products, smokes one-half pack cigarettes per day. ROS: 17:37 Constitutional: Negative for fever, chills, and weight loss, Eyes: Negative for injury, sp3 pain, redness, and discharge, ENT: Negative for injury, pain, and discharge, Neck: Negative for injury, pain, and swelling, Respiratory: Negative for shortness of breath, cough, wheezing, and pleuritic chest pain, Back: Negative for injury and pain, MS/Extremity: Negative for injury and deformity, Skin: Negative for injury, rash, and discoloration, Neuro: Negative for headache, weakness, numbness, tingling, and seizure, Psych: Negative for depression, anxiety, suicide ideation, homicidal ideation, and hallucinations, Allergy/Immunology: Negative for hives, rash, and allergies, Endocrine: Negative for neck swelling, polydipsia, polyuria, polyphagia, and marked weight changes. 17:37 All other systems are negative. Exam: 17:37 Constitutional: This is a well developed, well nourished patient who is awake, alert, sp3 and in no acute distress. Head/Face: Normocephalic, atraumatic. Eyes: Pupils equal round and reactive to light, extra-ocular motions intact. Lids and lashes normal. Conjunctiva and sclera are non-icteric and not injected. Cornea within normal limits. Periorbital areas with no swelling, redness, or edema. Neck: Trachea midline, no thyromegaly or masses palpated, and no cervical lymphadenopathy. Supple, full range of motion without nuchal rigidity, or vertebral point tenderness. No Meningismus. Chest/axilla: Normal chest wall appearance and motion. Nontender with no deformity. No lesions are appreciated. Respiratory: Lungs have equal breath sounds bilaterally, clear to auscultation and percussion. No rales, rhonchi or wheezes noted. No increased work of breathing, no retractions or nasal flaring. Back: No spinal tenderness. No costovertebral tenderness. Full range of motion. Skin: Warm, dry with normal turgor. Normal color with no rashes, no lesions, and no evidence of cellulitis. MS/ Extremity: Pulses equal, no cyanosis. Neurovascular intact. Full, normal range of motion. Neuro: Awake and alert, GCS 15, oriented to person, place, time, and situation. Cranial nerves II-XII grossly intact. Motor strength 5/5 in all extremities. Sensory grossly intact. Cerebellar exam normal. Normal gait. Psych: Awake, alert, with orientation to person, place and time. Behavior, mood, and affect are within normal limits. 17:37 Cardiovascular: Rate: tachycardic. 17:37 ECG was reviewed by the Attending Physician. EKG demonstrates normal sinus rhythm at 96 bpm with normal intervals, normal axis, normal QRS, nonspecific diffuse ST/T changes without evidence of acute ischemia. 17:37 Abdomen/GI: Left lower quadrant abdominal pain to palpation without peritoneal signs, rebound or guarding.. Vital Signs: 17:04 BP 191 / 82; Pulse 110; Resp 18; Temp 98; Pulse Ox 98% on R/A; Weight 52.16 kg; Height ph 5 ft. 3 in. ; 17:50 BP 158 / 106; Pulse 102; Resp 16; Pulse Ox 99% on R/A; mb9 19:15 BP 160 / 68; Pulse 90; Resp 18; Pulse Ox 97% on R/A; vc1 19:30 BP 175 / 73; Pulse 92; Resp 17; Pulse Ox 98% ; vc1 21:23 BP 215 / 74; Pulse 89; Resp 17; Pulse Ox 99% ; vc1 21:57 BP 198 / 79; Pulse 88; Pulse Ox 100% ; vc1 17:04 Body Mass Index 20.37 (52.16 kg, 160.02 cm) ph MDM: 17:16 Patient medically screened. sp3 17:40 Data reviewed: vital signs, nurses notes. Data reviewed: old medical records, lab test sp3 result(s), EKG, radiologic studies. ED course: 72-year-old female with recurrent lower GI bleed. We will administer normal saline, obtain type and screen along with laboratory values and CBC. CT scan of the abdomen pelvis is also pending. I do not believe the bleed is brisk however given her black tarry stools it is present. Patient will likely need another colonoscopy. We will keep her n.p.o. and provide supportive care until GI intervention can be obtained. Patient is hemodynamically stable with pulse rate now in the 90s.. 12/05 17:15 Order name: Basic Metabolic Panel; Complete Time: 18:17 [facility] 12/05 17:15 Order name: CBC with Diff; Complete Time: 18:03 [facility] 12/05 17:15 Order name: LFT's; Complete Time: 18:17 [facility] 12/05 17:15 Order name: Magnesium; Complete Time: 18:17 [facility] 12/05 17:15 Order name: PT-INR; Complete Time: 18:03 [facility] 12/05 17:15 Order name: Troponin HS; Complete Time: 18:17 [facility] 12/05 17:15 Order name: Type And Screen; Complete Time: 19:49 [facility] 12/05 17:16 Order name: Lactate w/ 2H reflex if indic.; Complete Time: 18:03 [facility] 12/05 17:15 Order name: XRAY Chest (1 view); Complete Time: 18:51 [facility] 12/05 17:15 Order name: CT Abd/Pelvis - IV Contrast Only; Complete Time: 19:49 [facility] 12/05 17:15 Order name: EKG; Complete Time: 17:16 sp3 12/05 17:15 Order name: Cardiac monitoring; Complete Time: 17:48 sp3 12/05 17:15 Order name: EKG - Nurse/Tech; Complete Time: 17:48 sp3 12/05 17:15 Order name: IV Saline Lock; Complete Time: 17:41 sp3 12/05 17:15 Order name: Labs collected and sent; Complete Time: 17:41 sp3 12/05 17:15 Order name: O2 Per Protocol; Complete Time: 17:48 sp3 12/05 17:15 Order name: O2 Sat Monitoring; Complete Time: 17:48 sp3 12/05 17:15 Order name: NPO; Complete Time: 17:47 sp3 Administered Medications: 17:35 Drug: NS 0.9% IV 1000 ml Route: IV; Rate: 1 bolus; Site: right forearm; mb9 20:27 Drug: Pantoprazole IVP 80 mg Route: IVP; Site: left antecubital; mb9 20:27 Drug: Pantoprazole IV 8 mg/hr Route: IV; Rate: 25 ml/hr; Site: left antecubital; mb9 21:57 Follow up: IV Status: Infusion continued upon admission vc1 20:37 Drug: Potassium Chloride IV 20 mEq Route: IV; Rate: calculated rate; Site: left mb9 antecubital; 21:57 Follow up: IV Status: Infusion continued upon admission vc1 21:29 Drug: amLODIPine PO 5 mg Route: PO; mb9 21:29 Drug: hydrALAZINE IVP 10 mg Route: IVP; Site: right wrist; mb9 21:57 Not Given (pt went upstairr): Potassium Chloride IV 20 mEq IV at calculated rate once; vc1 administer over 1-2 hours Disposition Summary: 12/05/22 18:07 Hospitalization Ordered Hospitalization Status: Inpatient Admission sp3 Provider: Oneil Lopez sp3 Location: Telemetry/MedSurg (Inpatient) sp3 Condition: Stable sp3 Problem: an acute exacerbation sp3 Symptoms: have worsened sp3 Bed/Room Type: Standard sp3 Room Assignment: 207(12/05/22 19:56) mw Diagnosis - Lower GI bleed sp3 Forms: - Medication Reconciliation Form sp3 - SBAR form sp3 Signatures: Dispatcher [employer] EDShannen Medina RN RN mw Johan Zepeda, TROUT FARMER-C TROUT FARMER-Cla1 Tara Lee RN RN Shoaib Johansen MD MD sp3 Sonya Villalpando RN RN mb9 Isabella Andrea RN vc1 Corrections: (The following items were deleted from the chart) 19:56 18:07 herson long
[2022-12-05 18:15] LABS: Bilirubin Direct < 0.1 mg/dL (0-0.2); Bilirubin Indirect, Calculated ND mg/dL (0.2-0.8)
--- NOTE | 2022-12-05 18:22 | RAD REPORT ---
EXAM DESCRIPTION: RAD - Chest Single View - 12/05/2022 6:15 pm CLINICAL HISTORY: PAIN Chest pain. COMPARISON: Chest Single View dated 11/15/2022; Chest Single View dated 02/13/2019; CHEST PA AND LAT 2 VIEW dated 06/07/2013; CHEST SINGLE VIEW dated 05/19/2009 FINDINGS: Portable technique limits examination quality. The lungs are emphysematous but grossly clear. The heart is normal in size. No displaced fractures.Ce rvical spine hardware. IMPRESSION: No acute intrathoracic process suspected.
--- NOTE | 2022-12-05 19:45 | RAD REPORT ---
EXAM DESCRIPTION: CTAbdomen Pelvis W Contrast - 12/05/2022 7:10 pm CLINICAL HISTORY: Abdominal pain. ABD PAIN COMPARISON: Abdomen Pelvis W Contrast dated 11/15/2022; Abdomen Pelvis W Contrast dated 09/19/2021; Abdomen Pelvis W Contrast dated 07/03/2020; Abdomen Pelvis W Contrast dated 12/03/2017 TECHNIQUE: Biphasic CT imaging of the abdomen and pelvis was performed with 100 ml non-ionic IV cont rast. All CT scans are performed using dose optimization technique as appropriate and may include automated exposure control or mA/KV adjustment according to patient size. FINDINGS: The lung bases are clear. The liver demonstrates a nodular contour likely representing cirrhosis. Spleen, pancreas, adrenal gla nds and kidneys are within normal limits. No bowel obstruction, free air, free fluid or abscess. Sigmoid diverticulosis coli without diverticul itis. Moderate stool retained throughout the colon. Nonvisualized appendix. Distended gallbladder con taining stone. Aortoiliac atherosclerosis. No evidence of significant lymphadenopathy. No suspicious bony findings. IMPRESSION: Prominent diverticulosis coli without diverticulitis. Mild liver cirrhosis. Cholelithiasis.
--- NOTE | 2022-12-05 20:02 | P.HP ---
Certification for Inpatient Patient admitted to: Observation With expected LOS: <2 Midnights Patient will require the following post-hospital care: None Practitioner: I am a practitioner with admitting privileges, knowledge of patient current condition, hospital course, and medical plan of care. Services: Services provided to patient in accordance with Admission requirements found in Title 42 Section 412.3 of the Code of Federal Regulations Patient History Date of Service: 12/05/22 Reason for admission: Upper GI bleed History of Present Illness: 72-year-old female with history of GERD, hypertension, COPD presents emergency department with chief complaint of black tarry stools. She reports about 3 years ago she had a colonoscopy performed with multiple polyps removed, on Monday the that she had a repeat colonoscopy performed which her GI doctor told her looked good, today she developed black tarry stools, she reports 3 black stools throughout the day today last around noon today. She denies previous episodes this. She also reports some left-sided abdominal pain denies any bright red blood per rectum. Her labs were significant for potassium 2.9 her hemoglobin 12.3 hematocrit 36.5 platelets 158. ED physician spoke with her GI doctor who recommended admission, serial H&H, Protonix. Allergies codeine [Codeine] Allergy (Severe, Verified 12/04/17 01:16) Itching/Hives/Rash aspirin Allergy (Mild, Verified 12/04/17 01:16) Nausea/Vomiting Home Medications: ALPRAZolam [Xanax*] 1 mg PO QID PRN 12/04/17 Hydrocodone/Acetaminophen [Hydrocodone-Acetamin 10-325 mg] 1 each PO Q4H PRN 12/04/17 Thyroid Tab [[place] Thyroid*] 20 mg PO DAILY 12/04/17 Dexlansoprazole [Dexilant] 60 mg PO DAILY 02/14/19 Sumatriptan [Imitrex] 1 spray NS DAILY 02/14/19 buprenorphine HCL [Buprenorphine HCl] 8 mg SL BID PRN 02/14/19 - Past Medical/Surgical History Diabetic: No -: colitis -: Hepatitis C -: Chronic back pain -: anxiety -: tobacco abuse -: IBS -: hysterectomy -: lumpectomy L Psychosocial/ Personal History: Pt lives at home with family. - Family History Father -: Heart disease Mother -: Heart disease - Social History Smoking Status: Never smoker Alcohol use: No CD- Drugs: No Caffeine use: Yes Place of Residence: Home Review of Systems 10-point ROS is otherwise unremarkable Gastrointestinal: Abdominal Pain, Melena Physical Examination - Physical Exam General: Alert, In no apparent distress, Oriented x3 HEENT: Atraumatic, PERRLA, Mucous membr. moist/pink, EOMI, Sclerae nonicteric Neck: Supple, 2+ carotid pulse no bruit, No LAD, Without JVD or thyroid abnormality Respiratory: Clear to auscultation bilaterally, Normal air movement Cardiovascular: Regular rate/rhythm, Normal S1 S2 Capillary refill: <2 Seconds Gastrointestinal: Normal bowel sounds, Tenderness (Mild left sided abdominal tenderness) Musculoskeletal: No tenderness Integumentary: No rashes Neurological: Normal speech, Normal strength at 5/5 x4 extr, Normal tone, Normal affect - Studies Laboratory Data (last 24 hrs) 12/05/22 17:40: PT 11.0, INR 0.92 12/05/22 17:40: WBC 5.00, Hgb 12.3, Hct 36.5, Plt Count 158 12/05/22 17:40: Sodium 135 L, Potassium 2.9 L, BUN 10, Creatinine 0.87, Glucose 130 H, Magnesium 2.0, Total Bilirubin 0.2, AST 22, ALT 31, Alkaline Phosphatase 110 Assessment and Plan - Plan Assessment: Melena Hypokalemia Hypertension COPD Plan: Melena N.p.o. after midnight, IV PPI, serial H&H, GI consultation. Hypokalemia Replaced in ER, protocol in place, will check mag level. Hypertension Hold oral medications for now, restart when appropriate. COPD As needed breathing treatments. DVT PPX:SCD Code status:Full Discharge Plan: Home Plan to discharge in: 24 Hours - Advance Directives Does patient have a Living Will: No Does patient have a Durable POA for Healthcare: No - Code Status/Comfort Care Code Status Assessed: Yes (Full code) Critical Care: No Time Spent Managing Pts Care (In Minutes): 55
[2022-12-05] MEDS ORDERED: KCL 20 MEQ/100 mL IVPB 100 ML IV ONE (20:23)
[2022-12-05] MEDS ORDERED: PANTOPRAZOLE 40 MG INJ ONE (20:23)
[2022-12-05] MEDS ORDERED: NA CHLORIDE 0.9% 0 ML ONE (20:23)
[2022-12-05] MEDS ORDERED: HYDRALAZINE HCL 20 MG/ML VIAL ONE (21:30)
[2022-12-05] MEDS ORDERED: AMLODIPINE 5 MG TAB ONE (21:30)
[2022-12-05] MEDS: PANTOPRAZOLE INJ 80 MG in NA CHLORIDE 0.9% 250 ML IV SCH (21:39)
[2022-12-05 22:18] VITALS: BMI 20.2
[2022-12-05] MEDS: MORPHINE 2 MG/ML SYR IV PRN (22:25)
[2022-12-05] MEDS: NA CHLORIDE 0.9% 1,000 ML IV SCH (22:25)
[2022-12-05] MEDS ORDERED: ALPRAZOLAM 1 MG TABLET PO PRN (22:38)
[2022-12-06] MEDS ORDERED: MORPHINE 2 MG/ML SYR IV ONE (00:07)
[2022-12-06] MEDS: ONDANSETRON 4 MG/2 ML VIAL IV PRN ×2 (01:00→06:00)
[2022-12-06] MEDS: MORPHINE 2 MG/ML SYR IV PRN (05:45)
[2022-12-06] MEDS: NA CHLORIDE 0.9% 1,000 ML IV SCH (05:46)
[2022-12-06 06:23] LABS: Absolute Lymphocytes (CBC) 1.7 K/uL (0.7-4.9); Hematocrit 34.6 % (36.0-45.0); Lymphocytes % 38.2 % (15.3-44.8); MCV 92.2 fL (80-100); MPV 7.4 fL (7.6-11.3); RBC Red Blood Cell Count 3.75 M/uL (3.86-4.86)
[2022-12-06 06:43] LABS: Protime INR 1.1
--- NOTE | 2022-12-06 06:57 | P.PN ---
Date of Service: 12/06/22 Subjective: feeling better this morning; pain is less severe states she was unable to tolerate walking this morning; it exacerbated his abdominal pain no BM since before arrival ROS: 10 point ROS as noted above, otherwise negative Physical Exam: GEN: Alert, oriented, NAD HEENT: Normal conjunctiva, sclera anicteric CV: Regular rate and rhythm, no edema Pulm: Nonlabored respirations on room air ABD: Soft, Mild left sided abdominal tenderness MSK: No joint tenderness Integumentary: No rashes Neuro: Normal speech, normal affect vitals reviewed Problem List: Melena Hypokalemia Hypertension COPD Melena CT abdomen - Prominent diverticulosis coli without diverticulitis, Mild liver cirrhosis, +Cholelithiasis IVF serial H&H GI consult NPO for tentative scope planned 12/06 Continue protonix pain medication as needed Hypokalemia Replaced in ER, protocol in place, will check mag level. Hypertension Hold oral medications for now, restart when appropriate. COPD breathing treatments as needed VTE: SCD Code: Full Dispo: Home 1-2 days
[2022-12-06] MEDS: PANTOPRAZOLE INJ 80 MG in NA CHLORIDE 0.9% 250 ML IV SCH (07:39)
[2022-12-06 07:46] LABS: Albumin 3.2 g/dL (3.4-5.0); Bilirubin Total 0.3 mg/dL (0.2-1.0); Potassium 3.4 mEq/L (3.5-5.1); Protein, Total 6.8 g/dL (6.4-8.2)
[2022-12-06] MEDS ORDERED: PANTOPRAZOLE 40 MG INJ ONE (09:41)
[2022-12-06] MEDS ORDERED: PANTOPRAZOLE INJ 80 MG in NA CHLORIDE 0.9% 250 ML IV SCH (10:00)
[2022-12-06 10:04] LABS: Hematocrit 36.7 % (36.0-45.0)
[2022-12-06] MEDS ORDERED: Ringers Lactate 1,000 ML IV ONE (12:20)
[2022-12-06] MEDS ORDERED: EPINEPHRINE/PF 1 MG/ML AMP ONE (12:46)
[2022-12-06] MEDS ORDERED: propofoL 200 MG/20 ML VIAL IV ONE ×2 (12:57)
[2022-12-06] MEDS ORDERED: LIDOCAINE 1% MPF 5 ML VIAL ONE (13:41)
[2022-12-06] MEDS ORDERED: AMLODIPINE 5 MG TAB PO SCH (13:45)
[2022-12-06] MEDS ORDERED: HYDROCODONE/APAP 7.5/325 MG TAB PO PRN (13:45)
[2022-12-06 13:49] VITALS: BP 132/59; TEMP 97.8; O2SAT 96
--- NOTE | 2022-12-06 14:16 | P.DS ---
Admission Date: 12/05/22 Discharge Date: 12/06/22 Disposition: ROUTINE DISCHARGE Discharge Condition: GOOD Reason for Admission: Upper GI bleed Consultations: Gastrointestinal - Dr. Almeida Brief History of Present Illness: 72yo F, PMH: GERD, hypertension, COPD Patient presents emergency department with chief complaint of black tarry stools. She reports about 3 years ago she had a colonoscopy performed with multiple polyps removed, on Monday the that she had a repeat colonoscopy performed which her GI doctor told her looked good, today she developed black tarry stools, she reports 3 black stools throughout the day today last around noon today. She denies previous episodes this. She also reports some left- sided abdominal pain denies any bright red blood per rectum. Her labs were sign ificant for potassium 2.9 her hemoglobin 12.3 hematocrit 36.5 platelets 158. ED physician spoke with her GI doctor who recommended admission, serial H&H, Protonix. Hospital Course: Problem List: Melena Hypokalemia Hypertension COPD Patient presented with black tarry stools and left sided abdominal pain. Initial CT indicated "Prominent diverticulosis coli without diverticulitis, Mild liver cirrhosis,and Cholelithiasis" GI was consulted. Dr. Almeida performed EGD which showed an ulcer. She recently underwent a colonoscopy a few days prior to admission and did not undergo any biopsies. CT abdomen/pelvis was negative for any acute findings. Patient was kept NPO after midnight and underwent EGD ~1pm. She was upset at having to remain NPO for the procedure. After the procedure she was ready to leave and demanded nursing staff remove her IV. Discussed plan to advance diet and discharge home, which she stated she was ready to go home if she was going to be discharged. Dr. Almeida recommended BID protonix. Discussed she still may have some black stools over next few days and should improve. New prescriptions: Protonix twice a day Follow up PCP 3-5 days Gastrointestinal within a few weeks Physical Exam: GEN: Alert, oriented, NAD HEENT: Normal conjunctiva, sclera anicteric CV: Regular rate and rhythm, no edema Pulm: Nonlabored respirations on room air ABD: Soft, Mild left sided abdominal tenderness Neuro: Normal speech, +anxious, frustrated Vital Signs/Physical Exam: Temp Pulse Resp BP Pulse Ox 97.8 F 77 18 132/59 L 98 05/23/23 13:45 12/06/22 13:45 12/06/22 13:45 12/06/22 13:45 12/06/22 08:00 Laboratory Data at Discharge: WBC 4.40 thou/uL (4.3-10.9) 12/06/22 04:31 Hgb 11.9 g/dL (12.0-15.0) L 12/06/22 09:53 Hct 36.7 % (36.0-45.0) 12/06/22 09:53 Plt Count 158 thou/uL (152-406) 12/06/22 04:31 PT 12.1 SECONDS (9.5-12.5) 12/06/22 06:14 INR 1.10 12/06/22 06:14 Sodium 141 mEq/L (136-145) D 12/06/22 06:14 Potassium 3.4 mEq/L (3.5-5.1) L D 12/06/22 06:14 BUN 6 mg/dL (7-18) L 12/06/22 06:14 Creatinine 0.76 mg/dL (0.55-1.02) 12/06/22 06:14 Glucose 95 mg/dL (74-106) 12/06/22 06:14 Magnesium 2.5 mg/dL (1.6-2.4) H 12/06/22 06:14 Total Bilirubin 0.3 mg/dL (0.2-1.0) 12/06/22 06:14 AST 21 U/L (15-37) 12/06/22 06:14 ALT 27 U/L (13-56) 12/06/22 06:14 Alkaline Phosphatase 102 U/L (45-117) 12/06/22 06:14 Home Medications: ALPRAZolam [Xanax*] 1 mg PO TID PRN 12/04/17 Thyroid Tab [[place] Thyroid*] 30 mg PO DAILY 12/04/17 Albuterol 1 puff IH PRN PRN 12/05/22 Amlodipine [Norvasc*] 5 mg PO DAILY 12/05/22 Hydrocodone Bit/Acetaminophen [Hydrocodon-Acetaminoph 7.5-325] 1 tab PO TID PRN 12/05/22 Pantoprazole [Protonix Tab*] 40 mg PO BID 30 Days #60 tab 12/06/22 New Medications: Pantoprazole [Protonix Tab*] 40 mg PO BID 30 Days #60 tab Physician Discharge Instructions: Patient presented with black tarry stools and left sided abdominal pain. Initial CT indicated "Prominent diverticulosis coli without diverticulitis, Mild liver cirrhosis,and Cholelithiasis" GI was consulted. Dr. Almeida performed EGD which showed an ulcer. No further testing needed at this time. Can still have some black stool in the next few days New prescriptions: Protonix twice a day Follow up PCP 3-5 days Gastrointestinal within a few weeks Followup: Jarrett Rawls MD [Primary Care Provider] - (Call to schedule appointment.) Time spent managing pt's care (in minutes): 45
--- NOTE | 2022-12-07 04:59 | EKG ---
Test Date: 2022-12-05 Test Time: 17:32:53 [employer] Lending Trader: MB MEASUREMENT RESULTS: Intervals: Rate: 96 AR: 132 QRSD: 80 QT: 334 QTc: 421 [place]: P: 76 AR: 132 QRS: 69 T: 198 INTERPRETIVE STATEMENTS: Normal sinus rhythm Possible Left atrial enlargement ST & T wave abnormality, consider inferolateral ischemia Abnormal ECG Compared to ECG 11/15/2022 16:17:39 Myocardial infarct finding no longer present ST (T wave) deviation still present Possible ischemia still present Electronically Signed On 12-07-22 04:54:37 CDT by Matthew Penny
== END 2022-12-06 15:25 | disposition home or self-care (01) ==
LOC: ER 16:41 → 2ND 19:50 → INTOOBSV 12-06 12:09 → OBSVTOIN 12-06 12:09
PROVIDERS: ADMIT Hospitalist; ATTEND Hospitalist
PROC: 0DB78ZX Excision of Stomach, Pylorus, Via Natural or Artificial Opening Endoscopic, Diagnostic (ICD-10-PCS; principal; 2022-12-05)
PROC: 0DB68ZX Excision of Stomach, Via Natural or Artificial Opening Endoscopic, Diagnostic (ICD-10-PCS; 2022-12-05)
DX: K92.1 Melena (principal); K21.9 Gastro-esophageal reflux disease without esophagitis; I10 Essential (primary) hypertension; E87.6 Hypokalemia; J44.9 Chronic obstructive pulmonary disease, unspecified; K57.92 Diverticulitis of intestine, part unspecified, without perforation or abscess without bleeding; K74.60 Unspecified cirrhosis of liver; K80.20 Calculus of gallbladder without cholecystitis without obstruction; K25.9 Gastric ulcer, unspecified as acute or chronic, without hemorrhage or perforation; Z88.6 Allergy status to analgesic agent
CPT/HCPCS: 43239; 93005; 85025 ×2; 80048; 36415; 86900; 83735 ×2; 86850; 88312; 85610 ×2; 86901; 80076; 83605; 88305; 85018 ×2; 85014; 84484; 80053; 74177; 71045; Q9967; J3480; J0360; J2704; J2001; C9113 ×3; J2270 ×3; J2405 ×2; G0378 ×2; J7120; J7050 ×2; J7030 ×4; 99285; J0171

== ENCOUNTER 2023-05-13 20:43 | Emergency (ER) | payer OTHER ==
--- OUTSIDE RECORDS SUMMARY | 2023-05-13 20:51 | XMS REPORT | Continuity of Care Document ---
:1950 Author Organization [facility] t Address [address] [place] [address] [address] [place] [address] Care Team Providers Name Role Phone JAZMYNEMICHELE Attending Clinician Unavailable Mikki Terry Attending Clinician MIKKI SHIRLEY Attending Clinician Unavailable Payers Payer Name Policy Type Policy Number Effective Date Expiration Date [place] khan MEDICARE PART A [id number] 2008 \T\ B 00:00:00 Problems Condition Condition [...] y y 00 Term Medical abnormalit abnormalit [facility] Branch y y Utility Allergies, Adverse Reactions, [...] Source Sex [facility]igned [facility] [place] [facility] Exposure to Not sure [facility] SARS-CoV-2 (event) Medica l Branch Cigarettes smoked 2020-07-07 2020-07-07 [facility] current (pack per 00:00:00 00:00:00 Medical Branch day) - Reported Tobacco use and 2020-07-07 2020-07-07 Never used [facility] exposure 00:00:00 00:00:00 Medical Branch Smoking Status Start Date Stop Date Source Current every day smoker 2020-07[facility]07 [facility] [place] [facility] Medications Ordered Filled Start Stop Current Ordering Indication Dosage Frequency Signature Comments Components Source Medication Medication Date Date Medication? Clinician (SIG) Name Name meloxicam 2019-07 Yes [id number] 7.5mg Take 1 Univers 7.5 mg 2-22 [id number] tablet by ity of tablet 00:00: mouth [place] 00 daily. Medical Branch meloxicam 2019-07 Yes [id number] 7.5mg Take 1 Univers 7.5 mg 2-22 [id number] tablet by ity of tablet 00:00: mouth [place] 00 daily. Medical Branch METOCLOPRAM Yes Take one Un beau MATT 10 MG 6-26 tablet by ity o f ORAL TAB 00:00: mouth [place] 00 every 6 Medical hours as Branch needed for nausea/vom iting METOCLOPRAM Yes Take one Un beau MATT 10 MG 6-26 tablet by ity o f ORAL TAB 00:00: mouth [place] 00 every 6 Medical hours as Branch needed for nausea/vom iting XANAX 1 MG Yes None Univers ORAL TAB 6-25 Entered ity of 22:58: [address] FOLIC ACID Yes None Univers 1 MG ORAL 6-25 Entered ity of TAB 22:58: [address] VICODIN ES Yes None Univers 7.5-750 MG 6-25 Entered ity of ORAL TAB 22:58: [address] XANAX 1 MG Yes None Univers ORAL TAB 6-25 Entered ity of 22:58: [address] FOLIC ACID Yes None Univers 1 MG ORAL 6-25 Entered ity of TAB 22:58: [address] VICODIN ES Yes None Univers 7.5-750 MG 6-25 Entered ity of ORAL TAB 22:58: [address] Vital Signs Vital Name Observation Time Observation Value Comments Source Systolic blood 2020-07-07 19:17:00 163 mm[Hg] Univer [facility]ity [facility] Diastolic blood 2020-07-07 19:17:00 80 [facility]Hg[facility] 2020-07-07 19:16:00 93 /min Universi ty [facility] Body height 2020-07-07 19:16:00 160 cm Universi ty [facility] Body weight 2020-07-07 19:16:00 52.345 kg Universi ty [facility] BMI 2020-07-07 19:16:00 20.44 kg/m2 Universi ty [facility] Systolic blood 2020-07-07 19:17:00 163 [facility]Hg[facility] 2020-07-07 19:17:00 80 mm[facility]Hg] [facility] 2020-07-07 19:16:00 93 /min Universi ty [facility] Body height 2020-07-07 19:16:00 160 cm Universi ty [facility] Body weight 2020-07-07 19:16:00 52.345 kg Universi ty [facility] BMI 2020-07-07 19:16:00 20.44 kg/m2 [facility] Procedures This patient has no known procedures. Encounters Start End Encounter Admission Attending Care Care Encounter Source Date/Time Date/Time Type Type Clinicians Facility Department ID 2021-05-05 2021-05-05 Outpatient R [facility]NE [facility] [id number] Univers 14:20:00 14:20:00 MICHELE walshy o f [facility] 2020-07-07 2020-07-07 [facility] [id number] Univers 13:08:34 13:23:34 Visit [facility] [id number] it y of Surgical [id number] Aristides as Specialti [id number] dical [address] [place] 2020-07-07 2020-07-07 [facility] [id number] 13:08:34 13:23:34 Visit [facility] [id number] Surgical [id number] [facility] [id number] [address] [place] 2020-07-07 2020-07-07 Outpatient Angely SHIRLEY [facility] [id number] [facility] 13:00:00 13:00:00 MIKKI carson [facility] Results This patient has no known results.
--- NOTE | 2023-05-13 22:32 | EDPHYS ---
Physician Documentation [facility] Name: Roberta Owens Age: 73 yrs Sex: Female : 1950 Arrival Date: 05/13/2023 Time: 20:43 Bed 10 Private MD: ED Physician Mickey Lopez HPI: 05/13 21:25 This 73 yrs old Female presents to ER via Ambulatory with complaints of Ear Pain, Sore cp Throat, Headache. 21:25 The patient presents with sore throat, swelling of right side. cp 21:25 The patient describes throat pain as constant. Onset: The symptoms/episode cp began/occurred 3 day(s) ago. The patient presents with pain, that is acute. Associated signs and symptoms: Pertinent positives: headache, Pertinent negatives: fever, vomiting, dysphagia. Historical: - Allergies: 21:10 Aspirin; iw 21:10 Codeine; iw 21:10 Hydrochlorothiazide; iw - PMHx: 21:10 Anxiety; Back pain; Back pain; Colitis; Colitis; GERD; Hepatitis C; iw - Immunization history:: Adult Immunizations unknown. - Social history:: Smoking status: . ROS: 21:30 Constitutional: Negative for body aches, chills, fever, poor PO intake, cp 21:30 Eyes: Negative for injury, pain, redness, and discharge, cp 21:30 ENT: Positive for ear pain, sore throat, Negative for drainage from ear(s), difficulty swallowing, difficulty handling secretions, 21:30 Cardiovascular: Negative for chest pain, palpitations, 21:30 Respiratory: Negative for cough, shortness of breath, wheezing, 21:30 Skin: Negative for rash, 21:30 Neuro: Positive for headache, Negative for altered mental status, weakness, 21:30 All other systems are negative, Exam: 21:33 Constitutional: The patient appears in no acute distress, alert, awake, cp non-diaphoretic, non-toxic, well developed, well nourished, 21:33 Head/Face: Normocephalic, atraumatic. cp 21:33 Eyes: Periorbital structures: appear normal, Conjunctiva: normal, no exudate, no injection, Sclera: no appreciated abnormality, Lids and lashes: appear normal, bilaterally, 21:33 ENT: External ear(s): are unremarkable, Ear canal(s): are normal, clear, TM's: dullness, bilaterally, Nose: is normal, Mouth: Lips: moist, Oral mucosa: moist, Posterior pharynx: Airway: no evidence of obstruction, patent, Tonsils: surgically absent, Uvula: midline, swelling, is not appreciated, erythema, that is mild, exudate, is not appreciated, 21:33 Neck: ROM/movement: is normal, is supple, no range of motions limitations, no meningismus, no nuchal rigidity, 21:33 Chest/axilla: Inspection: normal, 21:33 Cardiovascular: Rate: normal, Rhythm: regular, 21:33 Respiratory: the patient does not display signs of respiratory distress, Respirations: normal, no use of accessory muscles, no retractions, labored breathing, is not present, Breath sounds: are clear throughout, no decreased breath sounds, no stridor, no wheezing, 21:33 Abdomen/GI: Exam negative for discomfort, distension, guarding, Inspection: abdomen appears normal, 21:33 Skin: no rash present. Vital Signs: 21:08 BP 173 / 62; Pulse 86; Resp 16; Temp 98.7; Pulse Ox 100% on R/A; Weight 51.71 kg; iw Height 5 ft. 3 in. ; Pain 5/10; 22:50 BP 163 / 72; Pulse 82; Resp 16; Pulse Ox 100% on R/A; Pain 4/10; pf1 21:08 Body Mass Index 20.19 (51.71 kg, 160.02 cm) iw 21:08 Pain Scale: Adult iw 22:50 Pain Scale: Adult pf1 MDM: 21:16 Patient medically screened. cp 21:30 Differential diagnosis: apthous stomatitis, apthous ulcer, otitis media, otitis cp externa, ruptured TM, epiglottitis, rick-murrell virus, group A strep tonsillitis. 22:30 Data reviewed: vital signs, nurses notes, lab test result(s). cp 22:30 Counseling: I had a detailed discussion with the patient and/or guardian regarding the cp historical points, exam findings, and any diagnostic results supporting the discharge/admit diagnosis, lab results, to return to the emergency department if symptoms worsen or persist or if there are any questions or concerns that arise at home. 05/13 21:17 Order name: Strep cp 05/13 22:18 Interpretation: Reviewed. cp 05/13 21:17 Order name: COVID-19 SARS RT PCR; Complete Time: 22:18 cp 05/13 21:17 Order name: Influenza Screen (a \T\ B) cp 05/13 21:54 Order name: Throat Culture EDMS Administered Medications: 22:03 Not Given (Medication not available. ): viscous lidocaineliquid (4 %) 5 ml Mucous cm10 Membrane once 22:45 Drug: Amoxicillin-Clavulanate PO Chewable Tablet 800 mg PO once Route: PO; pf1 22:54 Follow up: Response: No adverse reaction pf1 Disposition Summary: 05/13/23 22:31 Discharge Ordered Notes: Location: Home cp Problem: new cp Symptoms: have improved cp Condition: Stable cp Diagnosis - Acute pharyngitis, unspecified cp - Otalgia cp - Headache cp Followup: cp - With: Private Physician - When: 2 - 3 days - Reason: Worsening of condition Discharge Instructions: - Discharge Summary Sheet cp - Pharyngitis cp - Sore Throat cp Forms: - Medication Reconciliation Form cp - Thank You Letter cp - Antibiotic Education cp - Prescription Opioid Use cp - Patient Portal Instructions cp - Leadership Thank You Letter cp Prescriptions: - Amoxicillin 875 mg Oral Tablet - take 1 tablet ORAL route every 12 hours for 10 days; 20 tablet; Refills: 0, cp Product Selection Permitted Addendum: 05/17/2023 08:47 Co-signature as Attending Physician, Mickey Lopez MD I reviewed the patient's care r t provided by the Advanced Practice Provider and agree with the diagnosis and treatment plan. Signatures: Dispatcher [employer] Jeana García RN RN iw Page, Corey, PA PA cp Mickey Lopez MD MD rt Virginia Messina RN RN pf1 Jesenia Armendariz RN cm10
--- NOTE | 2023-05-13 22:32 | ER ---
Nurse's Notes [facility] Name: Roberta Owens Age: 73 yrs Sex: Female : 1950 Arrival Date: 05/13/2023 Time: 20:43 Bed 10 Private MD: Diagnosis: Acute pharyngitis, unspecified;Otalgia;Headache Presentation: 05/13 21:08 Chief complaint: Patient states: started out with an ear ache on right side , tried OTC iw ear drops, they wouldn't go down, i was having fever , and then noticed swelling in right side of neck X 3 days. Coronavirus screen: At this time, the client does not indicate any symptoms associated with coronavirus-19. Ebola Screen: Patient negative for fever greater than or equal to 101.5 degrees Fahrenheit, and additional compatible Ebola Virus Disease symptoms Patient denies exposure to infectious person. Patient denies travel to an Ebola-affected area in the 21 days before illness onset. No symptoms or risks identified at this time. Initial Sepsis Screen: Does the patient meet any 2 criteria? No. Patient's initial sepsis screen is negative. Does the patient have a suspected source of infection? No. Patient's initial sepsis screen is negative. Risk Assessment: Do you want to hurt yourself or someone else? Patient reports no desire to harm self or others. Onset of symptoms was May 08, 2023. 21:08 Method Of Arrival: Ambulatory iw 21:08 Acuity: PHILIP 4 iw 21:12 Acuity: PHILIP 3 iw Historical: - Allergies: 21:10 Aspirin; iw 21:10 Codeine; iw 21:10 Hydrochlorothiazide; iw - PMHx: 21:10 Anxiety; Back pain; Back pain; Colitis; Colitis; GERD; Hepatitis C; iw - Immunization history:: Adult Immunizations unknown. - Social history:: Smoking status: . Screenin:20 [facility] ED Fall Risk Assessment (Adult) History of falling in the last 3 months, pf1 including since admission No falls in past 3 months (0 pts) Confusion or Disorientation No (0 pts) Intoxicated or Sedated No (0 pts) Impaired Gait No (0 pts) Mobility Assist Device Used No (0 pt) Altered Elimination No (0 pt) Score/Fall Risk Level 0 - 2 = Low Risk Oriented to surroundings, Maintained a safe environment, Educated pt \T\ family on fall prevention, incl call for assistance when getting out of bed, Assessed \T\ reinforced patient's understanding of fall precautions, Provided non-skid footwear, Hourly rounding (assess needs \T\ fall precautionary measures) done, Used ambulatory aids as needed (educated on \T\ assisted with), Used gait belt as appropriate. 22:20 Abuse screen: Denies threats or abuse. Nutritional screening: No deficits noted. pf1 Tuberculosis screening: No symptoms or risk factors identified. Assessment: 22:20 General: Appears in no apparent distress. comfortable, well groomed, well developed, pf1 Behavior is calm, cooperative, appropriate for age, quiet. 22:20 Pain: Complains of pain in throat, right ear and headache Pain currently is 7 out of 10 pf1 on a pain scale. Neuro: Level of Consciousness is awake, alert, obeys commands, Oriented to person, place, time, situation, Reports headache. Cardiovascular: No deficits noted. Capillary refill < 3 seconds Patient's skin is warm and dry. Respiratory: No deficits noted. Airway is patent Respiratory effort is even, unlabored, Respiratory pattern is regular, symmetrical, Breath sounds are clear bilaterally. GI: No deficits noted. No signs and/or symptoms were reported involving the gastrointestinal system. : No deficits noted. No signs and/or symptoms were reported regarding the genitourinary system. EENT: Throat is reddened Reports pain in throat and right side ear pain with headache. Vital Signs: 21:08 BP 173 / 62; Pulse 86; Resp 16; Temp 98.7; Pulse Ox 100% on R/A; Weight 51.71 kg; iw Height 5 ft. 3 in. ; Pain 5/10; 22:50 BP 163 / 72; Pulse 82; Resp 16; Pulse Ox 100% on R/A; Pain 4/10; pf1 21:08 Body Mass Index 20.19 (51.71 kg, 160.02 cm) iw 21:08 Pain Scale: Adult iw 22:50 Pain Scale: Adult pf1 ED Course: 20:47 Patient arrived in ED. kj1 20:53 Melvin Turner PA is PHCP. cp 20:53 Mickey Lopez MD is Attending Physician. cp 21:10 Triage completed. iw 21:10 Arm band placed on. iw 22:20 Patient has correct armband on for positive identification. Bed in low position. Call pf1 light in reach. 22:54 Provided Education on: prescription . pf1 22:54 Patient did not have IV access during this emergency room visit. pf1 22:54 No provider procedures requiring assistance completed. pf1 Administered Medications: 22:03 Not Given (Medication not available. ): viscous lidocaineliquid (4 %) 5 ml Mucous cm10 Membrane once 22:45 Drug: Amoxicillin-Clavulanate PO Chewable Tablet 800 mg PO once Route: PO; pf1 22:54 Follow up: Response: No adverse reaction pf1 Medication: 22:20 VIS not applicable for this client. pf1 Outcome: :31 Discharge ordered by MD. cp 22:53 Discharged to home ambulatory, with family, pf1 :53 Condition: stable :53 Discharge instructions given to patient, family, Instructed on discharge instructions, follow up and referral plans. Demonstrated understanding of instructions, follow-up care, medications, Prescriptions given X 1, :54 Patient left the ED. pf1 Signatures: Jeana Guzman, RN RN Melvin Watkins PA PA cp Jackson, Kandis kj1 Virginia Messina RN RN pf1 Jesenia Armendariz RN cm10
[2023-05-13] MEDS ORDERED: AMOX TR/K CLAV 400MG CHEW TAB PO ONE (22:56)
[2023-05-13 23:42] VITALS: BP 173/62; TEMP 98.7; O2SAT 100
== END 2023-05-13 22:54 | disposition home or self-care (01) ==
LOC: ER 20:43
DX: R51.9 Headache, unspecified (principal); R07.0 Pain in throat; Z11.52 Encounter for screening for COVID-19; Z88.5 Allergy status to narcotic agent; Z88.6 Allergy status to analgesic agent; Z88.8 Allergy status to other drugs, medicaments and biological substances
CPT/HCPCS: 87070; 87081; 87635; 87804; 99283

== ENCOUNTER 2024-01-07 18:40 | Emergency (ER) | payer OTHER ==
[2024-01-07] MEDS ORDERED: IPRATROPIUM BROM 0.5MG/2.5ML ONE (20:45)
[2024-01-07] MEDS ORDERED: METHYLPREDNISOLONE 125 MG INJ ONE (20:45)
[2024-01-07] MEDS ORDERED: ALBUTEROL 2.5 MG/3 ML NEB SOL ONE (20:45)
[2024-01-07] MEDS ORDERED: NA CHLORIDE 0.9% 1,000 ML ONE (20:45)
[2024-01-07 20:48] LABS: Absolute Eosinophils 0.1 K/uL (0-0.5); Absolute Lymphocytes (CBC) 1.2 K/uL (0.7-4.9); Absolute Monocytes 0.3 K/uL (0.1-1.3); Basophils % 1.1 % (0-1.3); Eosinophils % 2.7 % (0-4.4); Hematocrit 31.6 % (36.0-45.0); Hemoglobin 10.3 g/dL (12.0-15.0); MCH 27.1 pg (27.0-35.0); MCHC 32.5 g/dL (32.0-36.0); MCV 83.5 fL (80-100); MPV 8.1 fL (7.6-11.3); Monocytes % 7.6 % (3.3-12.3); Neutrophils % 54.6 % (41.7-73.7); Nucleated Red Blood Cells % 0.1 % (0-0); Platelets 147 thou/uL (152-406); RBC Red Blood Cell Count 3.79 M/uL (3.86-4.86); Red Cell Distribution Width 16.2 % (12.1-15.2)
--- NOTE | 2024-01-07 21:00 | RAD REPORT ---
EXAM DESCRIPTION: RAD - Chest Single View - 01/07/2024 8:42 pm CLINICAL HISTORY: DYSPNEA COMPARISON: Chest Single View dated 12/05/2022; Chest Single View dated 11/15/2022; Chest Single View d ated 02/13/2019; CHEST PA AND LAT 2 VIEW dated 06/07/2013 FINDINGS: Lines: None. Lungs: No evidence of edema or pneumonia. Calcified nodule in the right lower lobe. Pleural: No significant pleural effusions or pneumothorax. Cardiac: The heart size is within normal limits. Mediastinum: Within normal limits. Bones: No acute fractures. ACDF in the cervical spine. Other: None IMPRESSION: No acute cardiopulmonary disease.
[2024-01-07 21:12] LABS: Anion Gap 8.9 mEq/L (5.0-15.0); Potassium 3.9 mEq/L (3.5-5.1)
[2024-01-07 21:24] LABS: INFLUENZA A NAA NEGATIVE (NEGATIVE); RESPIRATORY SYNCYTIAL VIR NAA NEGATIVE (NEGATIVE); SARS-COV-2 RT PCR NEGATIVE (NEGATIVE)
[2024-01-07 21:51] LABS: Specific Gravity < 1.005 (1.005-1.030); Sqamous Epithelial <5 /HPF (None Seen); Urine Bacteria <20 /HPF (<20); Urine Bilirubin NEGATIVE (Negative); Urine Blood Negative (Negative); Urine Clarity Clear (Clear); Urine Color Colorless (Yellow); Urine Culture Reflex Order NOT NEEDED; Urine Glucose NEGATIVE (Negative); Urine Ketones NEGATIVE (Negative); Urine Micro Reflex YN NO BILL MICROSCOPIC; Urine Nitrite NEGATIVE (Negative); Urine Protein NEGATIVE (Negative); Urine RBC <5 /HPF (None Seen); Urine Urobilinogen Normal (Normal); Urine WBC <5 /HPF (<5); Urine pH 6.5 (5.0-7.0)
[2024-01-07] MEDS ORDERED: hydrOXYzine HCL 25 MG TAB ONE (21:53)
--- NOTE | 2024-01-08 08:52 | ER ---
Nurse's Notes [facility] Name: Roberta Owens Age: 73 yrs Sex: Female : 1950 Arrival Date: 01/07/2024 Time: 18:40 Bed 15 Private MD: Diagnosis: Viral infection, unspecified;COPD/ Chronic obstructive pulmonary disease with (acute) exacerbation Presentation: 01/06 19:03 Chief complaint: Patient states: Sore throat, weak, SOB, fatigue, loosing weight for 2 ll1 weeks. Coronavirus screen: Client denies travel out of the [place] in the last 14 days. At this time, the client does not indicate any symptoms associated with coronavirus-19. Ebola Screen: Patient denies travel to an Ebola-affected area in the 21 days before illness onset. Initial Sepsis Screen: Does the patient meet any 2 criteria? No. Patient's initial sepsis screen is negative. Does the patient have a suspected source of infection? No. Patient's initial sepsis screen is negative. Risk Assessment: Do you want to hurt yourself or someone else? Patient reports no desire to harm self or others. Onset of symptoms was December 24, 2023. 19:03 Method Of Arrival: Ambulatory ll1 19:03 Acuity: PHILIP 3 ll1 Triage Assessment: 19:04 General: Appears uncomfortable, ill, Behavior is calm, cooperative, appropriate for ll1 age. General: Reports fatigue for. Pain: Complains of pain in throat Pain currently is 10 out of 10 on a pain scale. Quality of pain is described as aching, throbbing. EENT: Reports pain when swallowing. Neuro: Reports headache. Respiratory: Reports shortness of breath. 22:16 Respiratory: the patient has mild shortness of breath. ha1 22:16 Respiratory: Onset: The symptoms/episode began/occurred gradually. ha1 Historical: - Allergies: 18:55 Aspirin; ll1 18:55 Codeine; ll1 18:55 hydrochlorothiazide; ll1 - PMHx: 18:55 Anxiety; Back pain; Colitis; GERD; Hepatitis C; ll1 - Immunization history:: Adult Immunizations up to date. - Infectious Disease History:: Denies. - Social history:: Smoking status: Patient reports the use of cigarette tobacco products, smokes one pack cigarettes per day. Screenin:08 [facility] Fall Risk Assessment (Adult) History of falling in the last 3 months, ha1 including since admission No falls in past 3 months (0 pts) Confusion or Disorientation No (0 pts) Intoxicated or Sedated No (0 pts) Impaired Gait No (0 pts) Mobility Assist Device Used No (0 pt) Altered Elimination No (0 pt) Score/Fall Risk Level 0 - 2 = Low Risk Oriented to surroundings, Maintained a safe environment, Educated pt \T\ family on fall prevention, incl call for assistance when getting out of bed, Hourly rounding (assess needs \T\ fall precautionary measures) done. Abuse screen: Denies threats or abuse. Denies injuries from another. Nutritional screening: No deficits noted. Tuberculosis screening: No symptoms or risk factors identified. Assessment: 19:08 General: Appears comfortable, Behavior is calm, cooperative. Pain: Complains of pain in ha1 right side of neck Pain radiates to back Pain currently is 7 out of 10 on a pain scale. Quality of pain is described as radiating, tender. Neuro: Level of Consciousness is awake, alert, obeys commands, Oriented to person, place, time, situation. Cardiovascular: Capillary refill < 3 seconds Patient's skin is warm and dry. Cardiovascular: Heart tones S1 S2 present Rhythm is sinus rhythm. Respiratory: Airway is patent Respiratory effort is even, unlabored, Respiratory pattern is regular, symmetrical, Breath sounds are clear bilaterally. GI: No signs and/or symptoms were reported involving the gastrointestinal system. : No signs and/or symptoms were reported regarding the genitourinary system. Derm: Skin is pink, warm \T\ dry. Musculoskeletal: Circulation, motion, and sensation intact. Range of motion: intact in all extremities. 21:00 Reassessment: Patient and/or family updated on plan of care and expected duration. Pain ha1 level reassessed. Patient is alert, oriented x 3, equal unlabored respirations, skin warm/dry/pink. 22:02 Reassessment: Patient and/or family updated on plan of care and expected duration. Pain ha1 level reassessed. Patient is alert, oriented x 3, equal unlabored respirations, skin warm/dry/pink. Vital Signs: 19:03 BP 134 / 70; Pulse 80; Resp 17; Temp 97.2; Pulse Ox 97% ; Weight 48.99 kg; Height 5 ft. ll1 3 in. ; Pain 10/10; 19:10 BP 136 / 71; Pulse 71; Resp 17 S; Pulse Ox 98% on R/A; ha1 20:00 BP 136 / 71; Pulse 75; Resp 17 S; Pulse Ox 100% on R/A; ha1 21:00 BP 150 / 63; Pulse 79; Resp 17 S; Pulse Ox 100% on R/A; ha1 22:13 BP 110 / 70; Pulse 99; Resp 17 S; Pulse Ox 99% on R/A; ha1 19:03 Body Mass Index 19.13 (48.99 kg, 160.02 cm) ll1 19:03 Pain Scale: Adult ll1 ED Course: 18:46 Patient arrived in ED. mg5 18:55 Arm band placed on Patient placed in an exam room, on a stretcher. ll1 19:00 Patient has correct armband on for positive identification. Placed in gown. Bed in low ha1 position. Call light in reach. Side rails up X 1. Adult w/ patient. 19:03 Jonathan Jerry MD is Attending Physician. ec2 19:04 Triage completed. ll1 19:33 Cynthia Rodas, KIAH is Primary Nurse. ha1 19:50 Missed attempt(s): 22 gauge in left antecubital area. Bleeding controlled, band aid ha1 applied, catheter tip intact. 20:43 XRAY Chest (1 view) In Process Unspecified. EDMS 20:51 Initial lab(s) drawn, by ED staff, sent to lab. Inserted saline lock: 22 gauge in left mb9 forearm, using aseptic technique. Blood collected. 22:15 Provided Education on: follow ups. ha1 22:15 No provider procedures requiring assistance completed. IV discontinued, intact, ha1 bleeding controlled, No redness/swelling at site. Pressure dressing applied. Administered Medications: 20:50 Drug: NS 0.9% IV 1000 ml IV at 1 bolus Per protocol; 1000 mL bolus Route: IV; Rate: 1 mb9 bolus; Site: left forearm; 22:17 Follow up: Response: No adverse reaction; IV Status: Completed infusion; IV Intake: ha1 1000ml 20:50 Drug: DuoNeb Nebulize (3:1) (2.5 mg - 0.5 mg) 3 ml Nebulizer once Route: Nebulizer; mb9 22:16 Follow up: Response: No adverse reaction; Marked relief of symptoms ha1 20:50 Drug: MethylPrednisoLONE IVP 125 mg IVP once Route: IVP; Site: left forearm; mb9 22:08 Follow up: Response: No adverse reaction ha1 22:07 Not Given (Patient Refused): [id number] mg PO once ha1 Medication: 22:16 VIS not applicable for this client. ha1 Intake: 22:17 IV: 1000ml; Total: 1000ml. ha1 Outcome: 22:04 Discharge ordered by . ec2 22:15 Discharged to home ambulatory, with family, ha1 22:15 Condition: stable 22:15 Discharge instructions given to patient, family, Instructed on discharge instructions, follow up and referral plans. medication usage, Demonstrated understanding of instructions, follow-up care, medications, Prescriptions given X 2, 22:17 Patient left the ED. ha1 Signatures: Dispatcher [employer] Milagros Mejia RN RN 1 Cynthia Rodas RN RN 1 Sonya Villalpando RN RN mb9 [place], [place] mg5 Jonathan Jerry MD MD 2
--- NOTE | 2024-01-08 08:52 | EDPHYS ---
Physician Documentation [facility] Name: Roberta Owens Age: 73 yrs Sex: Female : 1950 Arrival Date: 01/07/2024 Time: 18:40 Bed 15 Private MD: ED Physician Jonathan Jerry HPI: 01/06 19:47 This 73 yrs old Female presents to ER via Ambulatory with complaints of ec2 Shortness Of Breath, Weakness, Difficulty Swallowing, Sore Throat. 19:47 Patient arrives today for evaluation of generalized weakness as well as URI symptoms ec2 symptoms. Reports 1 week of symptoms, has been having cough and congestion as well as sore throat, body aches. Patient reports generalized weakness as well. Reports poor p.o. intake.. Historical: - Allergies: 18:55 Aspirin; ll1 18:55 Codeine; ll1 18:55 hydrochlorothiazide; ll1 - PMHx: 18:55 Anxiety; Back pain; Colitis; GERD; Hepatitis C; ll1 - Immunization history:: Adult Immunizations up to date. - Infectious Disease History:: Denies. - Social history:: Smoking status: Patient reports the use of cigarette tobacco products, smokes one pack cigarettes per day. ROS: 19:47 Constitutional: as per hpi ec2 Exam: 19:47 Constitutional: GEN: NAD Head: atraumatic Eyes: EOMI Ears: External ears are normal. ec2 Mouth: Posterior pharyngeal erythema without exudate appreciated. CV: regular rate LUNGS: no respiratory distress, occasional scattered wheeze, no significant work of breathing noted. ABD: non-distended SKIN: no evidence of rashes MSK: no evidence of trauma NEURO: moves all extremities equally Vital Signs: 19:03 BP 134 / 70; Pulse 80; Resp 17; Temp 97.2; Pulse Ox 97% ; Weight 48.99 kg; Height 5 ft. ll1 3 in. ; Pain 10/10; 19:10 BP 136 / 71; Pulse 71; Resp 17 S; Pulse Ox 98% on R/A; ha1 20:00 BP 136 / 71; Pulse 75; Resp 17 S; Pulse Ox 100% on R/A; ha1 21:00 BP 150 / 63; Pulse 79; Resp 17 S; Pulse Ox 100% on R/A; ha1 22:13 BP 110 / 70; Pulse 99; Resp 17 S; Pulse Ox 99% on R/A; ha1 19:03 Body Mass Index 19.13 (48.99 kg, 160.02 cm) ll1 19:03 Pain Scale: Adult ll1 MDM: 19:47 Data reviewed: vital signs. ED course: Patient arrives today for evaluation of URI ec2 symptoms symptoms. Examination markable for well-appearing nontoxic and vitals are reassuring examination. Will obtain lab work, chest x-ray, treat the patient symptoms and reassess. Differential diagnosis include viral infection, COPD exacerbation, pneumonia. 19:48 ED course: EKG obtained, independently reviewed and interpreted by me, shows normal ec2 sinus rhythm, rate of 71, no acute ST segment elevations, intervals are nonconcerning.. 19:58 Patient medically screened. ec2 21:05 ED course: CBC shows slight leukopenia with a WBC of 3.6, slight anemia with a ec2 hemoglobin of 10.3. Chest x-ray shows no acute intrathoracic process. Strep testing is negative. . 21:59 ED course: Metabolic profile shows appropriate electrolytes and renal function, urine ec2 studies are noninfectious, BNP, troponin are unremarkable, viral swab is negative. Will treat the patient for COPD exacerbation, will have the patient follow-up with primary care. Will start her on steroids and azithromycin. Return precautions given. . 01/06 19:14 Order name: Basic Metabolic Panel; Complete Time: 21:59 ec2 01/06 19:14 Order name: CBC with Diff; Complete Time: 21:05 ec2 01/06 19:14 Order name: NT PRO-BNP; Complete Time: 21:59 ec2 01/06 19:14 Order name: Troponin HS; Complete Time: 21:59 ec2 01/06 19:14 Order name: COVID-19/FLU A+B/RSV; Complete Time: 21:59 ec2 01/06 19:15 Order name: UAM; Complete Time: 21:59 ec2 01/06 19:46 Order name: Strep ec2 01/06 21:00 Order name: Throat Culture EDGA 01/06 19:14 Order name: XRAY Chest (1 view); Complete Time: 21:05 ec2 01/06 19:14 Order name: Cardiac monitoring; Complete Time: 20:03 ec2 01/06 19:14 Order name: EKG - Nurse/Tech; Complete Time: 20:03 ec2 01/06 19:14 Order name: IV Saline Lock; Complete Time: 20:51 ec2 01/06 19:14 Order name: Labs collected and sent; Complete Time: 20:51 ec2 01/06 19:14 Order name: O2 Per Protocol; Complete Time: 20:51 ec2 01/06 19:14 Order name: O2 Sat Monitoring; Complete Time: 20:51 ec2 Administered Medications: 20:50 Drug: NS 0.9% IV 1000 ml IV at 1 bolus Per protocol; 1000 mL bolus Route: IV; Rate: 1 mb9 bolus; Site: left forearm; 22:17 Follow up: Response: No adverse reaction; IV Status: Completed infusion; IV Intake: ha1 1000ml 20:50 Drug: DuoNeb Nebulize (3:1) (2.5 mg - 0.5 mg) 3 ml Nebulizer once Route: Nebulizer; mb9 22:16 Follow up: Response: No adverse reaction; Marked relief of symptoms ha1 20:50 Drug: MethylPrednisoLONE IVP 125 mg IVP once Route: IVP; Site: left forearm; mb9 22:08 Follow up: Response: No adverse reaction ha1 22:07 Not Given (Patient Refused): [id number] mg PO once ha1 Disposition Summary: 01/07/24 22:04 Discharge Ordered Notes: Location: Home ec2 Condition: Stable ec2 Diagnosis - Viral infection, unspecified ec2 - COPD/ Chronic obstructive pulmonary disease with (acute) exacerbation ec2 Followup: ec2 - With: Private Physician - When: - Reason: Re-evaluation by your physician Discharge Instructions: - Discharge Summary Sheet ec2 - Chronic Obstructive Pulmonary Disease Exacerbation, [id number] ec2 - Viral Illness, Adult ec2 Forms: - Medication Reconciliation Form ec2 - Antibiotic Education ec2 - Prescription Opioid Use ec2 - Patient Portal Instructions ec2 - Leadership Thank You Letter ec2 Prescriptions: - Zithromax Z-Wild 250 mg Oral Tablet - take 1 tablet ORAL route as directed for 5 days Day 1 - take two (2) tablets ec2 one time. Day 2, 3, 4 , 5 take one (1) tablet once daily.; 6 tablet; Refills: 0, Product Selection Permitted - Prednisone 20 mg Oral Tablet - take 2 tablets ORAL route once daily for 5 days; 10 tablet; Refills: 0, Product ec2 Selection Permitted Signatures: Dispatcher [employer] Milagros Mejia RN RN ll1 Sonya Villalpando RN RN mb9 Jonathan Jerry MD MD ec2 Cynthia Rodas RN ha1 Corrections: (The following items were deleted from the chart) 19:15 19:15 Urinalysis W/Microscopic+U.LAB.BRZ ordered. AMBERLY GAMING
[2024-01-08 10:59] VITALS: TEMP 97.2
[2024-01-08 11:26] VITALS: BP 110/70; O2SAT 99
--- NOTE | 2024-01-08 13:03 | EKG ---
Test Date: 2024-01-07 Test Time: 19:44:36 Cat Swamper: CLEMENTINE MEASUREMENT RESULTS: Intervals: Rate: 71 ID: [id number] QRSD: 80 QT: 372 QTc: 404 [place]: P: 84 ID: [id number] QRS: 73 T: -72 INTERPRETIVE STATEMENTS: Normal sinus rhythm T wave abnormality, consider inferolateral ischemia Abnormal ECG Compared to ECG 12/05/2022 17:32:53 T-wave abnormality now present ST (T wave) deviation no longer present Possible ischemia still present Electronically Signed On 01-08-24 13:01:52 CDT by Josiah Echevarria
== END 2024-01-07 22:17 | disposition home or self-care (01) ==
LOC: ER 18:40
DX: B34.9 Viral infection, unspecified (principal); J44.1 Chronic obstructive pulmonary disease with (acute) exacerbation; Z11.52 Encounter for screening for COVID-19; F17.210 Nicotine dependence, cigarettes, uncomplicated
CPT/HCPCS: 96361; 93005; 87070; 85025; 81001; 80048; 36415; 87081; 84484; 83880; 0241U; 71045; 94640; 96374; 99285; J7613; J7644; J2919; J7030

== ENCOUNTER 2024-01-10 21:03 | Inpatient (IN) | payer OTHER ==
--- NOTE | 2024-01-10 21:48 | RAD REPORT ---
EXAM DESCRIPTION: RAD - Femur Right - 01/10/2024 9:38 pm CLINICAL HISTORY: PAIN COMPARISON: Pelvis dated 01/10/2024 FINDINGS/IMPRESSION: Right subcapital femoral neck fracture which is slightly displaced. No other fr actures identified. No dislocation.
--- NOTE | 2024-01-10 21:49 | RAD REPORT ---
EXAM DESCRIPTION: RAD - Pelvis - 01/10/2024 9:38 pm CLINICAL HISTORY: PAIN COMPARISON: Pelvis Angio dated 04/12/2023 FINDINGS/IMPRESSION: Slightly impacted right subcapital femoral neck fracture. No dislocation. No ot her fractures identified.
--- NOTE | 2024-01-10 22:06 | ER ---
Nurse's Notes [facility] Name: Roberta Owens Age: 73 yrs Sex: Female : 1950 Arrival Date: 01/10/2024 Time: 21:03 Bed 8 Private MD: Diagnosis: Right subcapital femoral neck fracture Presentation: 01/09 21:22 Chief complaint: Patient states: R hip pain after falling from standing position 3 days ss ago. Coronavirus screen: Client denies travel out of the [place] in the last 14 days. Ebola Screen: Patient denies exposure to infectious person. Patient denies travel to an Ebola-affected area in the 21 days before illness onset. Initial Sepsis Screen: Does the patient meet any 2 criteria? No. Patient's initial sepsis screen is negative. Does the patient have a suspected source of infection? No. Patient's initial sepsis screen is negative. Risk Assessment: Do you want to hurt yourself or someone else? Patient reports no desire to harm self or others. Onset of symptoms was January 07, 2024. 21:22 Method Of Arrival: Ambulatory ss 21:22 Acuity: PHILIP 3 ss Triage Assessment: 21:23 General: Appears comfortable, Pt is laughing and joking with ED staff during triage ss with occasional grimaces and guarding of R leg. Behavior is calm, cooperative, Denies fever, feeling ill. Pain: Complains of pain in R leg. Neuro: Level of Consciousness is awake, alert, obeys commands. Derm: Skin is pink, warm \\T\\ dry. normal. Historical: - Allergies: 21:23 Aspirin; ss 21:23 Codeine; "large doses"; ss 21:23 hydrochlorothiazide; ss - PMHx: 21:23 Anxiety; Back pain; Colitis; GERD; Hepatitis C; ss - Immunization history:: Client reports receiving the 2nd dose of the Covid vaccine. - Infectious Disease History:: Denies. - Social history:: Smoking status: Patient reports the use of cigarette tobacco products, 1-2 ppd. Screenin:07 [facility] ED Fall Risk Assessment (Adult) History of falling in the last 3 months, rg5 including since admission Yes- single mechanical fall (1 pt) Confusion or Disorientation No (0 pts) Intoxicated or Sedated No (0 pts) Impaired Gait No (0 pts) Mobility Assist Device Used No (0 pt) Altered Elimination No (0 pt) Score/Fall Risk Level 0 - 2 = Low Risk. Abuse screen: Denies threats or abuse. Nutritional screening: No deficits noted. Tuberculosis screening: No symptoms or risk factors identified. Never had TB. Assessment: 22:51 General: Appears uncomfortable. Pain: Complains of pain in right leg Pain radiates to rg5 right hip Pain currently is 8 out of 10 on a pain scale. Quality of pain is described as aching. Neuro: Level of Consciousness is awake, alert, obeys commands. Cardiovascular: Capillary refill < 3 seconds. Respiratory: Airway is patent. GI: Abdomen is flat, : No signs and/or symptoms were reported regarding the genitourinary system. EENT: No deficits noted. Derm: Skin is intact, Skin is dry, Skin is normal, Skin temperature is warm. Musculoskeletal: Range of motion: intact in right leg. Vital Signs: 21:22 BP 175 / 72; Pulse 86; Resp 16; Temp 98.2(O); Pulse Ox 100% on R/A; Weight 48.99 kg; ss Height 5 ft. 3 in. ; Pain 8/10; 21:35 BP 161 / 78; Pulse 90; Resp 18; Temp 98; Pulse Ox 100% ; Pain 7/10; rg5 23:10 BP 146 / 71; Pulse 81; Resp 18; Temp 98; Pulse Ox 99% ; Pain 4/10; rg5 01/10 00:11 BP 124 / 80; Pulse 77; Resp 18; Pulse Ox 99% ; Pain 4/10; rg5 01/09 21:22 Body Mass Index 19.13 (48.99 kg, 160.02 cm) 01/09 21:22 Pain Scale: Adult ss 21:35 Pain Scale: Adult rg5 23:10 Pain Scale: Adult rg5 01/10 00:11 Pain Scale: Adult rg5 [place] Coma Score: 01/09 23:10 Eye Response: spontaneous(4). Motor Response: obeys commands(6). Verbal Response: rg5 oriented(5). Total: 15. ED Course: 21:13 Patient arrived in ED. ss 21:13 [facility] kb 21:13 Shoaib Johansen MD is Attending Physician. kb 21:23 Triage completed. ss 21:23 Arm band placed on right wrist. ss 21:40 Femur Right XRAY In Process Unspecified. EDMS 21:40 Pelvis XRAY In Process Unspecified. EDMS 22:05 Tawanda Mckeon MD is Hospitalizing Provider. kb 23:07 Patient has correct armband on for positive identification. Fall risk band placed. rg5 Placed in gown. Bed in low position. Side rails up X2. Provided Education on: post ER care done. 23:07 No provider procedures requiring assistance completed. Inserted saline lock: 24 gauge rg5 in right forearm, using aseptic technique. 01/10 00:27 Patient admitted, IV remains in place. rg5 Administered Medications: 01/09 22:43 Drug: morphine IVP or IV 2 mg IVP once over 4 mins Route: IVP; Infused Over: 4 mins; rg5 Site: right antecubital; 23:17 Follow up: Response: Pain is decreased rg5 22:43 Drug: Ondansetron IVP 4 mg IVP once; over 2 minutes Route: IVP; Site: right antecubital;rg5 23:17 Follow up: Response: No adverse reaction rg5 Medication: 23:07 VIS not applicable for this client. rg5 Outcome: 22:05 Decision to Hospitalize by Provider. kb 01/10 00:25 Admitted to Med/surg family with patient, via stretcher, rg5 Condition: stable Instructed pilot control operator first before getting out of bed 00:30 Patient left the ED. jb4 Signatures: Dispatcher [employer] EDIN Paulina Warner, AMBER-C RECEPTION INTERVIEWER-Trupti Rankin RN RN Maikol Jones RN RN jb4 Owen Lindo, KIAH RN rg5 Corrections: (The following items were deleted from the chart) 01/09 22:50 22:48 BP 161 / 78; Pulse 90bpm; Resp 18bpm; Pulse Ox 100%; Temp 98F; Pain 7/10, Adult; rg5 rg5
--- NOTE | 2024-01-10 22:06 | EDPHYS ---
Physician Documentation [facility] Name: Roberta Owens Age: 73 yrs Sex: Female : 1950 Arrival Date: 01/10/2024 Time: 21:03 Bed 8 Private MD: ED Physician Shoaib Johansen HPI: 01/09 23:34 This 73 yrs old Female presents to ER via Ambulatory with complaints of Hip Pain. kb 23:34 Pt is a 73 year old female who presents for right hip pain that started after a fall 3 kb days ago. States she was getting out of the car, tripped on her purse and fell onto right hip. States the pain hasn't gotten any better and she is unable to bear weight so she decided to come in. . Historical: - Allergies: 21:23 Aspirin; ss 21:23 Codeine; "large doses"; ss 21:23 hydrochlorothiazide; ss - PMHx: 21:23 Anxiety; Back pain; Colitis; GERD; Hepatitis C; ss - Immunization history:: Client reports receiving the 2nd dose of the Covid vaccine. - Infectious Disease History:: Denies. - Social history:: Smoking status: Patient reports the use of cigarette tobacco products, 1-2 ppd. ROS: 23:33 Constitutional: As per HPI kb Exam: 23:33 Constitutional: This is a well developed, well nourished patient who is awake, alert, kb and in no acute distress. Head/Face: Normocephalic, atraumatic. ENT: Moist Mucous membranes Cardiovascular: Regular rate Respiratory: Respirations even and unlabored. No increased work of breathing. Talking in full sentences Abdomen/GI: Soft, non-tender. No distention Skin: Warm, dry with normal turgor. Normal color. Neuro: Awake and alert, GCS 15, oriented to person, place, time, and situation. Moves all extremities. Normal gait. 23:33 Musculoskeletal/extremity: Extremities: grossly normal except: noted in the right hip: pain, tenderness, ROM: limited active range of motion due to pain, Circulation is intact in all extremities. Sensation intact. Weight bearing: can bear weight with assistance only, Vital Signs: 21:22 BP 175 / 72; Pulse 86; Resp 16; Temp 98.2(O); Pulse Ox 100% on R/A; Weight 48.99 kg; ss Height 5 ft. 3 in. ; Pain 8/10; 21:35 BP 161 / 78; Pulse 90; Resp 18; Temp 98; Pulse Ox 100% ; Pain 7/10; rg5 23:10 BP 146 / 71; Pulse 81; Resp 18; Temp 98; Pulse Ox 99% ; Pain 4/10; rg5 01/10 00:11 BP 124 / 80; Pulse 77; Resp 18; Pulse Ox 99% ; Pain 4/10; rg5 01/09 21:22 Body Mass Index 19.13 (48.99 kg, 160.02 cm) ss 01/09 21:22 Pain Scale: Adult ss 21:35 Pain Scale: Adult rg5 23:10 Pain Scale: Adult rg5 01/10 00:11 Pain Scale: Adult rg5 [place] Coma Score: 01/09 23:10 Eye Response: spontaneous(4). Motor Response: obeys commands(6). Verbal Response: rg5 oriented(5). Total: 15. MDM: 21:14 Patient medically screened. kb 22:04 Differential diagnosis: hip fracture, intertrochanteric fracture, femoral neck kb fracture, strain. Data reviewed: vital signs, nurses notes. Consideration of Admission/Observation Patient was admitted/placed on observation. Escalation of care including admission/observation considered. Management of patient was discussed with the following: Hospitalist: Dr Mckeon accepts pt for admission. Typesetters Printer: Dr Watson accepts pt for consult. Wants NPO after midnight. Historians other than the Patient: EMS: [facility]. Counseling: I had a detailed discussion with the patient and/or guardian regarding the historical points, exam findings, and any diagnostic results supporting the discharge/admit diagnosis, radiology results, the need for further work-up and treatment in the hospital. 01/09 22:00 Order name: CBC with Diff; Complete Time: 23:33 kb 01/09 22:00 Order name: Basic Metabolic Panel; Complete Time: 23:44 kb 01/09 22:59 Order name: Urinalysis w/ reflexes EDMS 01/09 22:59 Order name: CBC with Automated Diff EDMS 01/09 22:59 Order name: CBC with Automated Diff EDMS 01/09 22:59 Order name: Comprehensive Metabolic Panel EDMS 01/09 22:59 Order name: Comprehensive Metabolic Panel EDMS 01/09 21:14 Order name: Femur Right XRAY; Complete Time: 21:51 kb 01/09 21:14 Order name: Pelvis XRAY; Complete Time: 21:51 kb 01/09 22:59 Order name: CONS Physician Consult EDWA 01/09 22:00 Order name: IV Start; Complete Time: 22:44 kb Administered Medications: 22:43 Drug: morphine IVP or IV 2 mg IVP once over 4 mins Route: IVP; Infused Over: 4 mins; rg5 Site: right antecubital; 23:17 Follow up: Response: Pain is decreased rg5 22:43 Drug: Ondansetron IVP 4 mg IVP once; over 2 minutes Route: IVP; Site: right antecubital;rg5 23:17 Follow up: Response: No adverse reaction rg5 Disposition Summary: 01/10/24 22:05 Hospitalization Ordered Notes: Hospitalization Status: Inpatient Admission kb Provider: Tawanda Mckeon Location: Telemetry/MedSurg (Inpatient) kb Condition: Stable kb Problem: new kb Symptoms: are unchanged kb Bed/Room Type: Standard Room Assignment: [facility](01/10/24 23:05) vk Diagnosis - Right subcapital femoral neck fracture kb Forms: - Medication Reconciliation Form kb - SBAR form kb - Leadership Thank You Letter kb Signatures: Dispatcher [employer] [facility] Paulina Warner FNP-C FNP-Felixb Trupti Shah, RN RN Idalmis Dodson Rommel, RN RN rg5 Corrections: (The following items were deleted from the chart) 23:05 22:05 kb vk
[2024-01-10] MEDS ORDERED: ONDANSETRON 4 MG/2 ML VIAL ONE (22:35)
[2024-01-10] MEDS ORDERED: MORPHINE 4 MG/ML SYR ONE (22:37)
[2024-01-10] MEDS ORDERED: ACETAMINOPHEN 325 MG TABLET PO PRN (22:53)
--- NOTE | 2024-01-10 23:00 | P.HP ---
Certification for Inpatient Patient admitted to: Inpatient With expected LOS: >2 Midnights Practitioner: I am a practitioner with admitting privileges, knowledge of patient current condition, hospital course, and medical plan of care. Services: Services provided to patient in accordance with Admission requirements found in Title 42 Section 412.3 of the Code of Federal Regulations Patient History Date of Service: 01/10/24 Reason for admission: Hip Pain History of Present Illness: 73-year-old female with past medical history of Anxiety; Back pain; Colitis; GERD; Hepatitis C who suffered a fall from standing position 3 days ago and has been having pain right hip which has been progressively getting worse and was brought to ER. Denies any fever or chills. No nausea vomiting or diarrhea. Denies any headache. Patient denies any syncope. No palpitations. Denies any chest pain or shortness of breath. The patient was assessed in the ER and was found to have right hip fracture and is admitted for further management Allergies codeine [Codeine] Allergy (Severe, Verified 12/04/17 01:16) Itching/Hives/Rash aspirin Allergy (Mild, Verified 12/04/17 01:16) Nausea/Vomiting Home medications list reviewed: Yes Home Medications: ALPRAZolam [Xanax*] 1 mg PO TID PRN 12/04/17 Thyroid Tab [[place] Thyroid*] 30 mg PO DAILY 12/04/17 Albuterol 1 puff IH PRN PRN 12/05/22 Amlodipine [Norvasc*] 5 mg PO DAILY 12/05/22 Hydrocodone Bit/Acetaminophen [Hydrocodon-Acetaminoph 7.5-325] 1 tab PO TID PRN 12/05/22 Pantoprazole [Protonix Tab*] 40 mg PO BID 30 Days #60 tab 12/06/22 - Past Medical/Surgical History Diabetic: No Past Medical History: Reviewed- Non-Contributory -: colitis -: Hepatitis C- treatment completed -: Chronic back pain -: anxiety -: tobacco abuse -: IBS -: osteoartritis Past Surgical History: Reviewed- Non-Contributory -: hysterectomy -: lumpectomy L breast- fatty tumor -: neck surgery -: R index finger reattachment -: tonsillectomy Psychosocial/ Personal History: Pt lives at home with family. - Family History Family History: Reviewed- Non-Contributory - Family History Father -: Heart disease, Cancer Notes: liver and pancrease cancer Mother -: Heart disease, Diabetes, Stroke, Cancer Notes: pancreatic Sister -: Cancer Notes: breast cancer - Social History Smoking Status: Never smoker Alcohol use: No CD- Drugs: No Caffeine use: Yes Review of Systems 10-point ROS is otherwise unremarkable Physical Examination - Vital Signs Temperature: 97.8 F Blood Pressure: 138/68 Pulse: 76 Respirations: 18 Pulse Ox (%): 93 - Physical Exam General: Alert, In no apparent distress, Oriented x3 HEENT: Atraumatic, Normocephalic Neck: Supple, 2+ carotid pulse no bruit Respiratory: Clear to auscultation bilaterally, Normal air movement Cardiovascular: Regular rate/rhythm, Normal S1 S2 Capillary refill: <2 Seconds Gastrointestinal: Soft and benign, W/out hepatosplenomegaly, No tenderness Musculoskeletal: No clubbing, Tenderness Integumentary: No rashes, No significant lesion Neurological: Normal strength at 5/5 x4 extr, Normal tone, Cranial nerves 3-12 intact, Normal reflexes 2+, Normal affect Lymphatics: No axilla or inguinal lymphadenopathy Assessment and Plan - Problems (Diagnosis) (1) Hip fracture Current Visit: Yes Status: Acute Plan: Right hip fracture Pain control Orthopedic consulted Will keep n.p.o. for now IV fluids Possible going to the OR tomorrow Anxiety Back pain Continue home medications and titrate as needed Pain control GERD Continue Protonix Hepatitis C Monitor LFTs closely GI/DVT prophylaxis Advanced directive full code - Advance Directives Does patient have a Living Will: No Does patient have a Durable POA for Healthcare: No
[2024-01-10 23:32] LABS: Absolute Eosinophils 0.1 K/uL (0-0.5); Absolute Lymphocytes (CBC) 1.5 K/uL (0.7-4.9); Absolute Monocytes 0.3 K/uL (0.1-1.3); Absolute Neutrophil 3.2 K/uL (1.8-8.0); Basophils % 0.7 % (0-1.3); Hematocrit 32.7 % (36.0-45.0); Hemoglobin 10.5 g/dL (12.0-15.0); Lymphocytes % 29.5 % (15.3-44.8); MCH 26.8 pg (27.0-35.0); MCHC 32.3 g/dL (32.0-36.0); MPV 8.4 fL (7.6-11.3); Monocytes % 5.8 % (3.3-12.3); Nucleated Red Blood Cells % 0.1 % (0-0); Platelets 176 thou/uL (152-406); RBC Red Blood Cell Count 3.94 M/uL (3.86-4.86); Red Cell Distribution Width 16.6 % (12.1-15.2)
[2024-01-10 23:43] LABS: Anion Gap 9.3 mEq/L (5.0-15.0); Potassium 3.3 mEq/L (3.5-5.1)
[2024-01-10] MEDS ORDERED: MORPHINE 2 MG/ML SYR IV PRN (23:48)
[2024-01-11] MEDS: NA CHLORIDE 0.9% 1,000 ML IV SCH (01:11)
[2024-01-11] MEDS: HYDROCODONE/APAP 10/325 TAB PO PRN (01:35)
[2024-01-11 01:36] VITALS: BMI 19.1
[2024-01-11] MEDS: MORPHINE 4 MG/ML SYR IV PRN ×2 (02:36→15:06)
[2024-01-11 03:42] LABS: Absolute Eosinophils 0.1 K/uL (0-0.5); Absolute Lymphocytes (CBC) 1.7 K/uL (0.7-4.9); Absolute Monocytes 0.4 K/uL (0.1-1.3); Absolute Neutrophil 2.9 K/uL (1.8-8.0); Basophils % 0.5 % (0-1.3); Eosinophils % 1.5 % (0-4.4); Hematocrit 28.9 % (36.0-45.0); Hemoglobin 9.4 g/dL (12.0-15.0); Lymphocytes % 32.3 % (15.3-44.8); MCH 27.1 pg (27.0-35.0); MCHC 32.7 g/dL (32.0-36.0); MCV 82.9 fL (80-100); MPV 8.4 fL (7.6-11.3); Monocytes % 8.7 % (3.3-12.3); Nucleated Red Blood Cells % 0.1 % (0-0); Platelets 160 thou/uL (152-406); RBC Red Blood Cell Count 3.48 M/uL (3.86-4.86); Red Cell Distribution Width 15.9 % (12.1-15.2)
[2024-01-11 03:54] LABS: Albumin 3.2 g/dL (3.4-5.0); Albumin/Globulin Ratio 0.9 (1.1-1.8); Anion Gap 8.6 mEq/L (5.0-15.0); Bilirubin Total 0.3 mg/dL (0.2-1.0); Globulin 3.4 g/dL (2.3-3.5); Potassium 3.6 mEq/L (3.5-5.1); Protein, Total 6.6 g/dL (6.4-8.2)
[2024-01-11] MEDS: ONDANSETRON 4 MG/2 ML VIAL IV PRN (07:51)
[2024-01-11] MEDS: ENOXAPARIN 40 MG/0.4 ML SQ SCH (09:00)
[2024-01-11 09:05] LABS: Specific Gravity 1.005 (1.005-1.030); Urine Bilirubin NEGATIVE (Negative); Urine Blood Negative (Negative); Urine Clarity Clear (Clear); Urine Color Colorless (Yellow); Urine Glucose NEGATIVE (Negative); Urine Ketones NEGATIVE (Negative); Urine Microscopic Reflex YN NO UMIC; Urine Nitrite NEGATIVE (Negative); Urine Protein NEGATIVE (Negative); Urine Urobilinogen Normal (Normal); Urine pH 5.5 (5.0-7.0)
[2024-01-11] MEDS: MORPHINE 4 MG/ML SYR IV ONE (10:24)
[2024-01-11] MEDS: KCL 20 MEQ/100 mL IVPB 20 MEQ/100 ML BAG IV SCH (10:42)
[2024-01-11] MEDS: ALBUTEROL 2.5 MG/3 ML NEB SOL NEB PRN (14:12)
[2024-01-11] MEDS: SUGAMMADEX SODIUM 200 MG/2 ML VIAL IV ONE (14:47)
[2024-01-11] MEDS: SUCCINYLCHOLINE 20 MG/ML (10 ML) IV ONE (14:48)
[2024-01-11] MEDS ORDERED: LIDOCAINE 1% MPF 5 ML VIAL ONE (14:57)
[2024-01-11] MEDS ORDERED: NS 0.9% VIAL 20 ML ONE (14:57)
[2024-01-11] MEDS ORDERED: Phenylephrine HCl 10 MG/ML 1 ML VIAL ONE (14:57)
[2024-01-11] MEDS ORDERED: MIDAZOLAM HCL 2 MG/2 ML INJ ONE (14:58)
[2024-01-11] MEDS ORDERED: ROCURONIUM 50 MG/5 ML VIAL IV ONE (14:58)
[2024-01-11] MEDS ORDERED: FENTANYL CITR 100 MCG/2 ML ONE (14:58)
[2024-01-11] MEDS ORDERED: propofoL 200 MG/20 ML VIAL IV ONE (14:58)
--- NOTE | 2024-01-11 15:10 | P.PN ---
Subjective Date of Service: 01/11/24 Chief Complaint: Hip Pain Patient reports pain in the right hip with movement. She denies shortness of breath. She denies any chest pain or palpitation. Physical Examination - Vital Signs Temperature: 98.0 F Blood Pressure: 128/58 Pulse: 74 Respirations: 16 Pulse Ox (%): 95 Assessment And Plan - Plan Physical Exam General: Alert, In no apparent distress, Oriented x3 HEENT: Atraumatic, Normocephalic Neck: Supple, no elevated JVD. Respiratory: Clear to auscultation bilaterally, Normal air movement Cardiovascular: Regular rate/rhythm, Normal S1 S2 Gastrointestinal: Soft and benign, W/out hepatosplenomegaly, No tenderness Musculoskeletal: No clubbing, Integumentary: No rashes, No significant lesion Neurological: Normal strength at 5/5 x4 extr, Cranial nerves 3-12 intact, Normal reflexes 2+, Normal affect Lymphatics: No axilla or inguinal lymphadenopathy Diagnosis Right femoral subcapital fracture Pain control Orthopedic consulted-Dr. Watson is planning ORIF today. NPO IV fluids Anxiety disorder Continue home medications. GERD Continue Protonix Hepatitis C Outpatient management DVT prophylaxis: lovenox Advanced directive: full code
[2024-01-11] MEDS: Ringers Lactate 1,000 ML IV ONE (16:24)
[2024-01-11] MEDS: TRANEXAMIC ACID 1,000 MG/10 ML VIAL IV ONE (16:38)
[2024-01-11] MEDS: CEFAZOLIN SODIUM 2 GM/VIAL ONE (17:02)
[2024-01-11] MEDS ORDERED: dexAMETHasone 4 MG/ML VIAL ONE (17:54)
[2024-01-11] MEDS ORDERED: ONDANSETRON 4 MG/2 ML VIAL ONE (17:54)
[2024-01-11] MEDS ORDERED: HYDROCODONE/APAP 5/325 MG TAB PO PRN (18:24)
[2024-01-11] MEDS: HYDROMORPHONE HCL 2 MG/ML inj ONE ×2 (18:29→18:50)
--- NOTE | 2024-01-11 18:51 | RAD REPORT ---
EXAM DESCRIPTION: RAD - Pelvis - 01/11/2024 6:42 pm CLINICAL HISTORY: Right hip surgery FINDINGS: Right hip arthroplasty. Prosthesis is in good position. No fracture or dislocation
[2024-01-11] MEDS ORDERED: NACHLORIDE 0.45% 1,000 ML IV SCH (19:00)
[2024-01-11] MEDS: ENSURE SURGERY 237 ML CAN PO SCH (20:20)
--- NOTE | 2024-01-12 01:08 | CON ---
Reason For Consultation: Right femoral neck fracture. History Of Present Illness: Ms. Owens is a 73-year-old white woman, complains of pain in the right hip after a fall 3 days ago. She has been unable to weight bear. Thought it was a bad bruise. Eval uation in the ER revealed to be a femoral neck fracture. She was preoperatively clearance for her ri ght hip hemiarthroplasty. Past Medical History: Significant for lifelong smoking; otherwise, no significant event which should preclude surgery. Plan: Will be to proceed with a right hemiarthroplasty after medical clearance. SYLWIA/JESICA Voice ID: [id number] Report ID: [id number]
[2024-01-12] MEDS: CEFAZOLIN 1 GM in NA CHLORIDE 0.9% 50 ML IVPB SCH (01:30)
[2024-01-12] MEDS: HYDROMORPHONE HCL 1 MG/ML INJ ONE (03:37)
[2024-01-12] MEDS: HYDROMORPHONE HCL 1 MG/ML INJ IV ONE (03:58)
--- NOTE | 2024-01-12 04:06 | OP ---
Surgeon: Harsh Watson MD Preoperative Diagnosis: Right hip femoral neck fracture. Postoperative Diagnosis: Right hip femoral neck fracture. Procedure Performed: Right hip uncemented bipolar arthroplasty. Orthopedic Tech: None. Anesthesia: General. Disposition: Recovery room, stable. Estimated Blood Loss: Minimal. Operative Report In Detail: The patient was taken to the operative suite, placed in supine position, induced anesthesia. Right hip was prepped and draped in usual sterile fashion. Patient was positio sofya on the lateral side of her posterior approach to the hip. Skin and subcutaneous tissues were dis sected sharply. Hemostasis was verified. Tensor fascia le split. External rotators were elevated subperiosteally from the attachment of piriformis fossa. Tagged for later reattachment. Fractured femoral neck delivered, osteotomized 1 fingerbreadth above the lesser trochanter. A 41 head was then delivered. Ream and broach technique for a 12 stem standard was appropriate, standard offset was al so appropriate. Permanent implants were placed. A layered closure including repair of drill holes i n bone. CM/MODL Voice ID: [id number] Report ID: [id number]
[2024-01-12] MEDS: ASPIRIN 325 MG TAB PO SCH (04:07)
[2024-01-12] MEDS: HYDROCODONE/APAP 10/325 TAB PO PRN (07:42)
--- NOTE | 2024-01-12 13:02 | P.PN ---
Subjective Date of Service: 01/12/24 Chief Complaint: Hip Pain Status post right hip ORIF/partial replacement. Patient reports pain in the right hip. She ambulated with physical therapy today Physical Examination - Vital Signs Temperature: 98.7 F Blood Pressure: 158/89 Pulse: 88 Respirations: 16 Pulse Ox (%): 94 Assessment And Plan - Plan Physical Exam General: Alert, In no apparent distress, Oriented x3 Neck: Supple, no elevated JVD. Respiratory: Clear to auscultation bilaterally, Normal air movement Cardiovascular: Regular rate/rhythm, Normal S1 S2 Gastrointestinal: Soft and benign, W/out hepatosplenomegaly, No tenderness Musculoskeletal: No clubbing, Integumentary: No rashes, No significant lesion Neurological: Normal strength at 5/5 x4 extr, Cranial nerves 3-12 intact, Normal reflexes 2+, Normal affect Diagnosis Right femoral subcapital fracture Status post ORIF/partial hip replacement. Orthopedic Dr. Watson input appreciated Pain control Continue PT-daily assessment Social service consulted for disposition Discontinue IV fluids COPD exacerbation Acute on chronic respiratory failure with hypoxia Scheduled nebs. Wean oxygen as tolerated. Incentive spirometry Anxiety disorder Continue home medications. GERD Continue Protonix Hepatitis C Outpatient management DVT prophylaxis: lovenox Advanced directive: full code
[2024-01-12] MEDS: ALPRAZOLAM 1 MG TABLET PO PRN (17:04)
[2024-01-12] MEDS: PANTOPRAZOLE 40MG TABLET PO SCH (21:04)
[2024-01-13 05:39] LABS: Hematocrit 26.2 % (36.0-45.0); Hemoglobin 8.5 g/dL (12.0-15.0)
[2024-01-13] MEDS: LEVOTHYROXINE SOD 0.025 MG TAB PO SCH (06:42)
[2024-01-13] MEDS: AMLODIPINE 5 MG TAB PO SCH (09:55)
--- NOTE | 2024-01-13 10:31 | P.PN ---
Subjective Date of Service: 01/13/24 Chief Complaint: Hip Pain patient slightly confused poor pain control as expected patient is senior living opiate abuser remain n-v intact will change first dressing at one week post -op Physical Examination - Vital Signs Temperature: 99.5 F Blood Pressure: 119/60 Pulse: 90 Respirations: 24 Pulse Ox (%): 98
[2024-01-13] MEDS ORDERED: ALBUTEROL 2.5 MG/3 ML NEB SOL NEB PRN (10:50)
--- NOTE | 2024-01-13 12:47 | P.PN ---
Subjective Date of Service: 01/13/24 Chief Complaint: Hip Pain Status post right hip ORIF/partial replacement. No issues overnight. Patient stated her pain is better Physical Examination - Vital Signs Temperature: 98.0 F Blood Pressure: 122/51 Pulse: 97 Respirations: 20 Pulse Ox (%): 93 Assessment And Plan - Plan Physical Exam General: Alert, In no apparent distress, Oriented x3 Neck: Supple, no elevated JVD. Respiratory: Clear to auscultation bilaterally, Normal air movement Cardiovascular: Regular rate/rhythm, Normal S1 S2 Gastrointestinal: Soft and benign, No tenderness Musculoskeletal: No clubbing, Integumentary: No rashes, No significant lesion Neurological: Normal strength at 5/5 x4 extr, normal affect. Diagnosis Right femoral subcapital fracture Status post ORIF/partial hip replacement. Orthopedic Dr. Watson is following Analgesics as needed. Continue PT-daily assessment Social service consulted for disposition COPD exacerbation Acute on chronic respiratory failure with hypoxia Scheduled nebs. Wean oxygen as tolerated. Incentive spirometry Anxiety disorder Continue home medications. GERD Continue Protonix Hepatitis C Outpatient management Acute blood loss anemia Monitor H&H and transfuse as needed for hemoglobin less than 7. DVT prophylaxis: lovenox Advanced directive: full code
[2024-01-14 06:48] LABS: Hemoglobin 8.2 g/dL (12.0-15.0)
--- NOTE | 2024-01-14 12:25 | P.PN ---
Subjective Date of Service: 01/14/24 Chief Complaint: Hip Pain Patient has no new complaints. She denies pain at the moment. No issues overnight. Physical Examination - Vital Signs Temperature: 97.8 F Blood Pressure: 109/43 Pulse: 78 Respirations: 16 Pulse Ox (%): 93 Assessment And Plan - Plan Physical Exam General: Alert, In no apparent distress, Oriented x3 Neck: Supple, no elevated JVD. Respiratory: Clear to auscultation bilaterally, Normal air movement Cardiovascular: Regular rate/rhythm, Normal S1 S2 Gastrointestinal: Soft and benign, No tenderness Musculoskeletal: No clubbing, Integumentary: No rashes, No significant lesion Neurological: Normal strength at 5/5 x4 extr, normal affect. Diagnosis Right femoral subcapital fracture Status post ORIF/partial hip replacement. Orthopedic Dr. Watson is following Analgesics as needed. Patient has declining to go to rehab and would like to go home with home health. Ongoing PT evaluate Social service consulted to arrange for home health with therapy. COPD exacerbation Acute on chronic respiratory failure with hypoxia Clinically improved. Patient is tolerating room air Nebs as needed Incentive spirometry Anxiety disorder Continue home medications. GERD Continue Protonix Hepatitis C Outpatient management Acute blood loss anemia Monitor H&H and transfuse as needed for hemoglobin less than 7. DVT prophylaxis: lovenox Advanced directive: full code
[2024-01-14] MEDS: POTASSIUM CL SA 10 MEQ TAB PO ONE (13:02)
[2024-01-15 08:16] LABS: Hematocrit 27.1 % (36.0-45.0); Hemoglobin 8.8 g/dL (12.0-15.0)
[2024-01-15 08:24] LABS: Anion Gap 6.9 mEq/L (5.0-15.0); Potassium 3.9 mEq/L (3.5-5.1)
[2024-01-15 09:34] VITALS: O2SAT 98
--- NOTE | 2024-01-15 13:32 | P.DS ---
Admission Date: 01/10/24 Discharge Date: 01/15/24 Disposition: DC HOME/HOME HEALTH CARE Reason for Admission: Hip Pain Hospital Course: 73-year-old female with past medical history of Anxiety; Back pain; Colitis; GERD; Hepatitis C, known cigarette smoker fell from standing position 3 days, developed right hip pain pain right hip, presented to the ED where images demonstrated right subcapital is femoral fracture. Orthopedic surgeon Dr. Watson was contacted and patient admitted for further management. Patient was admitted to the medical floor, right hip pain managed with opioids. She was evaluated by orthopedic Dr. Watson who performed right hip bipolar arthroplasty. Patient was monitored postop, evaluated by physical therapy. She was able to ambulate 250 ft with a walker. She declined skilled or inpatient rehab and opted to go home with home health. She experienced shortness of breath likely secondary to COPD exacerbation. She was initially placed on oxygen but oxygen was later weaned off as her respiratory status improved. Patient started on aspirin 3 two 5 mg twice daily for DVT prophylaxis per orthopedic. She is discharged to follow-up with Dr. Watson in 2 weeks for wound check, jenn and posthospitalization follow-up. Medical problems addressed during the hospital stay: Right femoral subcapital fracture Status post ORIF/partial hip replacement by orthopedic surgeon Dr. Watson. Analgesics as needed. Patient declined to go to rehab and would like to go home with home health. She ambulated 250 feet with a walker during PT COPD exacerbation Acute on chronic respiratory failure with hypoxia Clinically improved. Patient weaned from oxygen to room air which she tolerated. She was treated with albuterol nebs and incentive spirometer Anxiety disorder Continued home medications. GERD Continued Protonix Hepatitis C Outpatient management Acute blood loss anemia Hemoglobin was stable after initial drop. Vital Signs/Physical Exam: Temp Pulse Resp BP Pulse Ox 97.4 F 83 16 144/66 H 97 01/15/24 12:00 01/15/24 12:00 01/15/24 13:22 01/15/24 12:01/15/24 13:22 General: Alert, In no apparent distress, Oriented x3 Neck: JVD not distended Respiratory: Clear to auscultation bilaterally, Normal air movement Cardiovascular: No edema, Regular rate/rhythm, Normal S1 S2 Gastrointestinal: Normal bowel sounds, Soft and benign, Non-distended Musculoskeletal: No swelling Integumentary: No rashes, No cyanosis Neurological: Normal strength at 5/5 x4 extr Laboratory Data at Discharge: WBC 5.10 thou/uL (4.3-10.9) 01/11/24 02:58 Hgb 8.8 g/dL (12.0-15.0) L 01/15/24 07:17 Hct 27.1 % (36.0-45.0) L 01/15/24 07:17 Plt Count 160 thou/uL (152-406) 01/11/24 02:58 Sodium 138 mEq/L (136-145) 01/15/24 07:17 Potassium 3.9 mEq/L (3.5-5.1) D 01/15/24 07:17 BUN 8 mg/dL (7-18) 01/15/24 07:17 Creatinine 0.68 mg/dL (0.55-1.02) 01/15/24 07:17 Glucose 111 mg/dL (74-106) H 01/15/24 07:17 Total Bilirubin 0.3 mg/dL (0.2-1.0) 01/11/24 02:58 AST 13 U/L (15-37) L 01/11/24 02:58 ALT 19 U/L (13-56) 01/11/24 02:58 Alkaline Phosphatase 115 U/L (45-117) 01/11/24 02:58 Home Medications: ALPRAZolam [Xanax*] 1 mg PO TID PRN 12/04/17 Amlodipine [Norvasc*] 5 mg PO DAILY 12/05/22 Pantoprazole [Protonix Tab*] 40 mg PO BID 30 Days #60 tab 12/06/22 Levothyroxine Sodium 25 mcg PO DAILY 01/11/24 Albuterol Neb [Proventil 0.083% Neb Soln] 2.5 mg NEB [id number] PRN #120 amp 01/15/24 Aspirin Tab [Ashley Aspirin*] 325 mg PO BID #60 tab 01/15/24 Hydrocodone 10/APAP 325 [[place] 10325*] 1 tab PO Q4H PRN #20 tab 01/15/24 Nebulizer 1 each MC QID #1 ea 01/15/24 Nut.tx.comp. Immune Systm,Reg [Ensure Surgery] 237 ml PO BID #30 can 01/15/24 New Medications: Albuterol Neb [Proventil 0.083% Neb Soln] 2.5 mg NEB [id number] PRN #120 amp PRN Reason: Shortness Of Breath Aspirin Tab [Ashley Aspirin*] 325 mg PO BID #60 tab Nut.tx.comp. Immune Systm,Reg [Ensure Surgery] 237 ml PO BID #30 can Nebulizer 1 each MC QID #1 ea Hydrocodone 10/APAP 325 [[place] 10/325*] 1 tab PO Q4H PRN #20 tab PRN Reason: Pain Scale 5-7 (Moderate) Physician Discharge Instructions: 73-year-old female with past medical history of Anxiety; Back pain; Colitis; GERD; Hepatitis C, known cigarette smoker fell from standing position 3 days, d eveloped right hip pain pain right hip, presented to the ED where images demonstrated right subcapital is femoral fracture. Orthopedic surgeon Dr. Watson was contacted and patient admitted for further management. Patient was admitted to the medical floor, right hip pain managed with opioids. She was evaluated by orthopedic Dr. Watsno who performed right hip bipolar arthroplasty. Patient was monitored postop, evaluated by physical therapy. She was able to ambulate 250 ft with a walker. She declined skilled or inpatient rehab and opted to go home with home health. She experienced shortness of breath likely secondary to COPD exacerbation. She was initially placed on oxygen but oxygen was later weaned off as her respiratory status improved. Patient started on aspirin 3 two 5 mg twice daily for DVT prophylaxis per orthopedic. She is discharged to follow-up with Dr. Watson in 2 weeks for wound check, jenn and posthospitalization follow-up. Diet: AHA Activity: Posterior hip precaution Followup: Jarrett Rawls MD [Primary Care Provider] - 1-2 Weeks Harsh Watson MD [ACTIVE - CAN ADMIT] - (within 2 weeks) Time spent managing pt's care (in minutes): 36
[2024-01-15 16:14] VITALS: BP 158/68; TEMP 98.1
== END 2024-01-15 16:49 | disposition home health service (06) | DRG 521 ==
LOC: ER 21:03 → ERHOLD 22:53 → 2ND 23:20
PROVIDERS: ADMIT Family Medicine; ATTEND Internal Medicine
PROC: 0SRR0JA Replacement of Right Hip Joint, Femoral Surface with Synthetic Substitute, Uncemented, Open Approach (ICD-10-PCS; principal; 2024-01-11 17:00)
DX: S72.011A Unspecified intracapsular fracture of right femur, initial encounter for closed fracture (principal); J96.21 Acute and chronic respiratory failure with hypoxia; J44.1 Chronic obstructive pulmonary disease with (acute) exacerbation; D62 Acute posthemorrhagic anemia; G89.29 Other chronic pain; M54.9 Dorsalgia, unspecified; M19.90 Unspecified osteoarthritis, unspecified site; F41.9 Anxiety disorder, unspecified; K21.9 Gastro-esophageal reflux disease without esophagitis; F17.210 Nicotine dependence, cigarettes, uncomplicated; B19.20 Unspecified viral hepatitis C without hepatic coma; Z88.6 Allergy status to analgesic agent; Z88.5 Allergy status to narcotic agent; Z88.8 Allergy status to other drugs, medicaments and biological substances; Z90.710 Acquired absence of both cervix and uterus; W01.0XXA Fall on same level from slipping, tripping and stumbling without subsequent striking against object, initial encounter; Y93.89 Activity, other specified; Y92.9 Unspecified place or not applicable; Y99.9 Unspecified external cause status
CPT/HCPCS: 36415; 72170; 80048; 80053; 81003; 85014; 85018; 85025; 88305; 88311; 94010; 94640; 96374; 96375; 97110; 97116; 97161; 97530; 99285; A4216; J0690; J1100; J1170; J1650; J2001; J2250; J2371; J2405; J2704; J3010; J3480; J7030; J7120; J7613